=== PATIENT | male | born 1940 | race Caucasian/White ===

== ENCOUNTER 2022-11-26 10:11 | Inpatient (IN) | payer OTHER ==
--- OUTSIDE RECORDS SUMMARY | 2022-11-26 10:17 | XMS REPORT | Continuity of Care Document ---
:1940 Author Organization [facility] t Address [address] [place] [address] Care Team Providers Name Role Phone BEL SNEED Attending Clinician Unavailable Bel Sneed Attending Clinician BRIANA KERN Attending Clinician Unavailable [place] LOWERY Admitting Clinician Unavailable [place] Lowery Admitting Clinician Payers Payer Name Policy Type Policy Number Effective Date Expiration Date S jaleel MEDICARE PART A [id number] 2006 00:00:00 [facility] OFFICE OF [id number] 2022 [facility] OON 00:00:00 Problems Condition Condition Condition Status Onset Resolution Last Treating Co mments Source Name Details Category Date Date Treatment Clinician Date PAIN PAIN Diagnosis Active 2022-06-09 Mem oria TAILBONE/ TAILBONE/ 03-30 13:28:00 l FALL FALL 00:00: [place] Active 00 03/30/2022 [facility] 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 Swelling Swelling Problem Active 2022-05-18 Memoria of upper of upper 09:40:54 l limb limb Melecio (finding) (finding) Active Problem 05/18/2022 [facility] Tachycardi Tachycard Problem Active 2022-05-18 Memoria a ia 09:40:54 l (finding) (finding) Herm sophie Active Problem 05/18/2022 [facility] Urinary Urinary Problem Active 2022-05-18 Me moria tract tract 09:40:54 l infectious infectious [facility] disease disease (disorder) (disorder) Active Problem 05/18/2022 [facility] Allergies, Adverse Reactions, Alerts This patient has no known allergies or adverse reactions. Social History Smoking Status Start Date Stop Date Source Social History [facility] Medications Ordered Filled Start Stop Current Ordering Indication Dosage Frequency Signature Comments Components Source Medication Medication Date Date Medication? Clinician (SIG) Name Name acetaminoph Yes 650 mg = 2 Memoria en 325 mg 2-25 tab, PO, l oral 19:47: Q8H, PRN [place] tablet. 00 Pain Score 1-3, 0 Refill(s) melatonin 3 Yes 3 mg = 1 Me moria mg oral 2-25 tab, PO, l tablet 19:43: Bedtime, [place] 00 PRN Sleep, 0 Refill(s) thiamine Yes 100 mg = 1 Mem oria 100 mg oral 2-25 tab, PO, l tablet 19:43: Daily, 0 [place]lecio 00 Refill(s) senna 8.6 Yes 17.2 mg = Mem oria mg oral 2-25 2 tab, PO, l tablet 19:43: BID, PRN Me[place]cio 00 as needed for constipati on, 0 Refill(s) aspirin 81 Yes 81 mg = 1 Me moria mg tablet, 2-25 tab, PO, l enteric 19:42: Daily, 0 Riki n coated 00 Refill(s) folic acid Yes 1 mg = 1 Mem oria 1 mg oral 2-25 tab, PO, l tablet 19:42: Daily, 0 [place] 00 Refill(s) gabapentin Yes 100 mg = 1 M emoria 100 mg oral 2-25 cap, PO, l capsule 19:42: Q8H-06, 0 Willow nn 00 Refill(s) heparin Yes 5,000 unit Haris bushra 5000 2-25 = 1 mL, l units/mL 19:42: SUB-Q, Melecio injectable 00 Q8H, 0 solution Refill(s) ferrous Yes 324 mg = 1 Haris bushra gluconate 2-25 tab, PO, l 324 mg oral 19:30: Every [place]ow nn tablet 00 Other Day, 0 Refill(s) metoprolol Yes 12.5 mg, Mem oria tartrate 2-25 PO, Q12H, l 19:30: hold for [place] SBP <110 or HR <60, 0 Refill(s) César No Notes: Memoria packet 2-23 (Same as: l 13:30: César Odell) aspirin No Notes: Do Memor ia 2-21 not crush l 15:00: or chew. (Same As: Ecotrin) PHOS-NaK No Notes: Memoria 2-16 (Same as: l 13:48: Phos-NaK) Each 1.5 gm pkt has 250mg phosphorou s. Mix w/2.5oz water and stir. Isolyte S No Notes: Memori a PH 7.4 2-16 (Same as: l 1,000 mL 01:17: Isolyte S Herm sophie 00 PH7.4, Normosol-R PH 7.4, Plasma-Lyt e A ) César No Notes: Memoria packet 2-15 (Same as: l 22:30: César Odell) heparin No Notes: Memoria 5000 2-15 porcine l units/mL 22:00: heparin Riki n injectable 00 solution No Notes: Memoria packet 2-14 (Same as: l 22:30: César Unflavored ) Administer ing CÉSAR orally: Mix into 8-10 fl oz of room temperatur e juice, soda, or water. Also mixes well with warm beverages, like coffee or tea. Can be mixed with applesauce . Thoroughly stir for 30-60 seconds or until completely dissolved Dextrose No 12.5 gm, Memor ia 50% Syringe 2-14 25 mL, l (D50W) 19:27: Route: IVP, Drug Form: INJ, Dosing Weight 68.1, kg, PRN, PRN Blood Glucose Results, Start date: 04/28/22 13:27:00 CERTIFIED ORTHOTIST/PEDORTHIST, Duration: 30 day, Stop date: 05/28/22 14:26:00 CDT, 0 glucagon No 1 mg, Memoria 2-14 Route: IM, l 19:27: Drug form: [place] 00 PDR/INJ, PRN, Dosing Weight 68.1, kg, PRN Blood Glucose Results, Start date: 04/28/22 13:27:00 CERTIFIED ORTHOTIST/PEDORTHIST, Duration: 30 day, Stop date: 05/28/22 14:26:00 CDT, 0 insulin No Notes: Memoria lispro 2-14 (Same as: l 19:27: Humalog) [place] 00 Roll in palms of hands gently; Do not shake vigorously . WASTE: F/P - Black; E - Municipal Trash Bin Stable for 28 days at room temperatur e. Expires in days from ____Date hydrALAZINE No Notes: Haris bushra 2-14 (Same as: l 18:28: Apresoline [place] 00 ) Push over 5 minutes potassium No Notes: Memori a chloride 2-14 (Same as: l 17:22: KCL) 10 [place]lecio 00 mEq/100ml product recommende d for peripheral line administra tion. Infuse no faster than 10 mEq/hr if given peripheral ly. sodium No Notes: Memoria phosphate + 2-14 Infuse l Sodium 17:22: over 4 [place] Chloride 00 hour. Do 0.9% IV 250 not infuse mL phosphorou s concurrent ly in the same line as TPN or IVF that contains calcium. For double lumen central lines, phosphorou s may be infused in a separate lumen from TPN. potassium No Notes: Memori a phosphate-s 2-14 (Same as: l odium 17:22: Phos-NaK) Melecio phosphate 00 Each 1.5 250 mg-280 gm pkt has mg-160 mg 250mg oral powder phosphorou for s. Mix reconstitut w/2.5oz ion water and stir. magnesium No Notes: Memori a sulfate 2-14 WASTE: F/P l 17:22: - Sink; E [place] - Municipal Trash Bin calcium No Notes: Memoria gluconate 2-14 Contains: l 17:22: calcium gluconate 20mg/mL NaCl 0.67% 50mL WASTE: F/P - Sink; E - Municipal Trash Bin sugammadex No Route: IV, M emoria (ANES) 2-14 Drug form: l 16:38: SOLN, [place] 00 ONCE, Stop date: 04/28/22 10:38:00 CERTIFIED ORTHOTIST/PEDORTHIST niCARdipine No Route: IV, Memoria (ANES) 2-14 Drug form: l 16:38: INJ, ONCE, Stop date: 04/28/22 10:38:00 CERTIFIED ORTHOTIST/PEDORTHIST Sodium No 1,000 mL, Memori a Chloride 2-14 Rate: 125 l 0.9% IV 16:31: ml/hr, Melecio 1,000 mL 00 Infuse over: 8 hr, Route: IV, Dosing Weight 68.1 kg, Total Volume: 1,000, Start date: 04/28/22 10:31:00 CERTIFIED ORTHOTIST/PEDORTHIST, Duration: 30 day, Stop date: 05/28/22 10:30:00 CDT, BSA: 1.83 m2, 0 ANES No Notes: Memoria hydrALAZINE 2-14 (Same as: l 16:31: Apresoline ) Push over 5 minutes ANES No Notes: Max Memoria acetaminoph 2-14 acetaminop l en 16:31: hen 4000 mg/day (4 gm/day). (Same as: Tylenol Extra Strength) ANES No Notes: Memoria fentaNYL 2-14 (Same as: l 16:31: Sublimaze) Preservati ve free. ANE No Notes: Memoria flumazenil 2-14 (Same as: l 16:31: Romazicon) [place] 00 ANES No Notes: Memoria naloxone 2-14 Same as l 16:31: Narcan ANES No Notes: Memoria ondansetron 2-14 (Same as: l 16:31: Zofran) MEDICATION WASTE Product Size: 4 mg Product Wasted: ___ mg ondansetron No Route: IV, Memoria (ANES) 2-14 Drug form: l 16:16: INJ, ONCE, Stop date: 04/28/22 10:16:00 CERTIFIED ORTHOTIST/PEDORTHIST lidocaine No Route: Memori a (ANES) 2-14 SUB-Q, l 15:24: Drug form: INJ, ONCE, Stop date: 04/28/22 9:24:00 CERTIFIED ORTHOTIST/PEDORTHIST dexamethaso No Route: IV, Memoria ne (ANES) 2-14 Drug form: l 15:24: INJ, ONCE, Stop date: 04/28/22 9:24:00 CERTIFIED ORTHOTIST/PEDORTHIST propofol 2022- No Route: IV, Mem oria (ANES) 2-14 Drug form: l 15:19: INJ, ONCE, Stop date: 04/28/22 9:19:00 CERTIFIED ORTHOTIST/PEDORTHIST rocuronium No Route: IV, M emoria (ANES) 2-14 Drug form: l 15:19: INJ, ONCE, Stop date: 04/28/22 9:19:00 CERTIFIED ORTHOTIST/PEDORTHIST phenylephri No Route: IV, Memoria ne (ANES) 2-14 Drug form: l 100 15:18: INJ, Start Melecio microgram 00 date: 04/28/22 9:18:00 CERTIFIED ORTHOTIST/PEDORTHIST, Stop date: 04/28/22 10:18:00 CERTIFIED ORTHOTIST/PEDORTHIST Sodium No Route: IV, Memor ia Chloride 2-14 Total l 0.9% IV 15:18: Volume: [place] (ANES) 500 00 500, Start mL date: 04/28/22 9:18:00 CERTIFIED ORTHOTIST/PEDORTHIST, Stop date: 04/28/22 10:18:00 CERTIFIED ORTHOTIST/PEDORTHIST fentaNYL No Route: IV, Mem oria (ANES) 2-14 Drug form: l 15:14: INJ, ONCE, Stop date: 04/28/22 9:14:00 CERTIFIED ORTHOTIST/PEDORTHIST ceFAZolin No Route: IV, Me moria (ANES) 2-14 Drug form: l 15:14: INJ, ONCE, Stop date: 04/28/22 9:14:00 CERTIFIED ORTHOTIST/PEDORTHIST phenylephri No Route: IV, Memoria ne (ANES) 2-14 Drug form: l 14:44: INJ, ONCE, Stop date: 04/28/22 8:44:00 CERTIFIED ORTHOTIST/PEDORTHIST levETIRAcet No Route: IV, Memoria am (ANES) 2-14 Drug form: l 100 mg 14:40: INJ, Start [place] date: 04/28/22 8:40:00 CERTIFIED ORTHOTIST/PEDORTHIST, Stop date: 04/28/22 9:40:00 CERTIFIED ORTHOTIST/PEDORTHIST lidocaine-e No Notes: Haris bushra pi 2-14 (Same as: l [id number] 14:35: Xylocaine He rm w/Epinephr ine) vancomycin No Route: IV, M emoria (ANES) 1000 2-14 Drug form: l mg 14:30: INJ, Start date: 04/28/22 8:30:00 CERTIFIED ORTHOTIST/PEDORTHIST, Stop date: 04/28/22 9:30:00 CERTIFIED ORTHOTIST/PEDORTHIST Isolyte S No Route: IV, Me moria PH 7.4 2-14 Total l (ANES) 1000 13:52: Volume: Her lynne mL 00 1,000, Start date: 04/28/22 7:52:00 CERTIFIED ORTHOTIST/PEDORTHIST, Stop date: 04/28/22 8:52:00 CERTIFIED ORTHOTIST/PEDORTHIST Vitamin K1 No Notes: Memor ia + Sodium 04-28 (Same as: l Chloride 10:42: Aqua-Mephy Her lynne 0.9% IV 50 00 ton, mL Vitamin K) MEDICATION WASTE Product Size: 10 mg Product Wasted: ___ mg warfarin No Notes: Samira 2-12 Nurse to l 23:00: ensure [place] 00 documentat ion of patient education per anticoagul ation policy. Avoid large intake of vitamin-K containing foods diet. (Same As: Coumadin) WASTE: F/P - P Waste Black; E - P Waste Black [facility] 3:Reproduc tive risk Hazardous Drug -- Refer to safe handling procedure PPE Matrix warfarin No Notes: Samira 2-11 Nurse to l 23:00: ensure [place] 00 documentat ion of patient education per anticoagul ation policy. Avoid large intake of vitamin-K containing foods diet. (Same As: Coumadin) WASTE: F/P - P Waste Black; E - P Waste Black [facility] Group 3:Reproduc tive risk Hazardous Drug -- Refer to safe handling procedure PPE Matrix warfarin No Notes: Memoria 2-10 Nurse to l 23:00: ensure [place] 00 documentat ion of patient education per anticoagul ation policy. Avoid large intake of vitamin-K containing foods diet. (Same As: Coumadin) WASTE: F/P - P Waste Black; E - P Waste Black [facility]ous [facility] Group 3:Reproduc tive risk Hazardous Drug -- Refer to safe handling procedure PPE Matrix heparin No Notes: Memoria additive 2-07 Total l 25,000 unit 13:23: Concentrat [place]cio [14 00 ion = 50 unit/kg/hr] unit/ ml + Premix Total Diluent volume = Sodium 500 ml Chloride Send Med 0.45% 500 Request 2 mL hours prior to next bag cefdinir No Notes: Memoria 2-02 (Same As: l 00:00: Omnicef) cefdinir No 300 mg, Memori a 2- Route: PO, l 17:40: Drug form: [place] CAP, [id number], Dosing Weight 68.1, kg, Priority: NOW, Start date: 04/15/22 11:40:00 CERTIFIED ORTHOTIST/PEDORTHIST, Duration: 4 day, Stop date: 04/18/22 23:40:00 CERTIFIED ORTHOTIST/PEDORTHIST normal No 250 mL, Memoria saline 0.9% 2 Rate: 250 l IV 250 mL 07:01: ml/hr, Riki n 00 Infuse over: 1 hr, Route: IV, Dosing Weight 68.1 kg, Total Volume: 250, Start date: 04/15/22 1:01:00 CERTIFIED ORTHOTIST/PEDORTHIST, Duration: 30 day, Stop date: 05/15/22 1:00:00 CERTIFIED ORTHOTIST/PEDORTHIST, BSA: 1.83 m2, 0 aspirin 325 No Notes: Haris bushra mg tablet 04-14 Take with l 22:51: food. finasteride No Notes: Not Memoria 1-30 commercial l 21:30: ly [place] 00 available Please see specific instructio ns from Pharmacy for jarrett alford Hazardous Drug Group 3:Reproduc tive risk Hazardous Drug -- Refer to safe handling procedure PPE Matrix cefTRIAXone No Notes: Haris bushra + sterile 04-12 (Same As: l water 10 mL 21:00: Rocephin). [place] 00 MEDICATION WASTE Product Size: 1000 mg Product Wasted: ___ mg acetaminoph No Notes: Do M emoria en 04-12 not exceed l 16:44: 4 gm/day. [place] (Same as: Tylenol) Lactated No 1,000 mL, Haris bushra Ringers IV 04-12 Rate: 75 l 1,000 mL 13:18: ml/hr, Melecio 00 Infuse over: 13.3 hr, Route: IV, Dosing Weight 68.1 kg, Total Volume: 1,000, Priority: STAT, Start date: 04/12/22 7:18:00 CERTIFIED ORTHOTIST/PEDORTHIST, Duration: 1 day, Stop date: 04/13/22 7:17:00 CERTIFIED ORTHOTIST/PEDORTHIST, BSA: 1.83 m2, 0 heparin No Notes: Memoria 5000 27 porcine l units/mL 22:00: heparin Riki n injectable 00 solution Lactated No 1,000 mL, Haris bushra Ringers IV 04-10 Rate: 75 l 1,000 mL 15:13: ml/hr, Melecio 00 Infuse over: 13.3 hr, Route: IV, Dosing Weight 68.1 kg, Total Volume: 1,000, Priority: STAT, Start date: 04/10/22 9:13:00 CERTIFIED ORTHOTIST/PEDORTHIST, Duration: 30 day, Stop date: 05/10/22 9:12:00 CERTIFIED ORTHOTIST/PEDORTHIST, BSA: 1.83 m2, 0 Lactated No 1,000 mL, Haris bushra Ringers IV 04-07 Rate: 75 l 1000 mL 17:30: ml/hr, [place] 00 Infuse over: 13.3 hr, Route: IV, Dosing Weight 68.1 kg, Total Volume: 1,000, Priority: STAT, Start date: 04/07/22 11:30:00 CERTIFIED ORTHOTIST/PEDORTHIST, Duration: 1 day, Stop date: 04/08/22 11:29:00 CERTIFIED ORTHOTIST/PEDORTHIST, BSA: 1.83 m2 heparin No Notes: Memoria additive 1-24 Total l 25,000 unit 03:56: Concentrat [place]io [14 00 ion = 50 unit/kg/hr] unit/ ml + Premix Total Diluent volume = Sodium 500 ml Chloride Send Med 0.45% 500 Request 2 mL hours prior to next bag PlasmaLyte No Notes: Memor ia A PH-7.4 1-22 (Same as: l 1,000 mL 17:40: Isolyte S Herm sophie 00 PH7.4, Normosol-R PH 7.4, Plasma-Lyt e A ) tamsulosin No 0.4 mg, Haris bushra 1-21 Route: PO, l 03:00: Drug form: [place] CAP, Bedtime, Dosing Weight 68.182, kg, Start date: 04/03/22 21:00:00 CERTIFIED ORTHOTIST/PEDORTHIST, Duration: 30 day, Stop date: 05/02/22 21:00:00 CERTIFIED ORTHOTIST/PEDORTHIST melatonin 3 No Notes: Haris bushra mg oral 1-21 (Same as: l tablet 02:43: Melatonin) [place] senna 8.6 No Notes: Memori a mg oral 1-20 (Same as: l tablet 23:00: Senokot) polyethylen No Notes: Haris bushra e glycol 1-20 Dissolve l 3350 23:00: in 8 oz of water or juice. (Same as: Miralax) SMOG Enema No 300 ml, Haris bushra 1-20 Route: HI, l 16:18: Drug Form: [place] 00 CLAUS, Dosing Weight 68.182, kg, ONCE, NOW, Start date: 04/03/22 10:18:00 CERTIFIED ORTHOTIST/PEDORTHIST, Stop date: 04/03/22 10:18:00 CERTIFIED ORTHOTIST/PEDORTHIST, 0 finasteride No Notes: Not Memoria 1-20 commercial l 15:00: ly available Please see specific instructio ns from Pharmacy for jarrett alford Hazardous Drug Group 3:Reproduc tive risk Hazardous Drug -- Refer to safe handling procedure PPE Matrix ferrous No Notes: Memoria gluconate 1-20 Give with l 324 mg oral 15:00: food. iron Melecio tablet 00 elemental 38 jo=975 mg as ferrous sulfate Dose=___mg elemental iron thiamine No Notes: Memoria -20 (Same As: l 15:00: Vitamin [place] 00 B1) folic acid No Notes: Memor ia 04-03 (Same as: l 15:00: Folvite) [place] 00 Tylenol No 1,000 mg = Haris bushra Extra 04-02 2 tab, PO, l Strength 19:18: Q4H, PRN [place]ow nn 500 mg oral 00 PRN, 0 tablet Refill(s) multivitami No 1 tab, PO, Memoria n -19 Daily, 0 l 19:17: Refill(s) [place] 00 warfarin 2 No PO, TAKE 1 M emoria mg oral -19 TAB ORALLY l tablet 19:16: EVERY WED, Willow nn 00 WED, , SAT AND SUN., 0 Refill(s) tamsulosin Yes 0.4 mg = 1 M emoria 0.4 mg oral 04-02 cap, PO, l capsule 19:14: Bedtime, 0 Herm sophie 00 Refill(s) warfarin 2 No PO, TAKE 2 M emoria mg oral -19 TAB ORALLY l tablet 19:14: EVERY MON Riki n 00 AND FRI., 0 Refill(s) polyethylen Yes 17 gm, PO, Memoria e glycol 04-02 Daily, 0 l 3350 oral 19:13: Refill(s) Her lynne powder for 00 reconstitut ion losartan No 100 mg = 1 Mem oria 100 mg oral 04-02 tab, PO, l tablet 19:12: Daily, 0 [place] 00 Refill(s) metoprolol No 100 mg = 1 M emoria tartrate -19 tab, PO, l 100 mg oral 19:12: BID, 0 Herm sophie tablet 00 Refill(s) Aquaphor No 1 appl, Memori a Healing 04-02 TOP, l topical 19:11: Daily, 0 Riki n ointment 00 Refill(s) finasteride Yes 5 mg = 1 Me moria 5 mg oral - tab, PO, l tablet 19:10: Daily, 0 [place] 00 Refill(s) ferrous No 324 mg = 1 Haris bushra gluconate -19 tab, PO, l 324 mg oral 19:08: BID, 0 Herm sophie tablet 00 Refill(s) metoprolol No Notes: Memor ia tartrate -19 (Same as: l 15:00: Lopressor) 12.5 mg=1/2 X 25 mg TAB acetaminoph No Notes: Max Memoria en - acetaminop l 04:00: hen 4000 [place] 00 mg/day (4 gm/day). (Same as: Tylenol Extra Strength) gabapentin No Notes: Memor ia 1-18 (Same as: l 22:00: Neurontin) [place] 00 oxyCODONE No Notes: Memori a immediate 1-18 (Same as: l release 21:33: Roxicodone Herm sophie ) oxyCODONE No Notes: Memori a 1-18 Same as: l 21:33: Roxicodone [place] 00 docusate-se No Notes: Haris bushra nna 50 1-18 (Same as l mg-8.6 mg 15:00: Senokot-S) He rmann oral tablet 00 Equiv. to Aislinn-Colac e. Keppra 500 No Notes: Memor ia mg oral 1-18 (Same l tablet 15:00: as:Keppra) [place] nn 00 aspirin No Notes: Do Memor ia 1-18 not crush l 15:00: or chew. [place] 00 (Same As: Ecotrin) MiraLax No Notes: Memoria 1-18 Dissolve l 14:34: in 8 oz of water or juice. (Same as: Miralax) Isolyte S No Notes: Memori a PH 7.4 1-18 (Same as: l 1,000 mL 14:32: Isolyte S Herm sophie 00 PH7.4, Normosol-R PH 7.4, Plasma-Lyt e A ) remove No Notes: Memoria patch 1-17 Remove l 20:00: patch 12 [place] 00 hours after applicatio n each day. labetalol No 20 mg, 4 Haris bushra -17 mL, Route: l 19:45: IVP, Drug form: INJ, Q2H, Dosing Weight 68.182, kg, PRN Other -See Comment, Priority: STAT, Start date: 03/31/22 13:45:00 CERTIFIED ORTHOTIST/PEDORTHIST, Duration: 3 doses or times, Stop date: Limited # of times, 0 lidocaine No Notes: Memori a 4% topical 03-31 Patch is l film 08:00: applied to Melecio intact skin to cover painful area for up to 12 hours in a 24-hour period (12 hours on and 12 hours off). Please indicate the location of applicatio n site. Site 1: Remove old patch before applicatio n of new patch. (Same as Aspercreme Lidocaine Patch) acetaminoph No Notes: Max Memoria en 03-31 acetaminop l 07:35: hen 4000 [place] 00 mg/day (4 gm/day). (Same as: Tylenol Extra Strength) gabapentin No Notes: Memor ia 03-31 (Same as: l 07:35: Neurontin) [place] 00 tramadol No Notes: Not Mem oria 03-31 to exceed l 07:35: 400mg/day. [place] 00 (Same As: Ultram) esmolol No Notes: Memoria 2500 mg in 03-31 (Same as: l NS 250 mL 03:09: Brevibloc) He rmann (Titrate.) 00 10 mg/ml IV 2,500 mg conc. esmolol No Notes: Memoria 03-31 (Same as: l 03:01: Brevibloc) [place] 00 Omnipaque No 75 mL, Memori a 350 mg/mL 03-31 Route: l 01:42: IVP, Drug Form: SOLN, Dosing Weight 68.182, kg, ONCALL, STAT, Start date: 03/30/22 19:42:00 CERTIFIED ORTHOTIST/PEDORTHIST, Duration: 1 doses or times, Dose = 2.2ml/kg, Max dose = 100ml -- "To be infused by Radiology Staff ONLY" acetaminoph No 650 mg, Mem oria en 1-16 Route: PO, l 18:38: Drug form: [place] 00 TAB, ONCE, Dosing Weight 68.182, kg, Priority: STAT, Start date: 03/30/22 12:38:00 CERTIFIED ORTHOTIST/PEDORTHIST, Stop date: 03/30/22 12:38:00 CERTIFIED ORTHOTIST/PEDORTHIST Vital Signs Vital Name Observation Time Observation Value Comments Source Temperature Oral (F) 2022-05-12 21:55:18 98.5 F [facility] [place] Respitory Rate 2022-05-12 20:00:00 Memori al [place] Systolic (mm Hg) 2022-05-12 20:00:00 Haris rial [place] Diastolic (mm Hg) 2022-05-12 20:00:00 Mem orial [place] Respitory Rate 2022-05-12 19:00:00 Memori al [place] Respitory Rate 2022-05-12 18:00:00 Memori al [place] Systolic (mm Hg) 2022-05-12 18:00:00 Haris rial [place] Diastolic (mm Hg) 2022-05-12 18:00:00 Mem orial [place] Systolic (mm Hg) 2022-05-12 17:00:00 Haris rial [place] Diastolic (mm Hg) 2022-05-12 17:00:00 Mem orial [place] Temperature Oral (F) 2022-05-12 14:43:40 98.9 F [facility] [place] Temperature Oral (F) 2022-05-12 12:02:40 98.1 F [facility] [place] Respitory Rate 2022-05-04 13:00:00 Memori al [place] Systolic (mm Hg) 2022-05-04 13:00:00 Haris rial [place] Diastolic (mm Hg) 2022-05-04 13:00:00 Mem orial [place] Respitory Rate 2022-05-04 12:00:00 Memori al [place] Systolic (mm Hg) 2022-05-04 12:00:00 Haris rial [place] Diastolic (mm Hg) 2022-05-04 12:00:00 Mem orial [place] Respitory Rate 2022-05-04 11:00:00 Memori al [place] Systolic (mm Hg) 2022-05-04 11:00:00 Haris rial [place] Diastolic (mm Hg) 2022-05-04 11:00:00 Mem orial [place] Systolic (mm Hg) 2022-05-04 06:00:00 Haris rial [place] Diastolic (mm Hg) 2022-05-04 06:00:00 Mem orial [place] Respitory Rate 2022-05-04 06:00:00 Memori al [place] Systolic (mm Hg) 2022-05-04 05:00:00 Haris rial [place] Diastolic (mm Hg) 2022-05-04 05:00:00 Mem orial [place] Respitory Rate 2022-05-04 05:00:00 Memori al [place] Systolic (mm Hg) 2022-05-04 04:00:00 Haris rial [place] Diastolic (mm Hg) 2022-05-04 04:00:00 Mem orial [place] Respitory Rate 2022-05-04 04:00:00 Memori al [place] Heart Rate 2022-05-03 13:24:42 [facility] [place] Temperature Oral (F) 2022-05-03 09:28:44 98.2 F [facility] [place] Temperature Oral (F) 2022-05-03 06:04:07 98 F [facility] [place] Temperature Oral (F) 2022-05-02 01:53:32 98.1 F [facility] [place] Heart Rate 2022-04-28 13:30:00 [facility] [place] Heart Rate 2022-04-28 10:49:26 [facility] [place] Height 2022-04-07 04:14:00 175.26 cm [facility] [place] Weight 2022-04-07 04:14:00 [facility] [place] BMI Calculated 2022-04-07 04:14:00 Memori al [place] Heart Rate 2022-04-06 05:07:45 [facility] [place] Temperature Oral (F) 2022-04-06 05:07:14 98.2 F [facility] [place] Systolic (mm Hg) 2022-04-06 05:07:11 Haris rial [place] Diastolic (mm Hg) 2022-04-06 05:07:11 Mem orial [place] Heart Rate 2022-04-06 05:07:11 [facility] [place] Systolic (mm Hg) 2022-04-06 03:51:00 Haris rial [place] Diastolic (mm Hg) 2022-04-06 03:51:00 Mem orial [place] Heart Rate 2022-04-06 03:51:00 [facility] [place] Systolic (mm Hg) 2022-04-06 01:12:02 Haris rial [place] Diastolic (mm Hg) 2022-04-06 01:12:02 Mem orial [place] Temperature Oral (F) 2022-04-06 01:11:58 98.5 F [facility] [place] Temperature Oral (F) 2022-04-05 13:45:48 98.2 F [facility] [place] Respitory Rate 2022-04-05 10:57:07 Memori al [place] Respitory Rate 2022-04-05 06:17:11 Mem[facility] al [place] Respitory Rate 2022-04-05 02:10:13 Mem[facility] al [place] Height 2022-03-30 14:31:00 175.26 cm [facility] [place] BMI Calculated 2022-03-30 14:31:00 [facility] Weight 2022-03-30 14:31:00 [facility] Procedures This patient has no known procedures. Encounters Start End Encounter Admission Attending Care Care Encounter Source Date/Time Date/Time Type Type Clinicians Facility Department ID 2022-08-26 Outpatient [facility] [id number] [place] 11:[place]:15 [id number] [facility] 2022-08-25 Outpatient [facility] [id number] [place] 16:10:11 [id number] [facility] 2022-08-21 Outpatient [facility] [id number] [place] 15:15:14 [id number] [facility] 2022-07-29 Outpatient [facility] [id number] [place] 07:36:52 [id number] [facility] 2022-07-14 Outpatient [facility] [id number] [place] 07:20:54 [id number] [facility] 2022-07-02 Outpatient [facility] [id number] [place] 11:00:08 [id number] [facility] 2022-06-10 Outpatient [facility] [id number] [place] 12:42:18 [id number] [facility] 2022-06-04 Outpatient [facility] [id number] [place] 10:41:08 [id number] [facility] 2022-05-22 Outpatient [facility] [id number] [place] 13:20:12 [id number] [facility] 2022-04-09 Outpatient [facility] [id number] [place] 09:11:52 [id number] [facility] 2022-04-08 Outpatient [facility] [id number] [place] 06:19:39 [id number] [facility] 2022-04-07 Outpatient [facility] [id number] [place] 10:59:11 [id number] [facility] 2022-03-31 Outpatient [facility] [id number] [place] 12:56:40 [id number] [facility] 2022-03-30 Emergency HFD HFD [id number] CYNTHIA - 08:54:52 [facility] 2022-06-11 2022-06-11 Outpatient [facility] [id number] [place] 10:45:00 10:45:00 Health 2022-03-30 2022-05-13 Inpatient [facility] [id number] [place] 14:30:22 01:13:[address] 2022-03-31 2022-05-12 Inpatient E NAREN [facility] MED [id number] 15:02:00 19:13:00 SHIFA 2022-03-30 2022-05-12 Outpatient Naren [facility] [id number] 08:30:22 19:13:00 Shifa 00 2022-04-28 2022-04-28 [facility] [id number] [place] 09:00:00 09:00:00 [facility] 2022-03-30 2022-03-30 Outpatient Naren [facility] [id number] 08:30:22 08:30:22 Shifa 00 2022-03-30 2022-03-30 Outpatient Naren [facility] [id number] 08:30:22 08:30:22 Shifa 00 2022-03-30 2022-03-30 Outpatient Naren [facility] [id number] 08:30:22 08:30:22 Shifa 00 Results Test Description Test Time Test Comments Results Result Comments Source [facility] [place] 2022-05-11 21:22:00 Test Item Value Reference Range Interpretation Comme nts Coronavirus (COVID-19) PRAKASH (test code = Not Detected (05/11/22 3:22 PM) Coronavirus (COVID-19) PRAKASH) [facility] ANSKJEC0707-24-42 08:02:00 Test Item Value Reference Range Interpretation Comments PTH Intact (test code = PTH Intact) 35.1 18.4-80.1 [facility]InanvblSHFOZJGFXA6439-03-60 07:24:00 Test Item Value Reference Range Interpretation Comments MCHC (test code = MCHC) 32.5 32.0-36.0 [facility] CenterUgphizbEWSERVUWQA8322-13-41 07:24:00 Test Item Value Reference Range Interpretation Comments RDW (test code = RDW) 13.8 11.5-14.5 [facility] CenterKswzgqxMVZXCOEYAU5683-70-38 07:24:00 Test Item Value Reference Range Interpretation Comments Platelet (test code = Platelet) 279 133-450 [facility] CenterCihyxmtAEBNTZZLRL3871-19-18 07:24:00 Test Item Value Reference Range Interpretation Comments MPV (test code = MPV) 8.9 7.4-10.4 [facility] CenterWwymnyoAPDBJXRWUF1957-29-12 07:24:00 Test Item Value Reference Range Interpretation Comments Segs (test code = Segs) 71.7 45.0-75.0 [facility] CenterPxcpbsxOSRGHFJMXH0201-07-50 07:24:00 Test Item Value Reference Range Interpretation Comments Lymphocytes (test code = Lymphocytes) 12.9 20.0-40.0 [facility] CenterJuladczBUCWXFNQYK6232-17-96 07:24:00 Test Item Value Reference Range Interpretation Comments Monocytes (test code = Monocytes) 8.5 2.0-12.0 [place] [address]-02-22 07:24:00 Test Item Value Reference Range Interpretation Comments Eosinophils (test code = 6.1 See_Comment [A utomated message] The Eosinophils) system which ge nerated this result tra nsmitted reference range : <=4.0. The reference r migdalia was not used to int erpret this result as normal/abnormal . [facility] CenterYuproixDTEUKRCMLO9822-96-72 07:24:00 Test Item Value Reference Range Interpretation Comments Basophils (test code = 0.8 See_Comment [Aut omated message] The Basophils) system which ge nerated this result tra nsmitted reference range : <=1.0. The reference r migdalia was not used to int erpret this result as normal/abnormal . [place] [address]-02-22 07:24:00 Test Item Value Reference Range Interpretation Comments Neutrophils # (test code = Neutrophils 4.1 1.5-8.1 #) [facility] CenterRczfnxcSPTLOHOXYS3069-05-41 07:24:00 Test Item Value Reference Range Interpretation Comments Lymphocytes # (test code = Lymphocytes 0.7 1.0-5.5 #) [place] [address]-02-22 07:24:00 Test Item Value Reference Range Interpretation Comments Monocytes # (test code 0.5 See_Comment [Aut omated message] The = Monocytes #) system which generated this result tra nsmitted reference range : <=0.8. The reference r migdalia was not used to int erpret this result as normal/abnormal . [place] [address]-02-22 07:24:00 Test Item Value Reference Range Interpretation Comments Eosinophils # (test code 0.4 See_Comment [A utomated message] The = Eosinophils #) system whic h generated this result tra nsmitted reference range : <=0.5. The reference r migdalia was not used to int erpret this result as normal/abnormal . [place] 688313-02-22 07:24:00 Test Item Value Reference Range Interpretation Comments Ca Ion WB (test code = Ca Ion WB) 1.33 1.05-1.25 [place] 688313-02-22 07:24:00 Test Item Value Reference Range Interpretation Comments Ca Ion at pH 7.4 WB (test code = Ca Ion 1.32 1.05-1.25 at pH 7.4 WB) [facility]2023-02-22 07:24:00 Test Item Value Reference Range Interpretation Comments Magnesium Lvl (test code = Magnesium 2.6 1.8-2.4 Lvl) [place] 171813-02-22 07:24:00 Test Item Value Reference Range Interpretation Comments Phosphorus (test code = Phosphorus) 3.0 2.5-4.5 [place] [address]-02-22 07:24:00 Test Item Value Reference Range Interpretation Comments WBC (test code = WBC) 5.8 3.7-10.4 [place] [address]-02-22 07:24:00 Test Item Value Reference Range Interpretation Comments RBC (test code = RBC) 2.89 4.70-6.10 [place] [address]-02-22 07:24:00 Test Item Value Reference Range Interpretation Comments Hgb (test code = Hgb) 8.5 14.0-18.0 [place] [address]-02-22 07:24:00 Test Item Value Reference Range Interpretation Comments Hct (test code = Hct) 26.2 42.0-54.0 [place] [address]-02-22 07:24:00 Test Item Value Reference Range Interpretation Comments MCV (test code = MCV) 90.4 80.0-94.0 [place] [address]-02-22 07:24:00 Test Item Value Reference Range Interpretation Comments MCH (test code = MCH) 29.4 pg 27.0-31.0 [place] 171813-02-21 06:22:00 Test Item Value Reference Range Interpretation Comments Glucose Lvl (test code = Glucose Lvl) 115 70-99 [place] 171813-02-21 06:22:00 Test Item Value Reference Range Interpretation Comments BUN (test code = BUN) 47 7-22 [place] 171813-02-21 06:22:00 Test Item Value Reference Range Interpretation Comments Creatinine Lvl (test code = Creatinine 0.95 0.50-1.40 Lvl) [place] 171813-02-21 06:22:00 Test Item Value Reference Range Interpretation Comments Sodium Lvl (test code = Sodium Lvl) 136 135-145 [place] 171813-02-21 06:22:00 Test Item Value Reference Range Interpretation Comments Potassium Lvl (test code = Potassium 4.8 3.5-5.1 Lvl) [place] 171813-02-21 06:22:00 Test Item Value Reference Range Interpretation Comments Chloride Lvl (test code = Chloride Lvl) 105 95-109 [place] 171813-02-21 06:22:00 Test Item Value Reference Range Interpretation Comments CO2 (test code = CO2) 28 24-32 [place] 171813-02-21 06:22:00 Test Item Value Reference Range Interpretation Comments Calcium Lvl (test code = Calcium Lvl) 9.7 8.5-10.5 [place] 171813-02-21 06:22:00 Test Item Value Reference Range Interpretation Comments AGAP (test code = AGAP) 7.8 10.0-20.0 [place] [address]-02-21 06:22:00 Test Item Value Reference Range Interpretation Comments eGFR (test code = eGFR) 80 [place] 171813-02-21 06:22:00 Test Item Value Reference Range Interpretation Comments Magnesium Lvl (test code = Magnesium 2.2 1.8-2.4 Lvl) [place] [address]-02-21 06:22:00 Test Item Value Reference Range Interpretation Comments Phosphorus (test code = Phosphorus) 2.3 2.5-4.5 [place] [address]-02-21 06:22:00 Test Item Value Reference Range Interpretation Comments PT (test code = PT) 13.4 s 12.0-14.7 [place] [address]-02-21 06:22:00 Test Item Value Reference Range Interpretation Comments INR (test code = INR) 1.02 1 0.85-1.17 [place] [address]-02-21 06:22:00 Test Item Value Reference Range Interpretation Comments PTT (test code = PTT) 32.6 s 22.9-35.8 [place] [address]-02-21 06:22:00 Test Item Value Reference Range Interpretation Comments WBC (test code = WBC) 7.0 3.7-10.4 [place] [address]-02-21 06:22:00 Test Item Value Reference Range Interpretation Comments RBC (test code = RBC) 2.64 4.70-6.10 [place] [address]-02-21 06:22:00 Test Item Value Reference Range Interpretation Comments Hgb (test code = Hgb) 7.6 14.0-18.0 [place] [address]-02-21 06:22:00 Test Item Value Reference Range Interpretation Comments Hct (test code = Hct) 23.5 42.0-54.0 [place] [address]-02-21 06:22:00 Test Item Value Reference Range Interpretation Comments MCV (test code = MCV) 89.0 80.0-94.0 [place] [address]-02-21 06:22:00 Test Item Value Reference Range Interpretation Comments MCH (test code = MCH) 28.9 pg 27.0-31.0 [place] [address]-02-21 06:22:00 Test Item Value Reference Range Interpretation Comments MCHC (test code = MCHC) 32.5 32.0-36.0 [place] [address]-02-21 06:22:00 Test Item Value Reference Range Interpretation Comments RDW (test code = RDW) 13.5 11.5-14.5 [place] [address]-02-21 06:22:00 Test Item Value Reference Range Interpretation Comments Platelet (test code = Platelet) 271 133-450 [place] [address]-02-21 06:22:00 Test Item Value Reference Range Interpretation Comments MPV (test code = MPV) 8.7 7.4-10.4 [place] [address]-02-21 06:22:00 Test Item Value Reference Range Interpretation Comments Segs (test code = Segs) 77.2 45.0-75.0 [place] [address]-02-21 06:22:00 Test Item Value Reference Range Interpretation Comments Lymphocytes (test code = Lymphocytes) 9.9 20.0-40.0 [facility] CenterJeemyjtECEGZAZOPE1381-57-13 06:22:00 Test Item Value Reference Range Interpretation Comments Monocytes (test code = Monocytes) 8.5 2.0-12.0 [place] [address]-02-21 06:22:00 Test Item Value Reference Range Interpretation Comments Eosinophils (test code = 4.0 See_Comment [A utomated message] The Eosinophils) system which nerated this result tra nsmitted reference range : <=4.0. The reference r migdalia was not used to int erpret this result as normal/abnormal . [place] [address]-02-21 06:22:00 Test Item Value Reference Range Interpretation Comments Basophils (test code = 0.4 See_Comment [Aut omated message] The Basophils) system which ge nerated this result tra nsmitted reference range : <=1.0. The reference r migdalia was not used to int erpret this result as normal/abnormal . [place] [address]-02-21 06:22:00 Test Item Value Reference Range Interpretation Comments Neutrophils # (test code = Neutrophils 5.4 1.5-8.1 #) [place] [address]-02-21 06:22:00 Test Item Value Reference Range Interpretation Comments Lymphocytes # (test code = Lymphocytes 0.7 1.0-5.5 #) [facility] CenterTalmhfsKRNZWKAKUV0072-50-88 06:22:00 Test Item Value Reference Range Interpretation Comments Monocytes # (test code 0.6 See_Comment [Aut omated message] The = Monocytes #) system which generated this result tra nsmitted reference range : <=0.8. The reference r migdalia was not used to int erpret this result as normal/abnormal . [place] [address]-02-21 06:22:00 Test Item Value Reference Range Interpretation Comments Eosinophils # (test code 0.3 See_Comment [A utomated message] The = Eosinophils #) system whic h generated this result tra nsmitted reference range : <=0.5. The reference r migdalia was not used to int erpret this result as normal/abnormal . [facility]2023-02-20 06:09:00 Test Item Value Reference Range Interpretation Comments Phosphorus (test code = Phosphorus) 3.0 2.5-4.5 [place] 171813-02-20 06:09:00 Test Item Value Reference Range Interpretation Comments Glucose Lvl (test code = Glucose Lvl) 109 70-99 [place] 171813-02-20 06:09:00 Test Item Value Reference Range Interpretation Comments BUN (test code = BUN) 34 7-22 [place] [address]-02-20 06:09:00 Test Item Value Reference Range Interpretation Comments Creatinine Lvl (test code = Creatinine 0.96 0.50-1.40 Lvl) [place] 171813-02-20 06:09:00 Test Item Value Reference Range Interpretation Comments Sodium Lvl (test code = Sodium Lvl) 136 135-145 [place] 171813-02-20 06:09:00 Test Item Value Reference Range Interpretation Comments Potassium Lvl (test code = Potassium 4.1 3.5-5.1 Lvl) [place] 171813-02-20 06:09:00 Test Item Value Reference Range Interpretation Comments Chloride Lvl (test code = Chloride Lvl) 105 95-109 [facility]2023-02-20 06:09:00 Test Item Value Reference Range Interpretation Comments CO2 (test code = CO2) 28 24-32 [facility]2023-02-20 06:09:00 Test Item Value Reference Range Interpretation Comments Calcium Lvl (test code = Calcium Lvl) 9.3 8.5-10.5 [facility]2023-02-20 06:09:00 Test Item Value Reference Range Interpretation Comments AGAP (test code = AGAP) 7.1 10.0-20.0 [facility]2023-02-20 06:09:00 Test Item Value Reference Range Interpretation Comments eGFR (test code = eGFR) 79 [facility]2023-02-20 06:09:00 Test Item Value Reference Range Interpretation Comments Magnesium Lvl (test code = Magnesium 2.2 1.8-2.4 Lvl) [facility] CenterIkvwlqfQMOSNFLJEC2658-88-42 06:09:00 Test Item Value Reference Range Interpretation Comments Segs (test code = Segs) 78.0 45.0-75.0 [facility] CenterQsqvwbjZKOYAEULSV0365-50-72 06:09:00 Test Item Value Reference Range Interpretation Comments Lymphocytes (test code = Lymphocytes) 8.1 20.0-40.0 [facility] CenterLywqifmSRUPUVWCYU7673-76-53 06:09:00 Test Item Value Reference Range Interpretation Comments Monocytes (test code = Monocytes) 9.7 2.0-12.0 [facility] CenterTfmukzaUAXPJIUWNE0169-48-93 06:09:00 Test Item Value Reference Range Interpretation Comments Eosinophils (test code = 3.8 See_Comment [A utomated message] The Eosinophils) system which ge nerated this result tra nsmitted reference range : <=4.0. The reference r migdalia was not used to int erpret this result as normal/abnormal . [facility] CenterVrntwooEFJSRXOZYS8899-26-41 06:09:00 Test Item Value Reference Range Interpretation Comments Basophils (test code = 0.4 See_Comment [Aut omated message] The Basophils) system which ge nerated this result tra nsmitted reference range : <=1.0. The reference r migdalia was not used to int erpret this result as normal/abnormal . [place] [address]-02-20 06:09:00 Test Item Value Reference Range Interpretation Comments Neutrophils # (test code = Neutrophils 5.3 1.5-8.1 #) [facility] CenterDqxomzqJLMJYHQSNW9762-73-10 06:09:00 Test Item Value Reference Range Interpretation Comments Lymphocytes # (test code = Lymphocytes 0.5 1.0-5.5 #) [facility] CenterVflulplANIUQRVXWJ7627-45-98 06:09:00 Test Item Value Reference Range Interpretation Comments Monocytes # (test code 0.7 See_Comment [Aut omated message] The = Monocytes #) system which generated this result tra nsmitted reference range : <=0.8. The reference r migdalia was not used to int erpret this result as normal/abnormal . [facility] CenterDyxzcpyZMYGZQLPUF7584-65-39 06:09:00 Test Item Value Reference Range Interpretation Comments Eosinophils # (test code 0.3 See_Comment [A utomated message] The = Eosinophils #) system whic h generated this result tra nsmitted reference range : <=0.5. The reference r migdalia was not used to int erpret this result as normal/abnormal . [facility] CenterEohamxsQYBICDUYBR1091-02-73 06:09:00 Test Item Value Reference Range Interpretation Comments WBC (test code = WBC) 6.7 3.7-10.4 [place] [address]-02-20 06:09:00 Test Item Value Reference Range Interpretation Comments RBC (test code = RBC) 2.53 4.70-6.10 [place] [address]-02-20 06:09:00 Test Item Value Reference Range Interpretation Comments Hgb (test code = Hgb) 7.4 14.0-18.0 [place] [address]-02-20 06:09:00 Test Item Value Reference Range Interpretation Comments Hct (test code = Hct) 22.5 42.0-54.0 [place] [address]-02-20 06:09:00 Test Item Value Reference Range Interpretation Comments MCV (test code = MCV) 88.6 80.0-94.0 [place] [address]-02-20 06:09:00 Test Item Value Reference Range Interpretation Comments MCH (test code = MCH) 29.4 pg 27.0-31.0 [facility] CenterMascpttPXBEBEHUCZ5128-73-98 06:09:00 Test Item Value Reference Range Interpretation Comments MCHC (test code = MCHC) 33.1 32.0-36.0 [facility] CenterUqyfttxXAPDEZOLJK5218-39-42 06:09:00 Test Item Value Reference Range Interpretation Comments RDW (test code = RDW) 13.4 11.5-14.5 [facility] CenterYkbllctIHVVMXXVNZ1183-18-18 06:09:00 Test Item Value Reference Range Interpretation Comments Platelet (test code = Platelet) 269 133-450 [facility] CenterLsviqfzARQOYPBLPH9205-58-99 06:09:00 Test Item Value Reference Range Interpretation Comments MPV (test code = MPV) 8.9 7.4-10.4 [facility] CenterFjbzxudCMWIVHIYUD8330-51-18 06:09:00 Test Item Value Reference Range Interpretation Comments PT (test code = PT) 13.2 s 12.0-14.7 [facility] CenterSmyglpgPVANCLEGCJ4196-27-64 06:09:00 Test Item Value Reference Range Interpretation Comments INR (test code = INR) 1.00 1 0.85-1.17 [facility] CenterXdkbuwuXTCYIYQKHT7288-83-65 06:09:00 Test Item Value Reference Range Interpretation Comments PTT (test code = PTT) 34.4 s 22.9-35.8 [facility] MYTWKQE6452-68-22 06:09:00 Test Item Value Reference Range Interpretation Comments Ca Ion WB (test code = Ca Ion WB) 1.29 1.05-1.25 [facility]RO[facility] PIRHEWO8710-84-03 06:09:00 Test Item Value Reference Range Interpretation Comments Ca Ion at pH 7.4 WB (test code = Ca Ion 1.33 1.05-1.25 at pH 7.4 WB) [facility]entonEnel OGK-5 FZGBI1125-91-36 07:06:00 Test Item Value Reference Range Interpretation Comments Magnesium Lvl (test code = Magnesium 2.3 1.8-2.4 Lvl) [facility]enton[facility] OGK-5 XWPXN4980-10-24 07:06:00 Test Item Value Reference Range Interpretation Comments Phosphorus (test code = Phosphorus) 3.1 2.5-4.5 [facility]2023-02-19 07:06:00 Test Item Value Reference Range Interpretation Comments Glucose Lvl (test code = Glucose Lvl) 104 70-99 [facility]2023-02-19 07:06:00 Test Item Value Reference Range Interpretation Comments BUN (test code = BUN) 38 7-22 [place] 171813-02-19 07:06:00 Test Item Value Reference Range Interpretation Comments Creatinine Lvl (test code = Creatinine 0.92 0.50-1.40 Lvl) [place] 171813-02-19 07:06:00 Test Item Value Reference Range Interpretation Comments Sodium Lvl (test code = Sodium Lvl) 137 135-145 [place] 171813-02-19 07:06:00 Test Item Value Reference Range Interpretation Comments Potassium Lvl (test code = Potassium 4.2 3.5-5.1 Lvl) [place] 171813-02-19 07:06:00 Test Item Value Reference Range Interpretation Comments Chloride Lvl (test code = Chloride Lvl) 105 95-109 [place] 171813-02-19 07:06:00 Test Item Value Reference Range Interpretation Comments CO2 (test code = CO2) 28 24-32 [place] 171813-02-19 07:06:00 Test Item Value Reference Range Interpretation Comments Calcium Lvl (test code = Calcium Lvl) 9.2 8.5-10.5 [place] 171813-02-19 07:06:00 Test Item Value Reference Range Interpretation Comments AGAP (test code = AGAP) 8.2 10.0-20.0 [place] 171813-02-19 07:06:00 Test Item Value Reference Range Interpretation Comments eGFR (test code = eGFR) 84 [place] [address]-02-19 07:06:00 Test Item Value Reference Range Interpretation Comments Segs (test code = Segs) 81.1 45.0-75.0 [place] [address]-02-19 07:06:00 Test Item Value Reference Range Interpretation Comments Lymphocytes (test code = Lymphocytes) 7.9 20.0-40.0 [place] [address]-02-19 07:06:00 Test Item Value Reference Range Interpretation Comments Monocytes (test code = Monocytes) 7.4 2.0-12.0 [place] [address]-02-19 07:06:00 Test Item Value Reference Range Interpretation Comments Eosinophils (test code = 3.3 See_Comment [A utomated message] The Eosinophils) system which ge nerated this result tra nsmitted reference range : <=4.0. The reference r migdalia was not used to int erpret this result as normal/abnormal . [facility] CenterJaqdatpWZGGMQBDBN5148-84-50 07:06:00 Test Item Value Reference Range Interpretation Comments Basophils (test code = 0.3 See_Comment [Aut omated message] The Basophils) system which ge nerated this result tra nsmitted reference range : <=1.0. The reference r migdalia was not used to int erpret this result as normal/abnormal . [facility] CenterCiwkkfiTORTXTVLSL7748-41-23 07:06:00 Test Item Value Reference Range Interpretation Comments Neutrophils # (test code = Neutrophils 5.7 1.5-8.1 #) [facility] CenterMlpguxwXVRRVHSRNB2285-98-01 07:06:00 Test Item Value Reference Range Interpretation Comments Lymphocytes # (test code = Lymphocytes 0.6 1.0-5.5 #) [facility] CenterNtjmvnxSRNTQHQQRK1625-19-77 07:06:00 Test Item Value Reference Range Interpretation Comments Monocytes # (test code 0.5 See_Comment [Aut omated message] The = Monocytes #) system which generated this result tra nsmitted reference range : <=0.8. The reference r migdalia was not used to int erpret this result as normal/abnormal . [facility] CenterKcxmparQYETVGUHFF6890-34-13 07:06:00 Test Item Value Reference Range Interpretation Comments Eosinophils # (test code 0.2 See_Comment [A utomated message] The = Eosinophils #) system whic h generated this result tra nsmitted reference range : <=0.5. The reference r migdalia was not used to int erpret this result as normal/abnormal . [facility] CenterMdbxgtbVIPBEAPEIF2466-18-43 07:06:00 Test Item Value Reference Range Interpretation Comments PT (test code = PT) 13.0 s 12.0-14.7 [facility] CenterCfvlmjfCYWMOXWSKL2571-45-76 07:06:00 Test Item Value Reference Range Interpretation Comments INR (test code = INR) 0.98 1 0.85-1.17 [facility] CenterBtpldvnXJGNANIOYD0638-54-02 07:06:00 Test Item Value Reference Range Interpretation Comments PTT (test code = PTT) 35.6 s 22.9-35.8 [place] [address]-02-19 07:06:00 Test Item Value Reference Range Interpretation Comments WBC (test code = WBC) 7.1 3.7-10.4 [place] [address]-02-19 07:06:00 Test Item Value Reference Range Interpretation Comments RBC (test code = RBC) 2.63 4.70-6.10 [place] [address]-02-19 07:06:00 Test Item Value Reference Range Interpretation Comments Hgb (test code = Hgb) 7.6 14.0-18.0 [place] [address]-02-19 07:06:00 Test Item Value Reference Range Interpretation Comments Hct (test code = Hct) 23.4 42.0-54.0 [place] [address]-02-19 07:06:00 Test Item Value Reference Range Interpretation Comments MCV (test code = MCV) 88.9 80.0-94.0 [place] [address]-02-19 07:06:00 Test Item Value Reference Range Interpretation Comments MCH (test code = MCH) 29.0 pg 27.0-31.0 [place] [address]-02-19 07:06:00 Test Item Value Reference Range Interpretation Comments MCHC (test code = MCHC) 32.7 32.0-36.0 [place] [address]-02-19 07:06:00 Test Item Value Reference Range Interpretation Comments RDW (test code = RDW) 13.9 11.5-14.5 [place] [address]-02-19 07:06:00 Test Item Value Reference Range Interpretation Comments Platelet (test code = Platelet) 252 133-450 [facility] CenterBymjvcaKXOVCDBNCO5196-39-43 07:06:00 Test Item Value Reference Range Interpretation Comments MPV (test code = MPV) 9.0 7.4-10.4 [facility]2023-02-18 10:43:00 Test Item Value Reference Range Interpretation Comments Glucose Lvl (test code = Glucose Lvl) 98 70-99 [facility]2023-02-18 10:43:00 Test Item Value Reference Range Interpretation Comments BUN (test code = BUN) 33 7-22 [place] 171813-02-18 10:43:00 Test Item Value Reference Range Interpretation Comments Creatinine Lvl (test code = Creatinine 0.80 0.50-1.40 Lvl) [place] 171813-02-18 10:43:00 Test Item Value Reference Range Interpretation Comments Sodium Lvl (test code = Sodium Lvl) 137 135-145 [place] 171813-02-18 10:43:00 Test Item Value Reference Range Interpretation Comments Potassium Lvl (test code = Potassium 3.8 3.5-5.1 Lvl) [place] 171813-02-18 10:43:00 Test Item Value Reference Range Interpretation Comments Chloride Lvl (test code = Chloride Lvl) 104 95-109 [place] 171813-02-18 10:43:00 Test Item Value Reference Range Interpretation Comments CO2 (test code = CO2) 28 24-32 [place] 171813-02-18 10:43:00 Test Item Value Reference Range Interpretation Comments Calcium Lvl (test code = Calcium Lvl) 9.5 8.5-10.5 [place] 171813-02-18 10:43:00 Test Item Value Reference Range Interpretation Comments AGAP (test code = AGAP) 8.8 10.0-20.0 [facility]2023-02-18 10:43:00 Test Item Value Reference Range Interpretation Comments eGFR (test code = eGFR) 89 [facility]2023-02-18 10:43:00 Test Item Value Reference Range Interpretation Comments Magnesium Lvl (test code = Magnesium 2.3 1.8-2.4 Lvl) [place] 171813-02-18 10:43:00 Test Item Value Reference Range Interpretation Comments Phosphorus (test code = Phosphorus) 2.8 2.5-4.5 [place] 188793-02-18 10:43:00 Test Item Value Reference Range Interpretation Comments Segs (test code = Segs) 76.8 45.0-75.0 [place] [address]-02-18 10:43:00 Test Item Value Reference Range Interpretation Comments Lymphocytes (test code = Lymphocytes) 10.4 20.0-40.0 [place] [address]-02-18 10:43:00 Test Item Value Reference Range Interpretation Comments Monocytes (test code = Monocytes) 9.5 2.0-12.0 [address]02-18 10:43:00 Test Item Value Reference Range Interpretation Comments Eosinophils (test code = 2.9 See_Comment [A utomated message] The Eosinophils) system which ge nerated this result tra nsmitted reference range : <=4.0. The reference r migdalia was not used to int erpret this result as normal/abnormal . [facility] CenterEvcoljrGRDFNLMLZO2681-27-60 10:43:00 Test Item Value Reference Range Interpretation Comments Basophils (test code = 0.4 See_Comment [Aut omated message] The Basophils) system which ge nerated this result tra nsmitted reference range : <=1.0. The reference r migdalia was not used to int erpret this result as normal/abnormal . [facility] CenterYyqpdmzCQVRLKGGIQ6553-55-69 10:43:00 Test Item Value Reference Range Interpretation Comments Neutrophils # (test code = Neutrophils 4.6 1.5-8.1 #) [facility] CenterMoojkweMWAAJHRSAV6599-02-89 10:43:00 Test Item Value Reference Range Interpretation Comments Lymphocytes # (test code = Lymphocytes 0.6 1.0-5.5 #) [facility] CenterStcaobxLJMAIAHJJE5952-71-83 10:43:00 Test Item Value Reference Range Interpretation Comments Monocytes # (test code 0.6 See_Comment [Aut omated message] The = Monocytes #) system which generated this result tra nsmitted reference range : <=0.8. The reference r migdalia was not used to int erpret this result as normal/abnormal . [facility] CenterCcwoqnwRWUBTEWJMN8187-00-56 10:43:00 Test Item Value Reference Range Interpretation Comments Eosinophils # (test code 0.2 See_Comment [A utomated message] The = Eosinophils #) system whic h generated this result tra nsmitted reference range : <=0.5. The reference r migdalia was not used to int erpret this result as normal/abnormal . [facility] CenterOqxpoiiCPLWXWZSLL7825-65-31 10:43:00 Test Item Value Reference Range Interpretation Comments WBC (test code = WBC) 6.0 3.7-10.4 [place] 188793-02-18 10:43:00 Test Item Value Reference Range Interpretation Comments RBC (test code = RBC) 2.61 4.70-6.10 [place] 188793-02-18 10:43:00 Test Item Value Reference Range Interpretation Comments Hgb (test code = Hgb) 7.9 14.0-18.0 [place] 188793-02-18 10:43:00 Test Item Value Reference Range Interpretation Comments Hct (test code = Hct) 23.6 42.0-54.0 [place] 188793-02-18 10:43:00 Test Item Value Reference Range Interpretation Comments MCV (test code = MCV) 90.4 80.0-94.0 [place] 188793-02-18 10:43:00 Test Item Value Reference Range Interpretation Comments MCH (test code = MCH) 30.3 pg 27.0-31.0 [facility] CenterCjxgnpcDZQEXJZCTB7404-98-62 10:43:00 Test Item Value Reference Range Interpretation Comments MCHC (test code = MCHC) 33.5 32.0-36.0 [facility] CenterOpuhrjvFSJOGUUWXS5789-09-07 10:43:00 Test Item Value Reference Range Interpretation Comments RDW (test code = RDW) 13.5 11.5-14.5 [facility] CenterMovwldpQQNDWMJJUS1374-83-97 10:43:00 Test Item Value Reference Range Interpretation Comments Platelet (test code = Platelet) 254 133-450 [facility] CenterBscatqzVIVIFIMSIE3207-61-51 10:43:00 Test Item Value Reference Range Interpretation Comments MPV (test code = MPV) 9.0 7.4-10.4 [facility] CenterFdvjylkCEWKUHSSSB8579-03-93 10:43:00 Test Item Value Reference Range Interpretation Comments PT (test code = PT) 14.0 s 12.0-14.7 [place] 188793-02-18 10:43:00 Test Item Value Reference Range Interpretation Comments INR (test code = INR) 1.08 1 0.85-1.17 [place] [address]-02-18 10:43:00 Test Item Value Reference Range Interpretation Comments PTT (test code = PTT) 34.9 s 22.9-35.8 [facility]2023-02-17 09:37:00 Test Item Value Reference Range Interpretation Comments Magnesium Lvl (test code = Magnesium 2.4 1.8-2.4 Lvl) [facility] [id number] 09:37:00 Test Item Value Reference Range Interpretation Comments Phosphorus (test code = Phosphorus) 2.9 2.5-4.5 [place] [address]-02-17 09:37:00 Test Item Value Reference Range Interpretation Comments Glucose Lvl (test code = Glucose Lvl) 105 70-99 [place] [address]-02-17 09:37:00 Test Item Value Reference Range Interpretation Comments BUN (test code = BUN) 34 7-22 [place] 171813-02-17 09:37:00 Test Item Value Reference Range Interpretation Comments Creatinine Lvl (test code = Creatinine 0.90 0.50-1.40 Lvl) [address]02-17 09:37:00 Test Item Value Reference Range Interpretation Comments Sodium Lvl (test code = Sodium Lvl) 136 135-145 [place] [address]-02-17 09:37:00 Test Item Value Reference Range Interpretation Comments Potassium Lvl (test code = Potassium 3.8 3.5-5.1 Lvl) [place] 171813-02-17 09:37:00 Test Item Value Reference Range Interpretation Comments Chloride Lvl (test code = Chloride Lvl) 105 95-109 [place] [address]-02-17 09:37:00 Test Item Value Reference Range Interpretation Comments CO2 (test code = CO2) 26 24-32 [place] 171813-02-17 09:37:00 Test Item Value Reference Range Interpretation Comments Calcium Lvl (test code = Calcium Lvl) 9.6 8.5-10.5 [place] 171813-02-17 09:37:00 Test Item Value Reference Range Interpretation Comments AGAP (test code = AGAP) 8.8 10.0-20.0 [place] 171813-02-17 09:37:00 Test Item Value Reference Range Interpretation Comments eGFR (test code = eGFR) 86 [facility] [id number] 09:37:00 Test Item Value Reference Range Interpretation Comments Ca Ion WB (test code = Ca Ion WB) 1.28 1.05-1.25 [place] 688313-02-17 09:37:00 Test Item Value Reference Range Interpretation Comments Ca Ion at pH 7.4 WB (test code = Ca Ion 1.26 1.05-1.25 at pH 7.4 WB) [facility] DentonQtaqesoSRLOLLLKWD1369-65-25 07:00:00 Test Item Value Reference Range Interpretation Comments Basophils # (test code 0.1 See_Comment [Aut omated message] The = Basophils #) system which generated this result tra nsmitted reference range : <=0.2. The reference r migdalia was not used to int erpret this result as normal/abnormal . [facility] DentonEaeztalPDGVXYYFOB1646-96-35 21:33:00 Test Item Value Reference Range Interpretation Comments Coronavirus (COVID-19) Not Detected (04/29/22 PRAKASH (test code = 3:33 PM) Coronavirus (COVID-19) PRAKASH) [facility]entonCARDIAC EMGPGNY0560-55-28 07:34:00 Test Item Value Reference Range Interpretation Comments HS Troponin I (test code = HS Troponin 8 I) [facility] CenterannPARATHYROID [id number] 07:34:00 Test Item Value Reference Range Interpretation Comments Ca Ion WB (test code = Ca Ion WB) 1.30 1.05-1.25 [facility] CenterannPARATHYROID IFISQGJ8917-12-76 07:34:00 Test Item Value Reference Range Interpretation Comments Ca Ion at pH 7.4 WB (test code = Ca Ion 1.35 1.05-1.25 at pH 7.4 WB) [facility] DentonHblzytmCDQXMRANPE7882-09-07 16:38:00 Test Item Value Reference Range Interpretation Comments ACT (TEG) Rapid (test code = ACT (TEG) 105 s 86-118 Rapid) [facility] HospitalUcfuvegCCUIWPPQVS1554-35-40 16:38:00 Test Item Value Reference Range Interpretation Comments Split Point Rapid (test code = Split 0.5 min Point Rapid) [facility] DentonJahlbbhNROLMPAMEC2390-43-60 16:38:00 Test Item Value Reference Range Interpretation Comments R-time Rapid (test code = R-time 0.6 min 0.4-0.7 Rapid) [facility] HospitalFqwqcguHQYGPBGRWW4332-22-50 16:38:00 Test Item Value Reference Range Interpretation Comments K-time Rapid (test code = K-time 0.8 min 0.6-2.3 Rapid) [facility] HospitalZbzsufgKIXWXUWTHF2400-03-04 16:38:00 Test Item Value Reference Range Interpretation Comments Angle Rapid (test code = Angle 83 degrees 64-80 Rapid) [facility] HospitalNaljeefGZTQKGIBMU0493-03-48 16:38:00 Test Item Value Reference Range Interpretation Comments Max Amplitude Rapid (test code = Max 80 mm 52-71 Amplitude Rapid) [facility] CenterRwhjibiUYXGBTTYZI7571-04-32 16:38:00 Test Item Value Reference Range Interpretation Comments G-value Rapid (test code = G-value 20.1 5.0-11.6 Rapid) [facility] CenterWobmmdtLFZHJKNZDJ2064-04-34 16:38:00 Test Item Value Reference Range Interpretation Comments Estimated % Lysis Rapid 0.0 See_Comment [Au tomated message] The (test code = Estimated syste m which generated % Lysis Rapid) this result t ransmitted reference range : <=7.5. The reference r migdalia was not used to int erpret this result as normal/abnormal . [facility] CenterVyopta [id number] 15:02:00 Test Item Value Reference Range Interpretation Comments RBC product (test code Product available = RBC product) (04/28/22 9:02 AM) [facility] CenterVyopta SUCMHQJ7318-26-47 09:13:00 Test Item Value Reference Range Interpretation Comments ABO/Rh (test code = ABO/Rh) B POS [facility] [employer] [id number] 09:13:00 Test Item Value Reference Range Interpretation Comments Antibody Scrn (test Negative (04/28/22 3:13 code = Antibody Scrn) AM) [facility] DentonSufwelsSOMDAKVNPH2323-42-34 03:18:00 Test Item Value Reference Range Interpretation Comments ACT (TEG) Rapid (test code = ACT (TEG) 97 s 86-118 Rapid) [facility] DentonKmcbmsdROMCEYSKVC6245-26-16 03:18:00 Test Item Value Reference Range Interpretation Comments Split Point Rapid (test code = Split 0.4 min Point Rapid) [facility] DentonLfilradEFEHYQNAYD5805-67-53 03:18:00 Test Item Value Reference Range Interpretation Comments R-time Rapid (test code = R-time 0.5 min 0.4-0.7 Rapid) [facility] CenterLnkwmcxIKHDWWMYZY1279-92-09 03:18:00 Test Item Value Reference Range Interpretation Comments K-time Rapid (test code = K-time 0.8 min 0.6-2.3 Rapid) [facility] CenterZetmmewVAYYMEVFDY8718-48-32 03:18:00 Test Item Value Reference Range Interpretation Comments Angle Rapid (test code = Angle 83 degrees 64-80 Rapid) [facility] CenterNggfauoNUQZNUGYQA2543-03-86 03:18:00 Test Item Value Reference Range Interpretation Comments Max Amplitude Rapid (test code = Max 79 mm 52-71 Amplitude Rapid) [facility] CenterQvouplqAVYCMMESUT6941-32-55 03:18:00 Test Item Value Reference Range Interpretation Comments G-value Rapid (test code = G-value 18.2 5.0-11.6 Rapid) [facility] CenterHgonnagXMJRNLQGJV8091-40-09 03:18:00 Test Item Value Reference Range Interpretation Comments Estimated % Lysis Rapid 0.0 See_Comment [Au tomated message] The (test code = Estimated syste m which generated % Lysis Rapid) this result t ransmitted reference range : <=7.5. The reference r migdalia was not used to int erpret this result as normal/abnormal . [facility] AND [id number] 01:30:00 Test Item Value Reference Range Interpretation Comments UA Color (test code = Yellow *NA*(04/27/22 UA Color) 7:30 PM) [facility] AND [id number] 01:30:00 Test Item Value Reference Range Interpretation Comments UA Turbidity (test code = Clear (04/27/22 7:30 UA Turbidity) PM) [facility] AND [id number] 01:30:00 Test Item Value Reference Range Interpretation Comments UA Spec Grav (test code = UA Spec 1.010 1 Grav) [facility] AND [id number] 01:30:00 Test Item Value Reference Range Interpretation Comments UA pH (test code = UA pH) 6.0 1 5.0-8.0 [facility] AND [id number] 01:30:00 Test Item Value Reference Range Interpretation Comments UA Protein (test code = UA Negative mg/dL Protein) [facility] AND [id number] 01:30:00 Test Item Value Reference Range Interpretation Comments UA Glucose (test code = UA Negative mg/dL Glucose) [facility] AND [id number] 01:30:00 Test Item Value Reference Range Interpretation Comments UA Ketones (test code = UA Negative mg/dL Ketones) [facility] AND [id number] 01:30:00 Test Item Value Reference Range Interpretation Comments UA Bili (test code = Negative *NA*(04/27/22 UA Bili) 7:30 PM) [facility] [id number] 01:30:00 Test Item Value Reference Range Interpretation Comments UA Blood (test code = Negative (04/27/22 7:30 UA Blood) PM) [facility] [id number] 01:30:00 Test Item Value Reference Range Interpretation Comments UA Urobilinogen (test code = UA 0.2 0.1-1.0 Urobilinogen) [facility] [id number] 01:30:00 Test Item Value Reference Range Interpretation Comments UA Nitrite (test code Negative (04/27/22 7:30 = UA Nitrite) PM) [facility] [id number] 01:30:00 Test Item Value Reference Range Interpretation Comments UA Leuk Est (test Negative (04/27/22 7:30 code = UA Leuk Est) PM) [facility] [id number] 01:30:00 Test Item Value Reference Range Interpretation Comments UA Sq Epi (test code = UA Sq Occasional /LPF Epi) [facility] [id number] 01:30:00 Test Item Value Reference Range Interpretation Comments UA WBC (test code = 2 See_Comment [Automa min message] The UA WBC) system which ge nerated this result transmit min reference range : <=5. The reference range was not used to interpr et this result as delilah l/abnormal. [facility] [id number] 01:30:00 Test Item Value Reference Range Interpretation Comments UA RBC (test code = 1 See_Comment [Automa min message] The UA RBC) system which ge nerated this result transmit min reference range : <=2. The reference range was not used to interpr et this result as delilah l/abnormal. [facility] [id number] 01:30:00 Test Item Value Reference Range Interpretation Comments UA Bacteria (test code = UA Occasional /HPF Bacteria) [facility] [id number] 01:30:00 Test Item Value Reference Range Interpretation Comments UA Mucus (test code = UA Mucus) Few /LPF [facility] CenterPiklfewYTSVUADOLB8002-83-54 09:37:00 Test Item Value Reference Range Interpretation Comments Basophils # (test code 0.1 See_Comment [Aut omated message] The = Basophils #) system which generated this result tra nsmitted reference range : <=0.2. The reference r migdalia was not used to int erpret this result as normal/abnormal . [facility] [employer] [id number] 12:32:00 Test Item Value Reference Range Interpretation Comments Total Protein (test code = Total 6.1 6.4-8.4 Protein) [facility] CenterCar[facility] [id number] 12:32:00 Test Item Value Reference Range Interpretation Comments Albumin Lvl (test code = Albumin Lvl) 2.8 3.5-5.0 [facility] [employer] [id number] 12:32:00 Test Item Value Reference Range Interpretation Comments Globulin (test code = Globulin) 3.3 2.7-4.2 [facility] [id number] 12:32:00 Test Item Value Reference Range Interpretation Comments A/G Ratio (test code = A/G Ratio) 0.8 1 0.7-1.6 [facility] Center[facility] [id number] 12:32:00 Test Item Value Reference Range Interpretation Comments ALT (test code = ALT) 36 See_Comment [Auto mated message] The system which ge nerated this result transmit min reference range : <=65. The reference range was not used to interpr et this result as delilah l/abnormal. [facility] [employer] [id number] 12:32:00 Test Item Value Reference Range Interpretation Comments AST (test code = AST) 20 See_Comment [Auto mated message] The system which ge nerated this result transmit min reference range : <=37. The reference range was not used to interpr et this result as delilah l/abnormal. [facility] [employer] [id number] 12:32:00 Test Item Value Reference Range Interpretation Comments Alk Phos (test code = Alk Phos) 72 39-136 [facility] [employer] [id number] 12:32:00 Test Item Value Reference Range Interpretation Comments Bili Total (test code = Bili Total) 0.4 0.2-1.3 [facility] [employer] [id number] 12:32:00 Test Item Value Reference Range Interpretation Comments Bili Direct (test code no gt See_Comment [Aut omated message] The = Bili Direct) system which generated this result tra nsmitted reference range : <=0.3. The reference r migdalia was not used to int erpret this result as delilah l/abnormal. [facility]2023-02-09 12:32:00 Test Item Value Reference Range Interpretation Comments Bili Indirect Unable to See_Comment [Automated (test code = Bili Calculate message] T he system Indirect) which generated this result transmitted reference range : <=1.0. The reference range was not used to interpret this result as normal/abnormal . [place] [address]-02-06 20:09:00 Test Item Value Reference Range Interpretation Comments ACT (TEG) Rapid (test code = ACT (TEG) 89 s 86-118 Rapid) [place] 188793-02-06 20:09:00 Test Item Value Reference Range Interpretation Comments Split Point Rapid (test code = Split 0.3 min Point Rapid) [place] [address]-02-06 20:09:00 Test Item Value Reference Range Interpretation Comments R-time Rapid (test code = R-time 0.4 min 0.4-0.7 Rapid) [place] [address]-02-06 20:09:00 Test Item Value Reference Range Interpretation Comments K-time Rapid (test code = K-time 0.8 min 0.6-2.3 Rapid) [address]02-06 20:09:00 Test Item Value Reference Range Interpretation Comments Angle Rapid (test code = Angle 83 degrees 64-80 Rapid) [place] [address]-02-06 20:09:00 Test Item Value Reference Range Interpretation Comments Max Amplitude Rapid (test code = Max 82 mm 52-71 Amplitude Rapid) [place] [address]-02-06 20:09:00 Test Item Value Reference Range Interpretation Comments G-value Rapid (test code = G-value 22.3 5.0-11.6 Rapid) [place] [address]-02-06 20:09:00 Test Item Value Reference Range Interpretation Comments Estimated % Lysis Rapid 0.0 See_Comment [Au tomated message] The (test code = Estimated syste m which generated % Lysis Rapid) this result t ransmitted reference range : <=7.5. The reference r migdalia was not used to int erpret this result as normal/abnormal . [facility] AND [id number] 14:26:00 Test Item Value Reference Range Interpretation Comments UA Color (test code = Yellow *NA*(04/20/22 8:26 UA Color) AM) [facility] AND [id number] 14:26:00 Test Item Value Reference Range Interpretation Comments UA Turbidity (test code = Clear (04/20/22 8:26 UA Turbidity) AM) [facility] AND [id number] 14:26:00 Test Item Value Reference Range Interpretation Comments UA Spec Grav (test code = UA Spec 1.010 1 Grav) [facility] AND [id number] 14:26:00 Test Item Value Reference Range Interpretation Comments UA pH (test code = UA pH) 7.5 1 5.0-8.0 [facility] AND [id number] 14:26:00 Test Item Value Reference Range Interpretation Comments UA Protein (test code = UA Negative mg/dL Protein) [facility] AND [id number] 14:26:00 Test Item Value Reference Range Interpretation Comments UA Glucose (test code = UA Negative mg/dL Glucose) [facility] AND [id number] 14:26:00 Test Item Value Reference Range Interpretation Comments UA Ketones (test code = UA Negative mg/dL Ketones) [facility] AND [id number] 14:26:00 Test Item Value Reference Range Interpretation Comments UA Bili (test code = Negative *NA*(04/20/22 UA Bili) 8:26 AM) [facility] AND [id number] 14:26:00 Test Item Value Reference Range Interpretation Comments UA Blood (test code = Negative (04/20/22 8:26 UA Blood) AM) [facility] AND [id number] 14:26:00 Test Item Value Reference Range Interpretation Comments UA Urobilinogen (test code = UA 0.2 0.1-1.0 Urobilinogen) [facility] AND [id number] 14:26:00 Test Item Value Reference Range Interpretation Comments UA Nitrite (test code Negative (04/20/22 8:26 = UA Nitrite) AM) [facility] AND [id number] 14:26:00 Test Item Value Reference Range Interpretation Comments UA Leuk Est (test Negative (04/20/22 8:26 code = UA Leuk Est) AM) [facility] AND [id number] 14:26:00 Test Item Value Reference Range Interpretation Comments UA WBC (test code = 1 See_Comment [Automa min message] The UA WBC) system which ge nerated this result transmit min reference range : <=5. The reference range was not used to interpr et this result as delilah l/abnormal. [facility] AND [id number] 14:26:00 Test Item Value Reference Range Interpretation Comments UA RBC (test code = 1 See_Comment [Automa min message] The UA RBC) system which ge nerated this result transmit min reference range : <=2. The reference range was not used to interpr et this result as delilah l/abnormal. [facility] AND [id number] 14:26:00 Test Item Value Reference Range Interpretation Comments UA Mucus (test code = UA Mucus) Few /LPF [facility] AND [id number] 14:26:00 Test Item Value Reference Range Interpretation Comments UA Sq Epi (test code = None Seen (04/20/22 8:26 UA Sq Epi) AM) [facility] AND [id number] 14:26:00 Test Item Value Reference Range Interpretation Comments UA Comment 1 (test Suboptimal specimen code = UA Comment 1) received. Results may be inaccurate due to the age of the specimen. Interpret results with caution. [facility] [employer] [id number] 09:53:00 Test Item Value Reference Range Interpretation Comments Total Protein (test code = Total 5.8 6.4-8.4 Protein) [facility] [employer] [id number] 09:53:00 Test Item Value Reference Range Interpretation Comments Albumin Lvl (test code = Albumin Lvl) 2.3 3.5-5.0 [facility] [employer] [id number] 09:53:00 Test Item Value Reference Range Interpretation Comments ALT (test code = ALT) 42 See_Comment [Auto mated message] The system which ge nerated this result transmit min reference range : <=65. The reference range was not used to interpr et this result as delilah l/abnormal. [id number] 09:53:00 Test Item Value Reference Range Interpretation Comments AST (test code = AST) 28 See_Comment [Auto mated message] The system which ge nerated this result transmit min reference range : <=37. The reference range was not used to interpr et this result as delilah l/abnormal. [facility]2023-01-30 09:53:00 Test Item Value Reference Range Interpretation Comments Alk Phos (test code = Alk Phos) 79 39-136 [facility] [id number] 09:53:00 Test Item Value Reference Range Interpretation Comments Bili Total (test code = Bili Total) 0.3 0.2-1.3 [facility]2023-01-30 09:53:00 Test Item Value Reference Range Interpretation Comments B/C Ratio (test code = B/C Ratio) 54 1 6-25 [facility]2023-01-30 09:53:00 Test Item Value Reference Range Interpretation Comments Globulin (test code = Globulin) 3.5 2.7-4.2 [facility] [id number] 09:53:00 Test Item Value Reference Range Interpretation Comments A/G Ratio (test code = A/G Ratio) 0.7 1 0.7-1.6 [facility] HermannLEVOFLOXACIN:SUSC:PT:ISOLATE:ORDQN:[id number] 20:31:00 Test Item Value Reference Range Interpretation Comments Culture: Urine (test >100,000 CFU/mL code = Culture: Escherichia coli Urine) [facility] HermannLEVOFLOXACIN:SUSC:PT:ISOLATE:ORDQN:[id number] 20:31:00 Test Item Value Reference Range Interpretation Comments Escherichia coli (test code Escherichia coli = Escherichia coli) [facility] AND [id number] 18:53:00 Test Item Value Reference Range Interpretation Comments UA Color (test code = Yellow *NA*(04/12/22 UA Color) 12:53 PM) [facility] [id number] 18:53:00 Test Item Value Reference Range Interpretation Comments UA Turbidity (test code = Clear (04/12/22 12:53 UA Turbidity) PM) [facility] [id number] 18:53:00 Test Item Value Reference Range Interpretation Comments UA Spec Grav (test code = UA Spec 1.010 1 Grav) [facility] AND [id number] 18:53:00 Test Item Value Reference Range Interpretation Comments UA pH (test code = UA pH) 6.0 1 5.0-8.0 [facility] AND [id number] 18:53:00 Test Item Value Reference Range Interpretation Comments UA Protein (test code = Trace *ABN*(04/12/22 UA Protein) 12:53 PM) [facility] AND [id number] 18:53:00 Test Item Value Reference Range Interpretation Comments UA Glucose (test code Negative (04/12/22 12:53 = UA Glucose) PM) [facility] AND [id number] 18:53:00 Test Item Value Reference Range Interpretation Comments UA Ketones (test code Negative *NA*(04/12/22 = UA Ketones) 12:53 PM) [facility] AND [id number] 18:53:00 Test Item Value Reference Range Interpretation Comments UA Bili (test code = Negative *NA*(04/12/22 UA Bili) 12:53 PM) [facility] AND [id number] 18:53:00 Test Item Value Reference Range Interpretation Comments UA Blood (test code = Trace *ABN*(04/12/22 UA Blood) 12:53 PM) [facility] AND [id number] 18:53:00 Test Item Value Reference Range Interpretation Comments UA Urobilinogen (test code = UA 0.2 0.1-1.0 Urobilinogen) [facility] AND [id number] 18:53:00 Test Item Value Reference Range Interpretation Comments UA Nitrite (test code Positive *ABN*(04/12/22 = UA Nitrite) 12:53 PM) [facility] AND [id number] 18:53:00 Test Item Value Reference Range Interpretation Comments UA Leuk Est (test code Large *ABN*(04/12/22 = UA Leuk Est) 12:53 PM) [facility] AND [id number] 18:53:00 Test Item Value Reference Range Interpretation Comments UA Sq Epi (test code = UA Sq Occasional /LPF Epi) [facility] AND [id number] 18:53:00 Test Item Value Reference Range Interpretation Comments UA WBC (test code = no gt See_Comment [Automa min message] The UA WBC) system which ge nerated this result transmit min reference range : <=5. The reference range was not used to interpr et this result as delilah l/abnormal. [facility] AND [id number] 18:53:00 Test Item Value Reference Range Interpretation Comments UA RBC (test code = 8 See_Comment [Automa min message] The UA RBC) system which ge nerated this result transmit min reference range : <=2. The reference range was not used to interpr et this result as delilah l/abnormal. [facility] AND [id number] 18:53:00 Test Item Value Reference Range Interpretation Comments UA Bacteria (test code = UA Few /HPF Bacteria) [facility] AND [id number] 18:53:00 Test Item Value Reference Range Interpretation Comments UA Mucus (test code = UA Mucus) Few /LPF [facility] AND [id number] 18:53:00 Test Item Value Reference Range Interpretation Comments UA [place] Yeast (test code = UA Occasional /HPF [place] Yeast) [facility] [id number] 11:22:00 Test Item Value Reference Range Interpretation Comments RBC Morph (test code = Normal (04/12/22 5:22 RBC Morph) AM) [facility] CenterQattejkCHLGZTXNJY8158-69-31 11:22:00 Test Item Value Reference Range Interpretation Comments Plt Morph (test code = Normal (04/12/22 5:22 Plt Morph) AM) [facility]2023-01-22 14:43:00 Test Item Value Reference Range Interpretation Comments Glucose Lvl (test code = Glucose Lvl) 96 70-99 [facility]2023-01-22 14:43:00 Test Item Value Reference Range Interpretation Comments BUN (test code = BUN) 36 7-22 [facility]2023-01-22 14:43:00 Test Item Value Reference Range Interpretation Comments Creatinine Lvl (test code = Creatinine 1.10 0.50-1.40 Lvl) [facility]2023-01-22 14:43:00 Test Item Value Reference Range Interpretation Comments Sodium Lvl (test code = Sodium Lvl) 136 135-145 [place] 171813-01-22 14:43:00 Test Item Value Reference Range Interpretation Comments Potassium Lvl (test code = Potassium 4.2 3.5-5.1 Lvl) [place] 171813-01-22 14:43:00 Test Item Value Reference Range Interpretation Comments Chloride Lvl (test code = Chloride Lvl) 103 95-109 [place] 171813-01-22 14:43:00 Test Item Value Reference Range Interpretation Comments CO2 (test code = CO2) 28 24-32 [place] [address]-01-22 14:43:00 Test Item Value Reference Range Interpretation Comments Calcium Lvl (test code = Calcium Lvl) 9.3 8.5-10.5 [place] 171813-01-22 14:43:00 Test Item Value Reference Range Interpretation Comments AGAP (test code = AGAP) 9.2 10.0-20.0 [place] [address]-01-22 14:43:00 Test Item Value Reference Range Interpretation Comments eGFR (test code = eGFR) 68 [place] 188793-01-22 14:43:00 Test Item Value Reference Range Interpretation Comments PT (test code = PT) 13.6 s 12.0-14.7 [place] [address]-01-22 14:43:00 Test Item Value Reference Range Interpretation Comments INR (test code = INR) 1.04 1 0.85-1.17 [place] [address]-01-22 14:43:00 Test Item Value Reference Range Interpretation Comments PTT (test code = PTT) 31.8 s 22.9-35.8 [place] [address]-01-22 14:43:00 Test Item Value Reference Range Interpretation Comments WBC (test code = WBC) 9.5 3.7-10.4 [place] [address]-01-22 14:43:00 Test Item Value Reference Range Interpretation Comments RBC (test code = RBC) 2.82 4.70-6.10 [place] [address]-01-22 14:43:00 Test Item Value Reference Range Interpretation Comments Hgb (test code = Hgb) 8.9 14.0-18.0 [place] [address]-01-22 14:43:00 Test Item Value Reference Range Interpretation Comments Hct (test code = Hct) 25.8 42.0-54.0 [place] [address]-01-22 14:43:00 Test Item Value Reference Range Interpretation Comments MCV (test code = MCV) 91.5 80.0-94.0 [place] [address]-01-22 14:43:00 Test Item Value Reference Range Interpretation Comments MCH (test code = MCH) 31.6 pg 27.0-31.0 [place] [address]-01-22 14:43:00 Test Item Value Reference Range Interpretation Comments MCHC (test code = MCHC) 34.5 32.0-36.0 [place] [address]-01-22 14:43:00 Test Item Value Reference Range Interpretation Comments RDW (test code = RDW) 13.5 11.5-14.5 [place] [address]-01-22 14:43:00 Test Item Value Reference Range Interpretation Comments Platelet (test code = Platelet) 235 133-450 [facility] Cent[id number] 14:43:00 Test Item Value Reference Range Interpretation Comments MPV (test code = MPV) 9.0 7.4-10.4 [place] [address]-01-22 14:43:00 Test Item Value Reference Range Interpretation Comments Segs (test code = Segs) 80.4 45.0-75.0 [place] [address]-01-22 14:43:00 Test Item Value Reference Range Interpretation Comments Lymphocytes (test code = Lymphocytes) 7.9 20.0-40.0 [place] [address]-01-22 14:43:00 Test Item Value Reference Range Interpretation Comments Monocytes (test code = Monocytes) 8.4 2.0-12.0 [place] [address]-01-22 14:43:00 Test Item Value Reference Range Interpretation Comments Eosinophils (test code = 2.9 See_Comment [A utomated message] The Eosinophils) system which ge nerated this result tra nsmitted reference range : <=4.0. The reference r migdalia was not used to int erpret this result as normal/abnormal . [place] [address]-01-22 14:43:00 Test Item Value Reference Range Interpretation Comments Basophils (test code = 0.4 See_Comment [Aut omated message] The Basophils) system which ge nerated this result tra nsmitted reference range : <=1.0. The reference r migdalia was not used to int erpret this result as normal/abnormal . [facility] CenterOirswreRFGPBZLGCF9556-46-67 14:43:00 Test Item Value Reference Range Interpretation Comments Neutrophils # (test code = Neutrophils 7.6 1.5-8.1 #) [facility] CenterOrfhfayKYODIVXDAV0164-86-85 14:43:00 Test Item Value Reference Range Interpretation Comments Lymphocytes # (test code = Lymphocytes 0.7 1.0-5.5 #) [facility] CenterSqppkuyGOBOMZYVDN9119-73-03 14:43:00 Test Item Value Reference Range Interpretation Comments Monocytes # (test code 0.8 See_Comment [Aut omated message] The = Monocytes #) system which generated this result tra nsmitted reference range : <=0.8. The reference r migdalia was not used to int erpret this result as normal/abnormal . [facility] CenterFpnsrmiHYNTSQWGRG2129-37-95 14:43:00 Test Item Value Reference Range Interpretation Comments Eosinophils # (test code 0.3 See_Comment [A utomated message] The = Eosinophils #) system whic h generated this result tra nsmitted reference range : <=0.5. The reference r migdalia was not used to int erpret this result as normal/abnormal . [facility] CenterPuzbbgbYMNSTOLKTC1132-06-54 07:53:00 Test Item Value Reference Range Interpretation Comments PT (test code = PT) 19.5 s 12.0-14.7 [place] [address]-01-20 07:53:00 Test Item Value Reference Range Interpretation Comments INR (test code = INR) 1.64 1 0.85-1.17 [place] [address]-01-20 07:53:00 Test Item Value Reference Range Interpretation Comments PTT (test code = PTT) 41.5 s 22.9-35.8 [place] [address]-01-20 07:53:00 Test Item Value Reference Range Interpretation Comments WBC (test code = WBC) 8.7 3.7-10.4 [place] [address]-01-20 07:53:00 Test Item Value Reference Range Interpretation Comments RBC (test code = RBC) 3.16 4.70-6.10 [place] [address]-01-20 07:53:00 Test Item Value Reference Range Interpretation Comments Hgb (test code = Hgb) 9.9 14.0-18.0 [place] [address]-01-20 07:53:00 Test Item Value Reference Range Interpretation Comments Hct (test code = Hct) 29.1 42.0-54.0 [place] [address]-01-20 07:53:00 Test Item Value Reference Range Interpretation Comments MCV (test code = MCV) 92.3 80.0-94.0 [place] [address]-01-20 07:53:00 Test Item Value Reference Range Interpretation Comments MCH (test code = MCH) 31.4 pg 27.0-31.0 [place] [address]-01-20 07:53:00 Test Item Value Reference Range Interpretation Comments MCHC (test code = MCHC) 34.1 32.0-36.0 [place] [address]-01-20 07:53:00 Test Item Value Reference Range Interpretation Comments RDW (test code = RDW) 13.3 11.5-14.5 [place] [address]-01-20 07:53:00 Test Item Value Reference Range Interpretation Comments Platelet (test code = Platelet) 233 133-450 [facility] CenterInqqnbhWLWRXLDBXT2955-14-65 07:53:00 Test Item Value Reference Range Interpretation Comments MPV (test code = MPV) 9.5 7.4-10.4 [facility]2023-01-19 09:50:00 Test Item Value Reference Range Interpretation Comments Vitamin D, 25-OH, Total (test code = 32 Vitamin D, 25-OH, Total) [facility]2023-01-19 09:50:00 Test Item Value Reference Range Interpretation Comments Glucose Lvl (test code = Glucose Lvl) 82 70-99 [facility]2023-01-19 09:50:00 Test Item Value Reference Range Interpretation Comments BUN (test code = BUN) 19 7-22 [place] 171813-01-19 09:50:00 Test Item Value Reference Range Interpretation Comments Creatinine Lvl (test code = Creatinine 0.98 0.50-1.40 Lvl) [facility]2023-01-19 09:50:00 Test Item Value Reference Range Interpretation Comments Sodium Lvl (test code = Sodium Lvl) 138 135-145 [place] 171813-01-19 09:50:00 Test Item Value Reference Range Interpretation Comments Potassium Lvl (test code = Potassium 4.2 3.5-5.1 Lvl) [place] 171813-01-19 09:50:00 Test Item Value Reference Range Interpretation Comments Chloride Lvl (test code = Chloride Lvl) 103 95-109 [place] 171813-01-19 09:50:00 Test Item Value Reference Range Interpretation Comments CO2 (test code = CO2) 28 24-32 [place] 171813-01-19 09:50:00 Test Item Value Reference Range Interpretation Comments Calcium Lvl (test code = Calcium Lvl) 9.2 8.5-10.5 [place] 171813-01-19 09:50:00 Test Item Value Reference Range Interpretation Comments AGAP (test code = AGAP) 11.2 10.0-20.0 [place] 171813-01-19 09:50:00 Test Item Value Reference Range Interpretation Comments eGFR (test code = eGFR) 78 [place] [address]-01-19 09:50:00 Test Item Value Reference Range Interpretation Comments Segs (test code = Segs) 81.9 45.0-75.0 [place] [address]-01-19 09:50:00 Test Item Value Reference Range Interpretation Comments Lymphocytes (test code = Lymphocytes) 6.9 20.0-40.0 [place] [address]-01-19 09:50:00 Test Item Value Reference Range Interpretation Comments Monocytes (test code = Monocytes) 8.5 2.0-12.0 [place] [address]-01-19 09:50:00 Test Item Value Reference Range Interpretation Comments Eosinophils (test code = 2.4 See_Comment [A utomated message] The Eosinophils) system which ge nerated this result tra nsmitted reference range : <=4.0. The reference r migdalia was not used to int erpret this result as normal/abnormal . [place] [address]-01-19 09:50:00 Test Item Value Reference Range Interpretation Comments Basophils (test code = 0.3 See_Comment [Aut omated message] The Basophils) system which ge nerated this result tra nsmitted reference range : <=1.0. The reference r migdalia was not used to int erpret this result as normal/abnormal . [facility] CenterSdcosxeIFAVQBZLNR7812-70-08 09:50:00 Test Item Value Reference Range Interpretation Comments Neutrophils # (test code = Neutrophils 5.8 1.5-8.1 #) [facility] CenterDlyekxgKXFZFPHSTN4502-44-02 09:50:00 Test Item Value Reference Range Interpretation Comments Lymphocytes # (test code = Lymphocytes 0.5 1.0-5.5 #) [place] [address]-01-19 09:50:00 Test Item Value Reference Range Interpretation Comments Monocytes # (test code 0.6 See_Comment [Aut omated message] The = Monocytes #) system which generated this result tra nsmitted reference range : <=0.8. The reference r migdalia was not used to int erpret this result as normal/abnormal . [facility] CenterAxknganFFRYXEURCJ0317-26-78 09:50:00 Test Item Value Reference Range Interpretation Comments Eosinophils # (test code 0.2 See_Comment [A utomated message] The = Eosinophils #) system whic h generated this result tra nsmitted reference range : <=0.5. The reference r migdalia was not used to int erpret this result as normal/abnormal . [facility] CenterQmouwtvIMBEIAIZNS4442-24-71 09:50:00 Test Item Value Reference Range Interpretation Comments WBC (test code = WBC) 7.0 3.7-10.4 [facility] CenterTygjyqfEMURWFCUMH7403-46-65 09:50:00 Test Item Value Reference Range Interpretation Comments RBC (test code = RBC) 3.06 4.70-6.10 [place] [address]-01-19 09:50:00 Test Item Value Reference Range Interpretation Comments Hgb (test code = Hgb) 9.4 14.0-18.0 [place] [address]-01-19 09:50:00 Test Item Value Reference Range Interpretation Comments Hct (test code = Hct) 28.2 42.0-54.0 [place] [address]-01-19 09:50:00 Test Item Value Reference Range Interpretation Comments MCV (test code = MCV) 92.1 80.0-94.0 [place] [address]-01-19 09:50:00 Test Item Value Reference Range Interpretation Comments MCH (test code = MCH) 30.7 pg 27.0-31.0 [facility]QnlkddfEDUDPQYERL9289-63-29 09:50:00 Test Item Value Reference Range Interpretation Comments MCHC (test code = MCHC) 33.3 32.0-36.0 [facility] HospitalLlgngapFZXHNSOGOB8991-01-64 09:50:00 Test Item Value Reference Range Interpretation Comments RDW (test code = RDW) 13.1 11.5-14.5 [facility] HospitalIiyfjgoRFJYUEAKZK7255-47-33 09:50:00 Test Item Value Reference Range Interpretation Comments Platelet (test code = Platelet) 223 133-450 [facility] CenterHlhqhraFLVKWZXYGR4412-54-02 09:50:00 Test Item Value Reference Range Interpretation Comments MPV (test code = MPV) 9.6 7.4-10.4 [facility] CenterQlplekpBINKFHBBKT7108-47-86 09:50:00 Test Item Value Reference Range Interpretation Comments PT (test code = PT) 22.1 s 12.0-14.7 [facility] HospitalCfpfhtdLWCQJQKVIG6250-40-53 09:50:00 Test Item Value Reference Range Interpretation Comments INR (test code = INR) 1.92 1 0.85-1.17 [facility] CenterGqnhxxrGOSXHULCDJ9819-01-47 09:50:00 Test Item Value Reference Range Interpretation Comments PTT (test code = PTT) 44.2 s 22.9-35.8 [facility] CenterQoucvncODBPFDCCRI8789-24-36 09:50:00 Test Item Value Reference Range Interpretation Comments PT (test code = PT) 22.0 s 12.0-14.7 [facility] CenterSwpryvpDWUTJQNSRV2991-47-36 09:50:00 Test Item Value Reference Range Interpretation Comments INR (test code = INR) 1.91 1 0.85-1.17 [facility] EMIQ0550-02-17 19:55:00 Test Item Value Reference Range Interpretation Comments U Creatinine (test code = U Creatinine) 67.60 [facility] [id number] 19:55:00 Test Item Value Reference Range Interpretation Comments U Sodium (test code = U Sodium) 69 [facility] BHMPU4022-49-55 06:51:00 Test Item Value Reference Range Interpretation Comments Glucose Lvl (test code = Glucose Lvl) 100 70-99 [place] 171813-01-18 06:51:00 Test Item Value Reference Range Interpretation Comments BUN (test code = BUN) 30 7-22 [place] 171813-01-18 06:51:00 Test Item Value Reference Range Interpretation Comments Creatinine Lvl (test code = Creatinine 1.43 0.50-1.40 Lvl) [place] 171813-01-18 06:51:00 Test Item Value Reference Range Interpretation Comments Sodium Lvl (test code = Sodium Lvl) 137 135-145 [place] 171813-01-18 06:51:00 Test Item Value Reference Range Interpretation Comments Potassium Lvl (test code = Potassium 4.0 3.5-5.1 Lvl) [place] 171813-01-18 06:51:00 Test Item Value Reference Range Interpretation Comments Chloride Lvl (test code = Chloride Lvl) 105 95-109 [place] 171813-01-18 06:51:00 Test Item Value Reference Range Interpretation Comments CO2 (test code = CO2) 24 24-32 [place] 171813-01-18 06:51:00 Test Item Value Reference Range Interpretation Comments AGAP (test code = AGAP) 12.0 10.0-20.0 [place] 171813-01-18 06:51:00 Test Item Value Reference Range Interpretation Comments Calcium Lvl (test code = Calcium Lvl) 9.5 8.5-10.5 [place] 171813-01-18 06:51:00 Test Item Value Reference Range Interpretation Comments eGFR (test code = eGFR) 50 [place] [address]-01-17 11:01:00 Test Item Value Reference Range Interpretation Comments Segs (test code = Segs) 81.1 45.0-75.0 [place] [address]-01-17 11:01:00 Test Item Value Reference Range Interpretation Comments Lymphocytes (test code = Lymphocytes) 7.6 20.0-40.0 [place] [address]-01-17 11:01:00 Test Item Value Reference Range Interpretation Comments Monocytes (test code = Monocytes) 9.3 2.0-12.0 [place] [address]-01-17 11:01:00 Test Item Value Reference Range Interpretation Comments Eosinophils (test code = 1.6 See_Comment [A utomated message] The Eosinophils) system which ge nerated this result tra nsmitted reference range : <=4.0. The reference r migdalia was not used to int erpret this result as normal/abnormal . [facility] CenterQjbiaraSOBEOUQKPT2556-80-50 11:01:00 Test Item Value Reference Range Interpretation Comments Basophils (test code = 0.4 See_Comment [Aut omated message] The Basophils) system which ge nerated this result tra nsmitted reference range : <=1.0. The reference r migdalia was not used to int erpret this result as normal/abnormal . [facility] CenterYztjflwVAWESPJCLD3554-01-49 11:01:00 Test Item Value Reference Range Interpretation Comments Neutrophils # (test code = Neutrophils 6.2 1.5-8.1 #) [facility] CenterWqbbrobEIYEWKRNOJ5204-32-47 11:01:00 Test Item Value Reference Range Interpretation Comments Lymphocytes # (test code = Lymphocytes 0.6 1.0-5.5 #) [facility] CenterEfeikwoAHIPTZPAGJ0402-77-42 11:01:00 Test Item Value Reference Range Interpretation Comments Monocytes # (test code 0.7 See_Comment [Aut omated message] The = Monocytes #) system which generated this result tra nsmitted reference range : <=0.8. The reference r migdalia was not used to int erpret this result as normal/abnormal . [facility] CenterIhidcfdWEOLKAIGAE8092-36-78 11:01:00 Test Item Value Reference Range Interpretation Comments Eosinophils # (test code 0.1 See_Comment [A utomated message] The = Eosinophils #) system whic h generated this result tra nsmitted reference range : <=0.5. The reference r migdalia was not used to int erpret this result as normal/abnormal . [facility] Chevia YELEKBD3806-46-83 16:26:00 Test Item Value Reference Range Interpretation Comments Antibody Scrn (test Negative (03/30/22 code = Antibody Scrn) 10:26 AM) [facility] CenterVy[facility] CKRBYTH6436-37-10 16:26:00 Test Item Value Reference Range Interpretation Comments ABO/Rh (test code = ABO/Rh) B POS [facility] MSDJUHT8762-97-91 16:24:00 Test Item Value Reference Range Interpretation Comments FFP product (test code Product available = FFP product) (03/30/22 10:24 AM) [facility] CLQJYJC6543[facility]46 16:23:00 Test Item Value Reference Range Interpretation Comments Cryo product (test Modification Required code = Cryo product) (03/30/22 10:23 AM) [facility]xjwupaIJVKDMKQTB6399-07-79 15:45:00 Test Item Value Reference Range Interpretation Comments Coronavirus (COVID-19) Not Detected (03/30/22 PRAKASH (test code = 9:45 AM) Coronavirus (COVID-19) PRAKASH) [facility] CenterRxnuzxnIKAZJRASRP4391-61-45 14:59:00 Test Item Value Reference Range Interpretation Comments ACT (TEG) Rapid (test code = ACT (TEG) 136 s 86-118 Rapid) [facility] CenterRzaiwdqZYBPDDRZBZ5391-02-79 14:59:00 Test Item Value Reference Range Interpretation Comments Split Point Rapid (test code = Split 0.8 min Point Rapid) [facility] CenterCmqlfooWUADMPKZFS7692-81-57 14:59:00 Test Item Value Reference Range Interpretation Comments R-time Rapid (test code = R-time 0.9 min 0.4-0.7 Rapid) [facility] [id number] 14:59:00 Test Item Value Reference Range Interpretation Comments K-time Rapid (test code = K-time 0.8 min 0.6-2.3 Rapid) [id number] 14:59:00 Test Item Value Reference Range Interpretation Comments Angle Rapid (test code = Angle 81 degrees 64-80 Rapid) [facility] [id number] 14:59:00 Test Item Value Reference Range Interpretation Comments Max Amplitude Rapid (test code = Max 78 mm 52-71 Amplitude Rapid) [facility] [id number] 14:59:00 Test Item Value Reference Range Interpretation Comments G-value Rapid (test code = G-value 17.4 5.0-11.6 Rapid) [facility] [id number] 14:59:00 Test Item Value Reference Range Interpretation Comments Estimated % Lysis Rapid 0.0 See_Comment [Au tomated message] The (test code = Estimated syste m which generated % Lysis Rapid) this result t ransmitted reference range : <=7.5. The reference r migdalia was not used to int erpret this result as normal/abnormal . [id number] 14:59:00 Test Item Value Reference Range Interpretation Comments Influ A PRAKASH (test Not Detected (03/30/22 code = Influ A PRAKASH) 8:59 AM) [id number] 14:59:00 Test Item Value Reference Range Interpretation Comments Influ B PRAKASH (test Not Detected (03/30/22 code = Influ B PRAKASH) 8:59 AM) [place] [id number] 14:59:00 Test Item Value Reference Range Interpretation Comments RSV PRAKASH (test code = Not Detected (03/30/22 RSV PRAKASH) 8:59 AM) [address]01-16 14:59:00 Test Item Value Reference Range Interpretation Comments Coronavirus (COVID-19) Not Detected (03/30/22 PRAKASH (test code = 8:59 AM) Coronavirus (COVID-19) PRAKASH) [facility] Notes Date/Time Note Provider Source 2022-05-04 EXAM: XR PELVIS 3 VIEWS [facility] 17:18:00-00:00 DATE: 05/04/2022 17:18 Center INDICATION: Pelvic fracture follow-up COMPARISON: Pelvic radiographs 04/14/2022 TECHNIQUE: AP, inlet, and outlet views of the pe lvis FINDINGS: Evaluation of limi min due to patient's generalized diminished bone mineral density. No displaced fracture identified. 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 No pubic symphysis or sa croiliac joint diastasis. 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 Mild arterial calcification. Multiple surgical clips overlie the right inguinal region. IMPRESSION: Satisfactory ali gnment of the pelvic ring. Questionable nondisplaced fracture of S3 seen on prior CT is not radiographically visible. 2022-05-04 EXAM: CT BRAIN WITHOUT CONTRAST [facility] 01:48:50-00:00 DATE: 05/04/2022 Center INDICATION: - assess for post op hemorrhage prio r to starting heparin. COMPARISON: CT brain without contrast on 023, and 05/01/2022. TECHNIQUE: Axial CT images o f the brain were obtained. Sagittal and coronal reformats. IV contrast: None DLP: Refer to CT protocol form FINDINGS: Interval removal of extra-axial drainage cathete rs. No evidence of extra-axial h emorrhage. Again noted mixed density collection is present. Convexities, however overall decrease in size when compared to prior. Again noted chronic remodeling of the frontal lo be contours. Again visualized bilateral b urr hole craniotomies, with associated postoperative changes. IMPRESSION: Status post bilateral craniotomy, no evidence of new or recurrent hemorrhage. 2022-05-01 [facility] 05:56:43-00:00 EXAMINATION: CT head without contrast Center DATE: 05/01/2022 INDICATION: Subdural hemorrhage. FINDINGS: Noncontrast CT images of the head are compared t o study dated 04/28/2022. Over the interval, extra-axi al drainage catheters have been removed.. There is no new extra-axial hemorrhage. Mixed density collections present over both convexities, similar in size to the comparison. There is chronic remodeling of the frontal lobe contours, but the size of the collections is smaller than on the baseline study of 04/28/2022. Postoperative changes of viral lateral of fuad hole craniotomy again noted. IMPRESSION: Interval removal of extra-ax ial drainage catheters. No new or recurrent hemorrhage. 2022-04-29 EXAM: XR CHEST 1 VIEW [facility] 00:59:00-00:00 DATE: 04/29/2022 0:59 Center INDICATION: - Respiratory distress. TECHNIQUE: Chest 1 view FINDINGS: Comparison is made to March 30. Cardiomediastinal silhouette and postoperative changes are stable. A left subclavian ICD remains in place. There is mild subsegmental a telectasis at the left base. The lungs are otherwise clear. No pleural effusions. IMPRESSION: Mild left basilar subsegmental atele ctasis. 2022-04-28 EXAM: CT BRAIN WITHOUT CONTRAST [facility] 11:58:00-00:00 DATE: 04/28/2022 Center INDICATION: - Post-op, Get on way to [facility] ICU. COMPARISON: CTs 04/28/2022, 04/27/2022, 04/23/2022 TECHNIQUE: Axial CT images o f the brain were obtained. Sagittal and coronal reformats. IV contrast: None DLP: Refer to CT protocol form FINDINGS: New bilateral frontal fuad h oles with subdural drainage catheters. The bilateral frontal subdural hemorrhagic collections are slightly smaller. Mild improvement in mass effect on both frontal lobes. No midline shift or herniation. No new hemorrhage. IMPRESSION: New bilateral frontal subdur al drainage catheters and partial evacuation of the heterogeneous subdural hematomas. Improved mass effect. 2022-04-28 EXAM: CT BRAIN WITHOUT CONTRAST [facility] 03:43:15-00:00 DATE: 04/28/2022 Center INDICATION: ' - asessement of b/l cSDH possible surgical intervention'. COMPARISON: Head CTs 04/27/2022, 04/23/2022, 04/22/19 TECHNIQUE: Noncontrast axial CT images were acquired through the brain. 5 mm axial, sagittal, and coronal images were reviewed. IV contrast: None DLP: Refer to CT protocol form FINDINGS: Unchanged bilateral frontal heterogeneous hemorrhagic subdural collections. Persistent mass effect on the frontal lobes with central displacement and a pointed configuration. No herniation. Unchanged cerebellar atrophy. There is no new intracranial hemorrhage or extra-axial collection. No new parenchymal density abnormality. The ventricles are unchanged in caliber and conf iguration. IMPRESSION: Unchanged thick bilateral fr ontal subdural hemorrhages with mass effect but no herniation. 2022-04-27 EXAM: CT BRAIN WITHOUT CONTRAST [facility] 15:31:07-00:00 DATE: 04/27/2022 15:31 Center INDICATION: Acute cognitive change - altered on heparin infusion COMPARISON: TECHNIQUE: Routine axial images of the brain wer e obtained without contrast. IV contrast: None. FINDINGS: No significant int erval change when compared to the preceding exam. Heterogeneous mixed density subdural collections are seen overlying the bilateral cerebral convexities measuring up to 16 mm in thickness along the bila teral frontal convexities. Persistent mass effect on the cerebral hemispheres. Stable minimal midline shift to the left. Persistent effacement of the ventricular system and c erebral sulci. Stroud-white di fferentiation is maintained. The cerebellar tonsils remain above the foramen magnum. IMPRESSION: Stable mixed density cerebra l convexity subdural hematomas with persistent mass effect on the cerebral hemispheres. 2022-04-23 EXAM: CT BRAIN WITHOUT CONTRAST [facility] 04:11:07-00:00 DATE: 04/23/2022 Center INDICATION: - bilateral SDHs. COMPARISON: CT brain 04/22/2022 TECHNIQUE: Axial CT images o f the brain were obtained. Sagittal and coronal reformats. IV contrast: None DLP: Refer to CT protocol form FINDINGS: There has been no significan t interval change from prior day CT. Heterogenous subdural collections are seen over the bilateral cerebral convexities measuring 11 mm the left, 12 mm on the right. No new a reas of hemorrhage. Unchange d minimal leftward midline shift. There is persistent mass effect on the bilateral cerebral convexities, predominantly to the frontal lobes with persistent effacement of the ventricular system and basal cisterns. Stroud-white matter differenti ation is maintained. Brain parenchymal volume volume loss is evident in the bilateral cerebellar hemispheres Visualized paranasal sinuses and mastoid air rosalba ls are clear. IMPRESSION: No gross significant changes noted as compared t o prior study. * Unchanged heterogenous lukas ateral cerebral convexity subdural hematomas with persistent mass effect in bilateral frontal lobes, as detailed above. 2022-04-22 [facility] 03:47:49-00:00 EXAMINATION: CT head without contrast Center DATE: 04/22/2022 INDICATION: subdural hematoma. Stability scan. O n heparin. FINDINGS: Noncontrast CT images of the head compared to study dated 04/20/2022 and baseline study dated 03/30/2022. Over the most recent interva l, there has been no important change. Mixed density subdural collections are present over both convexities measuring 13 mm on the right and 12 mm on the left. There are no n ew areas of hemorrhage. Ther e is stable mild right left midline shift, and is bilateral mass effect on the hemispheres the distortion of the contour of the convexities and some partial collapse of the v entricular system. Basilar cisterns remain effac ed. The brain parenchyma itself remains unremarkable. There is at least moderate volume loss evident in the cerebellar hemispheres with enlargement of the extra- axial spaces. The nasal sinuses and mastoids are clear. IMPRESSION: Stable mixed density subdural hematomas with per sistent mass effect. 2022-04-20 EXAM: CT BRAIN WITHOUT CONTRAST [facility] 04:00:15-00:00 DATE: 04/20/2022 4:10 AM Center INDICATION: - CTH for possible starting heparin. COMPARISON: CT brain 04/08/2022 TECHNIQUE: Axial CT images o f the brain were obtained. Sagittal and coronal reformats. IV contrast: None DLP: Refer to CT protocol form FINDINGS: Evaluation of acute on chron ic bilateral subdural hematomas. Greatest maximal transverse diameter of the right subdural hematoma is 13 mm, greatest transverse diameter of the left subdural hematoma is 11 mm. Unchanged 3 mm leftward midline shift No new acute intracranial hemorrhage or infarct. The ventricles are normal in size and configurat ion. The skull base, calvarium, a nd included facial bones are unremarkable. The paranasal sinuses are predominantly clear. IMPRESSION: 1. Evolving bilateral subdur al hematomas which appear unchanged in size with associated 3 mm leftward midline shift. 2. No interval adverse change. 2022-04-14 EXAM: XR PELVIS 3 VIEWS [facility] 23:00:00-00:00 DATE: 04/14/2022 19:28 Center INDICATION: - sacral fracture, ap, inlet, outlet COMPARISON: Pelvis CT 03/30/[address] 03/30/2022 TECHNIQUE: AP, inlet and outlet views of the pel vis FINDINGS: Sacral nondisplace d fracture is not visualized on this study. No other acute fractures or malalignment. No pubic symphysis or sacroiliac joint diastasis. No soft tissue abnormality is identified. IMPRESSION: 1. Sacral nondisplaced fracture is not visualize d. 2. Normal alignment of the pelvis and sacroiliac joints. 2022-04-14 Finding of partially occlusi ve acute deep vein thrombus in left internal jugular vein was discussed with Nafisa Garner NP on April 14, 2022, 10:19 AM [facility] 03:57:00-00:00 EXAM: US LEFT UPPER EXTREMITY VENOUS DOPPLER Center DATE: 04/13/2022 18:36 INDICATION: Pain, Limb - swelling ADDITIONAL INFORMATION: None. COMPARISON: None. TECHNIQUE: Multiplanar femi omega, color Doppler, and spectral Doppler ultrasound of the left upper extremity veins. FINDINGS: Left Upper Extremity Veins: Internal Jugular: Partially occlusive acute deep vein thrombosis Subclavian: Patent. Axillary: Patent. Brachial: Patent. Basilic: Patent. Cephalic: Patent. Other: None. IMPRESSION: 1. Partially occlusive acute deep vein t hrombus in left internal jugular vein. 2022-04-08 EXAM: CT BRAIN WITHOUT CONTRAST [facility] 21:38:58-00:00 DATE: 04/08/2022 20:00 Center INDICATION: - reassess new hemorrhages COMPARISON: Multiple CTs of the head since 06 April 2015, the most recent is from today TECHNIQUE: Contiguous CT misael ges of the head were obtained from the skull base to the vertex. The study was reviewed in soft tissue and bone windows. Coronal and sagittal reformatted images were obtained. IV contrast: None. FINDINGS: Unchanged findings of acute on chronic bilateral subdural hematomas. The greatest transverse diameter of the subdural hematoma on the right side measures approximately 13 mm, the greater diameter of the subdural hematoma on the left measures approxim ately 11 mm. The sulci and the ventricles are normal for the patient's age. The stroud-white matter differentiation is preserv ed. No brain parenchymal lesions are seen. 3 mm leftward midline shift. The visible paranasal sinuses and skull base are unremarkable. IMPRESSION: 1. Stable acute on chronic subdural hematomas on both sides. 2. 3 mm leftward midline shift. 2022-04-08 EXAM: CT BRAIN WITHOUT CONTRAST [facility] 13:34:15-00:00 DATE: 04/08/2022 Center INDICATION: - eval ICH with supratherapeutic on heparin. COMPARISON: Head CT 04/06/2022. TECHNIQUE: Axial CT images o f the brain were obtained. Sagittal and coronal reformats. IV contrast: None DLP: Refer to CT protocol form FINDINGS: Bilateral mixed predominantl y low attenuation subdural collection extending along the falx and tentorium leaflets are stable in size measuring up to 15 mm retrogrades and 7 mm on the left. Local mass ef fect on the adjacent brain p arenchyma and 3 mm leftward midline shift is stable. No new acute parenchymal hemorrhage or acute ter ritorial infarction. Ventricles are stable in size and configuration. The skull base, calvarium, and included facial b ones are unremarkable. The paranasal sinuses are predominantly clear. IMPRESSION: No adverse change. Stable bi lateral subdural hematoma and associated 3 mm leftward midline shift. 2022-04-06 EXAM: CT BRAIN WITHOUT CONTRAST [facility] 12:25:00-00:00 DATE: 04/06/2022 Center INDICATION: - follow up on prior SDH;. COMPARISON: Comparison was p erformed with prior CT scan dated March 30, 2022. TECHNIQUE: Axial CT images o f the brain were obtained. Sagittal and coronal reformats. IV contrast: None DLP: Refer to CT protocol form FINDINGS: CT scan examination stable b ilateral cerebral convexities subdural hematohygromas, partially extending to the falx and tectorial leaflets, resulting in effacement of adjacent sulci. Stable minimal 3 mm leftward midline shifting. Otherwise, negative for intr acranial mass effect progression, hydrocephalus or brain herniation Unchanged diffuse cerebellar volume loss. Bilateral intraocular lens prothesis. The paranasal sinuses and mastoid air cells are grossly clear. The skull base, calvarium, and included facial b ones are unremarkable. IMPRESSION: No interval adverse change.. * Stable bilateral cerebral convexities subdural hematohygromas, resulting in effacement of adjacent sulci and minimal 3 mm leftward midline shifting. * Negative for intracranial mass effect progression, hydrocephalus or brain herniation 2022-03-30 EXAM: CTA CHEST WITH CONTRAST [facility] 19:30:00-00:00 EXAM: CTA ABDOMEN AND PELVIS WITH CONTRAST [place] DATE: 03/30/2022 14:39 INDICATION: - eval for dissection ADDITIONAL INFORMATION: None. COMPARISON: None. TECHNIQUE: Volumetric CTA of the chest, abdomen and pelvis is acquired following intravenous administration of contrast. Axial, coronal and sagittal images, including MIPS, are provided. FINDINGS: Substitute Teacher: Noncontributory. VASCULAR: Aorta: Postoperative changes aVR with ascending aorta/hemiarch graft repair. Dissection starts just above the graft extending into the innominate artery, visualized right internal carotid artery as well as left subclavian artery. The dissection extends into the proximal left external iliac artery. There is a fenestration at the aortic arch, at the level of the renal arteries and at the distal endpoint . The false lumen is partial ly thrombosed. The proximal descending aorta measures 4.8 cm (series 9 image 91) and the arch 4.5 cm (series 9 image 88). The descending aorta measures 4.4 x 4.6 cm (series 6 image 137) and the false corey men measures 2.8 cm. The infrarenal aorta is measuring 3.6 x 4.1 cm (series 6 image 350) with the false lumen measuring 2.4 cm. 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 The dissection extends into the v isualized right internal car otid artery measuring 1.6 cm (series 6 image 44) with significant compression of the true lumen. There is mild compression at the origin of the left common carotid artery. Th e left subclavian artery is dilated proximally measuring 1.8 cm. Dominant left vertebral artery. Pulmonary arteries: Normal. MPA: 2.9 cm Celiac artery, SMA and MISAEL: The celiac is arising from the true lumen with mild narrowing at the origin related to median arcuate ligament compression. The SMA is patent arising from the true lumen with significant stenosis in the proximal segment likely related to atherosclerotic disease. MISAEL is patent with atherosclerotic stenosis at the origin from the true lumen. Renal arteries: Single right renal artery is widely patent arising from the true lumen. A single left renal artery is patent with questionable thrombus or mixing artifact at the origin from the false lumen. 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 Atherosclerotic changes in the right common iliac artery. External iliac artery: Disse ction extends into the proximal left external iliac artery. There are diffuse atherosclerotic changes bilaterally without significant focal stenosis. 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 Common femoral artery: Patent without stenosis b ilaterally. Superficial femoral artery: Patent without steno sis bilaterally. NONVASCULAR: Lines, tubes and hardware: None. Lower neck: The visible port ions or the lower neck and thyroid are unremarkable. Axilla: Clear. Airway: Patent. Lungs and pleura: Emphysemat ous changes. Indeterminate 1 cm nodule left lower lobe (series 6 image 220) and 0.4 cm nodule in the right lower lobe (series 6 image 234). Nodular density in the left upper lobe (series 6 image 90) may be related to scarr ing. Mediastinum, [place] and intrathoracic lymph nodes: Normal. Heart and pericardium: Cardi ac device with lead tips in the RA and RV and coronary sinus. Liver: Normal. Biliary tree: No intra- or extrahepatic bile esme t dilation. Gallbladder: Normal. Pancreas: Normal. Spleen: Normal. Adrenals: Normal. Kidneys and ureters: Decreas ed opacification of the left kidney which is probably related to supply from the false lumen with questionable thrombus limited inflow as well. Bilateral perinephric fluid. Cyst in the lower pole of the left kidney. Bladder: Normal. Reproductive organs: Normal. Gastrointestinal tract: Dive rticulosis. Hiatal hernia. Multiple gas-filled loops of small bowel probably reflects ileus. Peritoneum, mesentery and re troperitoneum: No free air, ascites or loculated fluid. Lymph nodes: Normal. Bones: Tarlov cyst. Please r efer to dedicated musculoskeletal pelvic and spinal CTs performed recently. Patchy demineralization which most likely represents osteopenia. Healed left inferior pubic ramus fracture. Soft tissues: Normal. IMPRESSION: 1. 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 Dissection starts above the graft extending into the right brachiocephalic artery and the right internal carotid artery, as well a s the left subclavian artery with dilatation measuring 2.5 cm, 1.6 cm and 1.8 cm respectively. There is significant compression of the right internal carotid artery true lumen with opacification of the false lumen. The descending aorta measures up to 4.8 cm in the proximal segment. The false lumen measures about 2.4 cm and is partially opacified. 2. The dissection extends in to the left common iliac artery with dilatation measuring 2.4 cm as well as the proximal left external iliac artery. 3. Asymmetric decreased opac ification of the left kidney is probably related to combination of flow from the false lumen with questionable nonocclusive thrombus or mixing artifact at the origin. 4. There is severe atheroscl erotic narrowing of the proximal SMA (series 9 image 90) and origin of the MISAEL. Mild narrowing of the origin of the celiac probably related to median arcuate ligament compression. 5. 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 6. There is an indeterminate 1.0 x 0.7 cm nodule in the left lower lobe. Comparison with any prior exam would be helpful. 7. Diffuse patchy deminerali zation throughout the visualized bones most likely represent osteoporosis. 8. There is an expansile cys tic lesion involving the right S1 neural foramina (series 5 image 33), consistent with a Tarlov cyst. 9. Healed fracture of the left inferior pubic ra mus. 10. Multiple noninflamed diverticuli. 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 Gordon via telephone at 03/30/2022 20:23 by Breezy Sterling MD 2022-03-30 EXAM: CT PELVIS WITHOUT CONTRAST [facility] 19:30:00-00:00 EXAM: 3D RECONSTRUCTIONS Center DATE: 03/30/2022 13:10 INDICATION: - sacral fracture, assessing pelvic ring COMPARISON: Lumbar spine CT March 30, 2022 093 1 hours TECHNIQUE: Volumetric CT of the pelvis is acquired without contrast. Axial, coronal and sagittal images are provided. 3D volume-rendered reconstructions are created at the acquisition workstation. IV contrast: None. DLP: Refer to CT protocol form [place] SECTION: ER FINDINGS: Substitute Teacher: Noncontributory. Bones: Again noted is the an terior buckling of the sacrum at S3 which could represent a fracture of indeterminate age. Remainder the pelvic ring is intact. No pubic symphysis or sacroiliac joint diastas is. There is patchy deminera lization throughout the pelvis most pronounced in both femoral heads. This most likely represents osteoporosis but the possibility of multiple myeloma or hematogenously sprea d bone metastases might be c onsidered in the proper clinical setting. Expansile cystic lesion is seen involving the right S1 neural foramina measuring 3.0 x 2.3 cm (series 5 image 34) most likely repres ents a Tarlov cyst. Healed fracture of the left inferior pubic ramus. Intrapelvic soft tissues: Multiple noninflamed d iverticuli. Surrounding soft tissues: Within normal limits. IMPRESSION: 1. Possible buckle fracture of the sacrum at S3, age indeterminate, seen somewhat better on the lumbar spine CT because of greater image detail. 2. Patchy demineralization s een throughout the pelvis and femurs, which may simply indicate osteoporosis but might indicate myeloma versus metastatic disease in the proper clinical setting. 3. 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 Recommend further evaluation with MRI of the sacrum. 2022-03-30 EXAM: CT BRAIN WITHOUT CONTRAST [facility] 13:06:33-00:00 DATE: 03/30/2022 Center INDICATION: - stability scan, SDH. COMPARISON: Same day head CT at 0927 hours. TECHNIQUE: Axial CT images o f the brain were obtained. Sagittal and coronal reformats. IV contrast: None DLP: Refer to CT protocol form FINDINGS: No significant interval zaragoza ge in the hypodense subdural collections along the bilateral cerebral convexities with trace linear hyperdensities in the collections, greater in the left frontal convexity. The left subdural collection measuring up to 1.3 cm in maximal thickness and the right subdural collection measures about 1.7 cm in maximal thickness with mass effect upon the underlying brain parenchym a. There is unchanged 0.3 cm right to left midline shift. Trace thin hyperattenuating hemorrhage along the posterior falx and tentorium again noted. The skull base, calvarium, a nd included facial bones are unremarkable. The paranasal sinuses are predominantly clear. IMPRESSION: No significant interval zaragoza ge in the subdural hematomas along the bilateral cerebral convexities, with unchanged mass effect and 0.3 cm right to left midline shift. UT SECTION: Neuro 2022-03-30 EXAM: CT THORACIC SPINE WITHOUT CONTRAST [facility] 13:06:33-00:00 DATE: 03/30/2022 12:42 Center INDICATION: - S2 and S3 fracture, ortho requesti ng entire spine imaging COMPARISON: None TECHNIQUE: Volumetric acquis ition of the thoracic spine without contrast. Axial, sagittal and coronal reconstructions. IV contrast: None. DLP: Please see CT dose report FINDINGS: No acute fracture or malalig nment. Vertebral body and disc heights are preserved. No significant osseous degenerative changes. The pre and paravertebral soft tissues are within normal limits. Evaluation of the aorta is l imited without intravenous contrast. 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 Atherosclerotic calcifications of aorta are present. Diffuse centril obular emphysema is noted. B ilateral dependent atelectasis and/or scarring is noted. Trace left pleural effusion/pleural thickening. Note made of median sternotomy changes IMPRESSION: 1. No acute fracture or malalignment 2. Evaluation of the aorta i s limited without intravenous contrast. Within this limitation, there appears to be type B aortic dissection which is age indeterminate. If there is clinical concern for acut e aortic dissection, recommend correlation with dedicated CTA findings. 3. Centrilobular emphysema 2022-03-30 EXAM: CT BRAIN WITHOUT CONTRAST [facility] 09:17:49-00:00 DATE: 03/30/2022 Center INDICATION: - head trauma. COMPARISON: None. TECHNIQUE: Axial CT images o f the brain were obtained. Sagittal and coronal reformats. IV contrast: None DLP: Refer to CT protocol form FINDINGS: Heterogeneous, predominantly hypodense subdural collections are seen along bilateral cerebral convexities. Associated trace linear hyperdensities are observed in bilateral subdural collections, greater in the left frontal convexit y. The subdural collection on the left measures up to 1.3 cm in maximum thickness on the coronal plane. The subdural collection along the right measures 1.8 cm in maximum thi ckness resulting in local ma ss effect upon the underlying brain parenchyma and trace midline shift towards the left. Trace thin hyperattenuating hemorrhage along the posterior falx and tentorium. The stroud-white matter differ entiation is preserved. preserved. There is no evidence of downward herniations. Ventricular size and configu ration are are preserved. The perimesencephalic cisterns are patent. IMPRESSION: Bilateral subdural hemorrhag es (1.3 cm thick on the left and 1.8 cm on the right) with focal hyperdense blood products that are likely recent and are larger in the left frontal convexity. Associated mas s effect resulting in trace midline shift toward s the left. Critical findings were commu nicated to Dr. Finn from the Emergency Room by neuroradiology fellow over the phone at 10:15 AM. 2022-03-30 EXAM: CT LUMBAR SPINE WITHOUT CONTRAST [facility] 09:17:49-00:00 DATE: 03/30/2022 8:51 Center INDICATION: - concern for spinal fx COMPARISON: None TECHNIQUE: Volumetric acquis ition of the lumbar spine without contrast. Axial, sagittal and coronal reconstructions. IV contrast: None. DLP: Please see CT dose report FINDINGS: Subtle linear lucency noted through the posterior elements of S2 vertebral body on the left series ) and buckling of the anterior cortex at S3, concerning for nondisplaced fractures. Alignment of the spine is normal. Lumbar spine is intact. Moderate to severe L2-3 and L3-4 disc space narrowing is visualized representing degenerative disc disease along with posterior disc osteophyte complexes causing mild central canal stenosis. Multilevel lumbar facet degeneration is present. Incidental note is made of c ongenital nonfusion of posterior elements of L4, L5 and S1. A cystic lesion noted within the spinal canal at S1 extending into the right S1 neural foramen and causing smooth enlargement of the foramen, likely represents Ta rlov cyst. Abdominal aorta is incomplet raul assessed without intravenous contrast and demonstrates chronic dissection versus postsurgical changes an severe aortoiliac atherosclerotic calcifications. Extensive sigmoid diverticul osis is present. Nonspecific bilateral perirenal fat stranding is visualized. No evidence of pre-/paravertebral soft tissue ab normality/hematoma. IMPRESSION: 1. Subtle linear lucency thr ough the posterior elements of S2 and buckling of the anterior cortex of S3, concerning for nondisplaced fractures. Please correlate with focal tenderness 2. Degenerative changes of t he lumbar spine with severe L2-3 and L3-4 degenerative disc disease 3. 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 This can be confirmed with nonemergent MRI findings 4. Incompletely assessed abd ominal aorta which demonstrates chronic dissection versus postsurgical changes and severe aortoiliac atherosclerotic calcifications 5. Extensive sigmoid diverticulosis 2022-03-30 EXAM: CT CERVICAL SPINE WITHOUT CONTRAST [facility] 09:17:49-00:00 DATE: 03/30/2022 8:50 Center INDICATION: - pain after trauma COMPARISON: None TECHNIQUE: Volumetric acquis ition of the cervical spine without contrast. Axial, sagittal and coronal reconstructions. IV contrast: None. DLP: Please see CT dose report FINDINGS: The spine is imaged from the skull bas e to the level of T3. No acute fracture. Moderate to severe multilevel degenerative changes of the spine are visualized with multilevel disc space narrowing most pronounced at C6- 7 level, multilevel small osteophytes, facet and uncovertebral hypertroph y. Minimal degenerative anterolisthesis of C7 over T1. The pre and paravertebral soft tissues are within normal limits. No apical pneumothorax. Note made of biapical centrilo bular emphysematous changes. Note made of median sternotomy changes. IMPRESSION: 1. No acute fracture or malalignment. 2. 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 3. Biapical centrilobular emphysematous changes. 2022-03-30 EXAM: XR LEFT HIP 1 VIEW AND AP PELVIS [facility] 09:03:15-00:00 DATE: 03/30/2022 8:51 Center INDICATION: - Pain after trauma COMPARISON: None TECHNIQUE: A frog-leg latera l radiograph of the left hip and a single AP radiograph of the pelvis FINDINGS: No acute fracture or malalignment is identified. Hip joint spaces are preserved bilaterally. The sacroiliac joints and pubic symphysis are unremarkable. Lower lumbar spine degenerative changes are present. Surgical clips project over the right hip. Diffuse osseous demineralization. No soft tissue abnormality is identified. IMPRESSION: No acute fracture or malalignment 2022-03-30 EXAM: XR CHEST 1 VIEW [facility] 09:03:15-00:00 DATE: 03/30/2022 8:57 Center INDICATION: - pain after Trauma COMPARISON: None TECHNIQUE: AP chest FINDINGS: Mild cardiomegaly and tortuous aorta with aortic arch calcifications. Prostatic cardiac valve is noted. Note made of median sternotomy changes. Lungs are hyperinflated and clear. No focal consolidation. No pleural effusions or pneumothorax. No acute osseous abnormality . Note made of diffuse osteopenia. Surgical clips project over the right upper chest wall IMPRESSION: No acute radiographic abnormality
--- NOTE | 2022-11-26 12:09 | RAD REPORT ---
EXAM DESCRIPTION: Katie Single View11/26/2022 11:57 am CLINICAL HISTORY: weakness COMPARISON: None TECHNIQUE: Portable AP view of the chest. FINDINGS: The lungs are clear. No pneumothorax or effusion. Prosthetic mitral valve in place. [place] of prior CABG The cardiomediastinal contours are otherwise unremarkable. Left chest wall pacer i n place IMPRESSION: No acute cardiopulmonary process.
[2022-11-26 12:16] LABS: Protime INR 3.99
[2022-11-26 12:18] LABS: Absolute Lymphocytes (CBC) 0.8 K/uL (0.7-4.9); Hematocrit 19.4 % (39.6-49.0); Lymphocytes % 9.9 % (15.3-44.8); MCV 85.4 fL (80-100); MPV 8.7 fL (7.6-11.3); Platelets 302 thou/uL (152-406); RBC Red Blood Cell Count 2.28 M/uL (4.33-5.43)
[2022-11-26 12:28] LABS: ALT/SGPT 18 U/L (16-61); AST/SGOT 20 U/L (15-37); Albumin 3.1 g/dL (3.4-5.0); Alkaline Phosphatase 72 U/L (45-117); BUN Blood Urea Nitrogen 37 mg/dL (7-18); Bicarbonate 24 mEq/L (21-32); Bilirubin Total 0.2 mg/dL (0.2-1.0); Glomerular Filtration Rate 46 ml/min (=/>90); Glucose Level 117 mg/dL (74-106); Magnesium 2.3 mg/dL (1.6-2.4); NT PRO-BNP 1846 pg/mL (<450); Potassium 4.4 mEq/L (3.5-5.1); Protein, Total 6.4 g/dL (6.4-8.2); Sodium Level 138 mEq/L (136-145); Troponin High Sensitivity 13.6 pg/mL (<58.9)
[2022-11-26 12:36] LABS: Bilirubin Direct < 0.1 mg/dL (0-0.2); Bilirubin Indirect, Calculated ND mg/dL (0.2-0.8)
--- NOTE | 2022-11-26 13:42 | ER ---
Nurse's Notes [facility] Name: Ehsan Ayala Age: 82 yrs Sex: Male : 1940 Arrival Date: 11/26/2022 Time: 10:11 Bed 13 Private MD: Diagnosis: Symptomatic anemia Presentation: 11/26 10:24 Chief complaint: EMS states: Sent from [facility] for low hgb (5.7), pt does take ph blood thinners, denies abdominal pain, had a BM prior to leaving facility and nurse reported that it was normal in appearance. Pt reports fatigue and mild SOB, pale in appearance upon arrival to ED. Coronavirus screen: Vaccine status: Patient reports receiving the 2nd dose of the covid vaccine. Ebola Screen: No symptoms or risks identified at this time. Initial Sepsis Screen: Does the patient meet any 2 criteria? No. Patient's initial sepsis screen is negative. Does the patient have a suspected source of infection? No. Patient's initial sepsis screen is negative. Risk Assessment: Do you want to hurt yourself or someone else? Patient reports no desire to harm self or others. Onset of symptoms was November 26, 2022. 10:24 Method Of Arrival: EMS: [facility] 10:24 Acuity: CARLOS 3 ph Triage Assessment: 10:30 General: Appears in no apparent distress. comfortable, well groomed, Behavior is calm, ph cooperative, appropriate for age. Pain: Denies pain. Neuro: Level of Consciousness is awake, alert, obeys commands, Oriented to person, place, time, situation. Cardiovascular: Capillary refill < 3 seconds in bilateral fingers Patient's skin is warm and dry. Respiratory: Reports shortness of breath Airway is patent Respiratory effort is even, unlabored. GI: No signs and/or symptoms were reported involving the gastrointestinal system. Patient currently denies abdominal pain, bloody stool, nausea, vomiting. Derm: Skin is pale. Musculoskeletal: Circulation, motion, and sensation intact. Range of motion: intact in all extremities. Historical: - Allergies: 10: No Known Allergies; ph - Immunization history:: Adult Immunizations unknown. - Social history:: Smoking status: Patient denies any tobacco usage or history of. - Family history:: not pertinent. Screenin:26 [facility] ED Fall Risk Assessment (Adult) History of falling in the last 3 months, ph including since admission No falls in past 3 months (0 pts) Confusion or Disorientation No (0 pts) Intoxicated or Sedated No (0 pts) Impaired Gait Yes (1 pt) Mobility Assist Device Used Yes (1 pt) Altered Elimination No (0 pt) Score/Fall Risk Level 0 - 2 = Low Risk Oriented to surroundings, Maintained a safe environment, Provided non-skid footwear, Hourly rounding (assess needs \T\ fall precautionary measures) done. Abuse screen: Denies threats or abuse. Denies injuries from another. Nutritional screening: No deficits noted. Tuberculosis screening: No symptoms or risk factors identified. Assessment: 13:20 General: SEE TRIAGE ASSESSMENT. ph Vital Signs: 10:24 BP 118 / 46; Pulse 57; Resp 18; Temp 97.8; Pulse Ox 98% on R/A; Weight 63.5 kg; Height ph 6 ft. 0 in. ; 12:06 BP 125 / 52; Pulse 60; Resp 18; Pulse Ox 99% on R/A; ph 13:34 BP 123 / 52; Pulse 82; Resp 18; Temp 98.3; Pulse Ox 99% on R/A; ph 10:24 Body Mass Index 18.99 (63.50 kg, 182.88 cm) ph ED Course: 10:17 Patient arrived in ED. rt 10:17 Landen Wooten MD is Attending Physician. rt 10:24 Nury Davies, RN is Primary Nurse. ph 10:26 Triage completed. ph 10:26 Arm band placed on Patient placed in an exam room, on a stretcher, on edge brusher, ph on pulse oximetry. 10:27 Patient has correct armband on for positive identification. Placed in gown. Bed in low ph position. Call light in reach. Side rails up X2. Client placed on continuous cardiac and pulse oximetry monitoring. NIBP monitoring applied. Door closed. Noise minimized. Warm blanket given. 11:59 XRAY Chest (1 view) In Process Unspecified. EDMS 12:00 Inserted saline lock: 22 gauge in left hand, using aseptic technique. ph 13:00 Patient admitted, IV remains in place. ph 13:42 Jitendra March MD is Hospitalizing Provider. rt 13:50 No provider procedures requiring assistance completed. ph Administered Medications: 13:34 Drug: Pantoprazole IVP 80 mg Route: IVP; Site: left hand; ph 13:45 Follow up: Response: No adverse reaction ph Medication: 10:27 VIS not applicable for this client. ph Outcome: 13:42 Decision to Hospitalize by Provider. rt 13:55 Patient left the ED. ph 13:55 Admitted to OR accompanied by nurse. ph 13:55 Condition: stable 13:55 Instructed on the need for admit. Signatures: Dispatcher [employer] Nury Ruvalcaba RN RN Landen Wooten MD MD rt Corrections: (The following items were deleted from the chart) 12:09 12:06 Pulse 60bpm; Resp 18bpm; Pulse Ox 99% RA; ph ph
--- NOTE | 2022-11-26 13:42 | EDPHYS ---
Physician Documentation [facility] Name: Ehsan Ayala Age: 82 yrs Sex: Male : 1940 Arrival Date: 11/26/2022 Time: 10:11 Bed 13 Private MD: ED Physician Landen Wooten HPI: 11/26 10:26 This 82 yrs old Male presents to ER via EMS with complaints of Weakness. rt 10:26 Patient is on Coumadin for mechanical valve, presents to the ED with generalized rt weakness, progressively worsening for the past 2 weeks. Patient reports that his hemoglobin was less than 6 on outpatient labs. Was sent to the ED for further evaluation. The patient does report black stools, however, he is on iron supplementation. He denies any acute change to his stool color or caliber. Denies other acute complaints at this time. Symptoms are moderate severity, no other aggravating or alleviating factors.. Historical: - Allergies: 10:26 No Known Allergies; ph - Immunization history:: Adult Immunizations unknown. - Social history:: Smoking status: Patient denies any tobacco usage or history of. - Family history:: not pertinent. ROS: 10:29 Constitutional: Negative for fever, chills, and weight loss, Cardiovascular: Negative rt for chest pain, palpitations, and edema, Respiratory: Negative for shortness of breath, cough, wheezing, and pleuritic chest pain, Abdomen/GI: Negative for abdominal pain, nausea, vomiting, diarrhea, and constipation, MS/Extremity: Negative for injury and deformity, Skin: Negative for injury, rash, and discoloration, Psych: Negative for depression, anxiety, suicide ideation, homicidal ideation, and hallucinations. 10:29 Neuro: Positive for weakness, Negative for altered mental status. Exam: 10:29 Constitutional: This is a well developed, well nourished patient who is awake, alert, rt and in no acute distress. Head/Face: Normocephalic, atraumatic. Neck: Trachea midline, no thyromegaly or masses palpated, and no cervical lymphadenopathy. Supple, full range of motion without nuchal rigidity, or vertebral point tenderness. No Meningismus. Chest/axilla: Normal chest wall appearance and motion. Nontender with no deformity. No lesions are appreciated. Respiratory: Lungs have equal breath sounds bilaterally, clear to auscultation and percussion. No rales, rhonchi or wheezes noted. No increased work of breathing, no retractions or nasal flaring. Abdomen/GI: Soft, non-tender, with normal bowel sounds. No distension or tympany. No guarding or rebound. No evidence of tenderness throughout. MS/ Extremity: Pulses equal, no cyanosis. Neurovascular intact. Full, normal range of motion. Neuro: Awake and alert, GCS 15, oriented to person, place, time, and situation. Cranial nerves II-XII grossly intact. Motor strength 5/5 in all extremities. Sensory grossly intact. Cerebellar exam normal. Normal gait. Psych: Awake, alert, with orientation to person, place and time. Behavior, mood, and affect are within normal limits. 10:29 Eyes: Pale conjunctiva, extraocular muscles intact. 10:29 ENT: Dry mucous membranes, OP otherwise benign. 10:29 Cardiovascular: Regular rate and rhythm, mechanical valve heard. 10:29 Skin: Pale, no rash. 11:57 ECG was reviewed by the Attending Physician. rt Vital Signs: 10:24 BP 118 / 46; Pulse 57; Resp 18; Temp 97.8; Pulse Ox 98% on R/A; Weight 63.5 kg; Height ph 6 ft. 0 in. ; 12:06 BP 125 / 52; Pulse 60; Resp 18; Pulse Ox 99% on R/A; ph 13:34 BP 123 / 52; Pulse 82; Resp 18; Temp 98.3; Pulse Ox 99% on R/A; ph 10:24 Body Mass Index 18.99 (63.50 kg, 182.88 cm) ph MDM: 10:17 Patient medically screened. rt 15:56 Differential Diagnosis Symptomatic anemia, GI bleed. Data reviewed: vital signs, nurses rt notes. Consideration of Admission/Observation Patient was admitted/placed on observation. Management of patient was discussed with the following: Hospitalist: Agrees to admit. Heel Lift Gouger: Discussed with gastroenterology on-call, will scope the patient today.. I considered the following discharge prescriptions or medication management in the emergency department Medications were administered in the Emergency Department. See MAR. Care significantly affected by the following chronic conditions: Mechanical valve on Coumadin. Counseling: I had a detailed discussion with the patient and/or guardian regarding the historical points, exam findings, and any diagnostic results supporting the discharge/admit diagnosis, lab results, the need for further work-up and treatment in the hospital. 11/26 10:17 Order name: Basic Metabolic Panel; Complete Time: 13:00 rt 11/26 10:17 Order name: CBC with Diff; Complete Time: 13:00 rt 11/26 10:17 Order name: LFT's; Complete Time: 13:00 rt 11/26 10:17 Order name: Magnesium; Complete Time: 13:00 rt 11/26 10:17 Order name: NT PRO-BNP; Complete Time: 13:00 rt 11/26 10:17 Order name: PT-INR; Complete Time: 13:00 rt 11/26 10:17 Order name: Troponin HS; Complete Time: 13:00 rt 11/26 10:17 Order name: Type And Screen rt 11/26 10:17 Order name: Ptt, Activated; Complete Time: 13:00 rt 11/26 10:17 Order name: UAM rt 11/26 10:17 Order name: XRAY Chest (1 view); Complete Time: 12:15 rt 11/26 10:17 Order name: EKG; Complete Time: 10:18 rt 11/26 10:17 Order name: Cardiac monitoring; Complete Time: 12:06 rt 11/26 10:17 Order name: EKG - Nurse/Tech; Complete Time: 12:06 rt 11/26 10:17 Order name: IV Saline Lock; Complete Time: 12:06 rt 11/26 10:17 Order name: Labs collected and sent; Complete Time: 12:06 rt 11/26 10:17 Order name: O2 Per Protocol; Complete Time: 12:06 rt 11/26 10:17 Order name: O2 Sat Monitoring; Complete Time: 12:06 rt 11/26 13:25 Order name: NPO; Complete Time: 13:33 rt 11/26 13:36 Order name: Transfuse rt EC:57 Rate is 60 beats/min. Rhythm is regular, Paced with No ectopy, ST, T waves, conduction rt consistent with ventricularly paced rhythm. QT interval is normal. No Q waves. Administered Medications: 13:34 Drug: Pantoprazole IVP 80 mg Route: IVP; Site: left hand; ph 13:45 Follow up: Response: No adverse reaction ph Disposition Summary: 11/26/22 13:42 Hospitalization Ordered Hospitalization Status: Inpatient Admission rt Provider: Jitendra March rt Location: Telemetry/MedSurg (observation) rt Condition: Fair rt Problem: new rt Symptoms: are unchanged rt Bed/Room Type: Standard rt Room Assignment: rt Diagnosis - Symptomatic anemia rt Discharge Instructions: - Discharge Summary Sheet kj1 Forms: - SBAR form kj1 - Medication Reconciliation Form rt - Leadership Thank You Letter rt Critical care time excluding procedures: 15:56 Critical care time: Bedside Care: 30 minutes, Consultation: 10 minutes. Total time: 40 rt minutes Signatures: Dispatcher [employer] Nury Ruvalcaba, RN RN Landen Wooten MD MD rt
[2022-11-26] MEDS ORDERED: PANTOPRAZOLE 40 MG INJ ONE (13:46)
[2022-11-26] MEDS ORDERED: Ringers Lactate 1,000 ML IV ONE (14:05)
[2022-11-26] MEDS ORDERED: propofoL 200 MG/20 ML VIAL IV ONE (15:01)
--- NOTE | 2022-11-26 15:25 | P.HP ---
Certification for Inpatient With expected LOS: >2 Midnights Patient will require the following post-hospital care: None Practitioner: I am a practitioner with admitting privileges, knowledge of patient current condition, hospital course, and medical plan of care. Services: Services provided to patient in accordance with Admission requirements found in Title 42 Section 412.3 of the Code of Federal Regulations Patient History Date of Service: 11/26/22 Reason for admission: weakness, fatigue, drop in H/H History of Present Illness: This is an 82-year-old male presented to the ED with complaints of weakness for the past 2 weeks. Patient reports that his hemoglobin was less than 6 on outpatient labs and was sent to the ED for further evaluation. Patient does report black stool however he is on iron supplements. He denies any acute changes to urine. Patient reports being on Coumadin for mitral valve replacement with INR checked regularly, he is remembering the last INR was supratherapeutic at 4. Upon arrival H&H 6.4/19.4, GI consulted and patient went for a scope. 2 units packed red blood cells ready for transfusion. Patient's past medical history is mitral valve replacements, coronary artery bypass graft, pacemaker placement. ED course PT/INR 43.9\3.99, APTT 51.1, H&H 6.4\19.4, platelets 302, BUN/creatinine 37\1.51, GFR 46, UA pending. Chest x-ray reveals no acute cardiopulmonary process. Patient will be admitted for further treatment of blood loss anemia. Allergies No Known Allergies Allergy (Verified 11/26/22 16:28) Home Medications: Acetaminophen 650 mg PO Q6HP PRN 11/26/22 Aspirin [Aspirin EC] 81 mg PO DAILY 11/26/22 Finasteride 5 mg PO DAILY 11/26/22 Folic Acid 1 mg PO DAILY 11/26/22 Gabapentin 100 mg PO Q8HR 11/26/22 Melatonin 3 mg PO Q24H PRN 11/26/22 Metoprolol Tartrate 25 mg PO Q12H 11/26/22 Polyethylene Glycol 3350 [Miralax] 17 gm PO DAILY 11/26/22 Sennosides 17.2 mg PO Q12HP PRN 11/26/22 Tamsulosin HCl 0.4 mg PO BEDTIME 11/26/22 Thiamine HCl 100 mg PO DAILY 11/26/22 Warfarin Sodium 5 mg PO DAILY 11/26/22 Review of Systems General: Weakness, Other (fatigue) Eyes: Unremarkable ENT: Unremarkable Respiratory: Unremarkable Cardiovascular: Unremarkable Gastrointestinal: Unremarkable Genitourinary: Unremarkable Musculoskeletal: Unremarkable Integumentary: Unremarkable Neurological: Unremarkable Physical Examination - Vital Signs Temperature: 97.1 F Blood Pressure: 95/35 Pulse: 62 Respirations: 18 - Physical Exam General: Alert, In no apparent distress, Oriented x3 HEENT: Atraumatic, Normocephalic, PERRLA Neck: Supple, 2+ carotid pulse no bruit, JVD not distended Respiratory: Clear to auscultation bilaterally, Normal air movement Cardiovascular: No edema, Normal pulses, Regular rate/rhythm, Normal S1 S2 Capillary refill: <2 Seconds Gastrointestinal: Normal bowel sounds, Soft and benign Musculoskeletal: No clubbing, No swelling Integumentary: No rashes Neurological: Normal speech, Normal strength at 5/5 x4 extr - Studies Laboratory Data (last 24 hrs) 11/26/22 11/26/22 11/26/22 11:40 11:40 11:40 WBC 8.20 Hgb 6.4 L Hct 19.4 L Plt Count 302 PT 43.9 H INR 3.99 APTT 51.1 H Sodium 138 Potassium 4.4 BUN 37 H Creatinine 1.51 H Glucose 117 H Magnesium 2.3 Total Bilirubin 0.2 AST 20 ALT 18 Alkaline Phosphatase 72 Assessment and Plan - Plan Assessment and Plan Acute blood loss anemia associated with hypotension -reported Hgb less than 6 outpatient -H/H 6.4/19.4 upon arrival -2 units type and screened -GI consulted and scoped today KARLEE (POA) -cretinine 1.51 -gentle IVF History of CABG History of MVR History of pace maker placement -continue home medications -restart coumadin when appropriate -telemetry DVT ppx: SCD heart healthy diet Full code - Advance Directives Does patient have a Living Will: No Does patient have a Durable POA for Healthcare: No
[2022-11-26 16:44] VITALS: BMI 19.1
[2022-11-26] MEDS ORDERED: NA CHLORIDE 0.9% 250 ML ONE (20:57)
[2022-11-26] MEDS ORDERED: NA CHLORIDE 0.9% 250 ML IV SCH (21:00)
[2022-11-27] MEDS: NA CHLORIDE 0.9% 1,000 ML IV SCH ×2 (04:08→07:00)
[2022-11-27 06:34] LABS: Absolute Lymphocytes (CBC) 0.7 K/uL (0.7-4.9); Hematocrit 22.2 % (39.6-49.0); MCV 84.4 fL (80-100); MPV 8.3 fL (7.6-11.3); Platelets 236 thou/uL (152-406); RBC Red Blood Cell Count 2.64 M/uL (4.33-5.43)
[2022-11-27 06:45] LABS: Magnesium 2.3 mg/dL (1.6-2.4); Phosphorus 3.2 mg/dL (2.5-4.9)
[2022-11-27 10:57] VITALS: BP 131/77; TEMP 97.8; O2SAT 95
[2022-11-27] MEDS ORDERED: ACETAMINOPHEN 325 MG TABLET PO PRN (12:20)
[2022-11-27] MEDS ORDERED: MELATONIN 3 MG TABLET PO PRN (12:20)
[2022-11-27] MEDS ORDERED: SENOSIDES 8.6 MG TAB PO PRN (12:20)
--- NOTE | 2022-11-27 12:23 | P.PN ---
Subjective Date of Service: 11/27/22 Chief Complaint: Severe anemia Patient is 82 years of age admitted with weakness is found to be severely anemic there is no history of GI bleeding melanotic stools or hematemesis he was taking some iron supplements patient is on Coumadin for mitral valve replacement is admitted for blood transfusion he is currently doing well apparently had a subdural hematoma in April Review of Systems Unremarkable General: Weakness Physical Examination - Vital Signs Temperature: 97.8 F Blood Pressure: 131/77 Pulse: 83 Respirations: 19 Pulse Ox (%): 95 - Physical Exam General: Alert, In no apparent distress, Oriented x3 HEENT: Atraumatic Neck: Supple Respiratory: Clear to auscultation bilaterally, Friction rub Cardiovascular: Regular rate/rhythm - Studies Laboratory Data (last 24 hrs) 11/26/22 11/26/22 11:40 11:40 WBC 8.20 Hgb 6.4 L Hct 19.4 L Plt Count 302 Sodium 138 Potassium 4.4 BUN 37 H Creatinine 1.51 H Glucose 117 H Magnesium 2.3 Total Bilirubin 0.2 AST 20 ALT 18 Alkaline Phosphatase 72 Assessment And Plan - Current Problems (Diagnosis) (1) Severe anemia Current Visit: Yes Status: Acute Plan: Patient is 82 years of age admitted with severe anemia and was transfused sure how long has he been anemic for the his INR is also supratherapeutic no history of GI bleed patient was transfused 2 units we will transfuse another unit stable discharge tomorrow patient is hemodynamically stable saturation satisfactory will need to follow-up with his primary care doctor including GI
--- NOTE | 2022-11-27 12:45 | P.DS ---
Admission Date: 11/26/22 Discharge Date: 11/27/22 Disposition: ROUTINE DISCHARGE Discharge Condition: FAIR Reason for Admission: Severe anemia - Problems (1) Severe anemia Current Visit: Yes Status: Acute Brief History of Present Illness: Patient admitted with severe anemia Hospital Course: There is no evidence of GI bleed transfused 2 unit of packed red blood cells and has been instructed to follow-up with the primary care doctor to have his blood count checked in addition his INR was very elevated I reduce the dose to 3 mg cautioned him and advised him again to have someone check his PT/INR at least 1 week and adjust the dose prior to discharge patient was doing well see my progress note Vital Signs/Physical Exam: Temp Pulse Resp BP Pulse Ox 97.8 F 83 19 131/77 95 11/27/22 12:23 11/27/22 12:23 11/27/22 12:23 11/27/22 12:23 11/27/22 12:23 Laboratory Data at Discharge: WBC 6.70 thou/uL (4.3-10.9) 11/27/22 06:13 Hgb 7.7 g/dL (13.6-17.9) L D 11/27/22 06:13 Hct 22.2 % (39.6-49.0) L 11/27/22 06:13 Plt Count 236 thou/uL (152-406) 11/27/22 06:13 PT 43.9 SECONDS (9.5-12.5) H 11/26/22 11:40 INR 3.99 11/26/22 11:40 APTT 51.1 SECONDS (24.3-36.9) H 11/26/22 11:40 Sodium 140 mEq/L (136-145) 11/27/22 06:13 Potassium 4.0 mEq/L (3.5-5.1) 11/27/22 06:13 BUN 29 mg/dL (7-18) H 11/27/22 06:13 Creatinine 1.23 mg/dL (0.70-1.30) 11/27/22 06:13 Glucose 88 mg/dL (74-106) 11/27/22 06:13 Phosphorus 3.2 mg/dL (2.5-4.9) 11/27/22 06:13 Magnesium 2.3 mg/dL (1.6-2.4) 11/27/22 06:13 Total Bilirubin 0.2 mg/dL (0.2-1.0) 11/26/22 11:40 AST 20 U/L (15-37) 11/26/22 11:40 ALT 18 U/L (16-61) 11/26/22 11:40 Alkaline Phosphatase 72 U/L (45-117) 11/26/22 11:40 Home Medications: Acetaminophen 650 mg PO Q6HP PRN 11/26/22 Finasteride 5 mg PO DAILY 11/26/22 Folic Acid 1 mg PO DAILY 11/26/22 Gabapentin 100 mg PO Q8HR 11/26/22 Melatonin 3 mg PO Q24H PRN 11/26/22 Metoprolol Tartrate 25 mg PO Q12H 11/26/22 Polyethylene Glycol 3350 [Miralax] 17 gm PO DAILY 11/26/22 Sennosides 17.2 mg PO Q12HP PRN 11/26/22 Tamsulosin HCl 0.4 mg PO BEDTIME 11/26/22 Thiamine HCl 100 mg PO DAILY 11/26/22 Warfarin Sodium 3 mg PO DAILY 30 Days #30 tab 11/27/22 New Medications: Warfarin Sodium 3 mg PO DAILY 30 Days #30 tab Physician Discharge Instructions: Patient to follow-up with a primary care contact a primary critical care nurse will need to have PT/INR done in 2 weeks to check the status. Advised to stop his aspirin his blood count again in 2 weeks Please call in a prescription for warfarin Diet: Regular Activity: Ad vinod Followup: NONE,NONE [Primary Care Provider] -
[2022-11-27] MEDS ORDERED: METOPROLOL TAR 25 MG TAB PO SCH (13:00)
[2022-11-27] MEDS ORDERED: GABAPENTIN 100 MG CAP PO SCH (14:00)
[2022-11-27 14:13] LABS: SARS-CoV-2 Antigen Rapid Res Negative (Negative)
--- NOTE | 2022-11-27 16:36 | EKG ---
Test Date: 2022-11-26 Test Time: 11:32:12 Explosive Man: WAQAR MEASUREMENT RESULTS: Intervals: Rate: 60 [place]: 154 QRSD: 126 QT: 474 QTc: 474 [place]: P: 52 NJ: 154 QRS: -80 T: 75 INTERPRETIVE STATEMENTS: Atrial-sensed ventricular-paced rhythm Abnormal ECG No previous ECG available for comparison Electronically Signed On 11-27-22 16:32:25 CDT by Jerry De Los Santos
[2022-11-27] MEDS ORDERED: TAMSULOSIN 0.4 MG SR CAP PO SCH (21:00)
[2022-11-28] MEDS ORDERED: THIAMINE HCL 100 MG TABLET PO SCH (09:00)
[2022-11-28] MEDS ORDERED: FINASTERIDE 5 MG TAB PO SCH (09:00)
[2022-11-28] MEDS ORDERED: WARFARIN SODIUM 5 MG TAB PO SCH (09:00)
[2022-11-28] MEDS ORDERED: FOLIC ACID 1 MG TABLET PO SCH (09:00)
[2022-11-28] MEDS ORDERED: POLYETHYL GLY 3350 17 GM/DOSE PO SCH (09:00)
== END 2022-11-27 14:57 | disposition home or self-care (01) | DRG 392 ==
LOC: ER 10:11 → ERHOLD 15:16 → 2ND 16:32
PROVIDERS: ADMIT Internal Medicine Sleep Medicine; ATTEND Internal Medicine Sleep Medicine
PROC: 30233N1 Transfusion of Nonautologous Red Blood Cells into Peripheral Vein, Percutaneous Approach (ICD-10-PCS; 2022-11-26)
PROC: 0DJ08ZZ Inspection of Upper Intestinal Tract, Via Natural or Artificial Opening Endoscopic (ICD-10-PCS; principal; 2022-11-26 14:00)
DX: K29.70 Gastritis, unspecified, without bleeding (principal); D62 Acute posthemorrhagic anemia; N17.9 Acute kidney failure, unspecified; K44.9 Diaphragmatic hernia without obstruction or gangrene; K29.80 Duodenitis without bleeding; I95.9 Hypotension, unspecified; I25.10 Atherosclerotic heart disease of native coronary artery without angina pectoris; Z95.1 Presence of aortocoronary bypass graft; Z95.0 Presence of cardiac pacemaker; Z79.82 Long term (current) use of aspirin; Z79.01 Long term (current) use of anticoagulants; Z79.899 Other long term (current) drug therapy; Z20.822 Contact with and (suspected) exposure to COVID-19
CPT/HCPCS: 36415; 36430; 71045; 80048; 80076; 83735; 83880; 84100; 84484; 85025; 85610; 85730; 86850; 86900; 86901; 86920; 87811; 93005; 96374; 99285; C9113; J2704; J7030; J7050; J7120; P9016

== ENCOUNTER 2023-06-25 10:22 | Emergency (ER) | payer OTHER ==
[2023-06-25 10:57] LABS: Absolute Eosinophils 0.2 K/uL (0-0.5); Absolute Lymphocytes (CBC) 0.5 K/uL (0.7-4.9); Absolute Monocytes 0.4 K/uL (0.1-1.3); Basophils % 0.5 % (0-1.3); Eosinophils % 3.4 % (0-4.4); Hemoglobin 6.3 g/dL (13.6-17.9); Lymphocytes % 6.6 % (15.3-44.8); MCH 23.6 pg (27.0-35.0); MCHC 31.7 g/dL (32.0-36.0); MCV 74.4 fL (80-100); MPV 7.9 fL (7.6-11.3); Monocytes % 6.2 % (3.3-12.3); Neutrophils % 83.3 % (41.7-73.7); Platelets 318 thou/uL (152-406); RBC Red Blood Cell Count 2.69 M/uL (4.33-5.43)
[2023-06-25 11:08] LABS: PT Prothrombin Time 42.7 SECONDS (9.5-12.5); PTT, Activated Partial Thromb 45.6 SECONDS (24.3-36.9); Protime INR 4.04
--- NOTE | 2023-06-25 11:16 | RAD REPORT ---
EXAM DESCRIPTION: RAD - Chest Single View - 06/25/2023 11:02 am CLINICAL HISTORY: anemia COMPARISON: Chest Single View dated 11/26/2022 FINDINGS: Lines: Left subclavian approach biventricular pacemaker/ICD. Lungs: No evidence of edema or pneumonia. Pleural: No significant pleural effusions or pneumothorax. Cardiac: The heart size is within normal limits. Valve prosthesis. Mediastinum: Within normal limits. Bones: No acute fractures. Other: Surgical clips at the right upper chest wall. IMPRESSION: No acute cardiopulmonary disease.
[2023-06-25 11:23] LABS: Albumin 3.3 g/dL (3.4-5.0); Bilirubin Total 0.2 mg/dL (0.2-1.0); Globulin 3.4 g/dL (2.3-3.5); Protein, Total 6.7 g/dL (6.4-8.2); Troponin High Sensitivity 8.3 pg/mL (<58.9)
--- NOTE | 2023-06-25 11:51 | RAD REPORT ---
EXAM DESCRIPTION: CTAbdomen Pelvis W Contrast - 06/25/2023 11:34 am CLINICAL HISTORY: anemia COMPARISON: No comparisons TECHNIQUE: CT of the abdomen and pelvis was performed with IV contrast. All CT scans are performed using dose optimization technique as appropriate and may include automated exposure control or mA/KV adjustment according to patient size. FINDINGS: Lower chest: 7 mm left lower lobe pulmonary nodule. Descending thoracic aortic dissection. Pacemaker leads . Sternotomy. Liver: No acute abnormality or suspicious lesions. Biliary: No biliary ductal dilatation. Stomach: No significant focal abnormality. Duodenum: No significant focal abnormality. Pancreas: No significant abnormality. Spleen: No significant abnormality. Adrenal: No suspicious lesions. Kidney/ureter: No hydronephrosis. No renal calculi. Left lower pole renal cyst. Retroperitoneum: No retroperitoneal adenopathy. 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 A dissection exte nding from the thoracic aorta and extends into the left common iliac and proximal left external iliac artery. The left renal artery and left internal iliac artery likely arise from the false lumen. The other major branches likely arise from the true lumen. Heavily calcified abdominal aorta. Bowel: Diverticulosis without diverticulitis. No bowel obstruction. Moderate stool present.. Peritoneum: No ascites or free air. Vascular access changes in the right inguinal region. Bladder: Circumferential bladder wall thickening which may be related to chronic bladder outlet obstr uction. A left-sided bladder diverticulum is noted. Reproductive: No adnexal masses. Bones: No acute fracture. Tarlov cysts in the sacrum. Multilevel degenerative changes are present in the spine. Other: n/a IMPRESSION: Aortic dissection extending from the descending thoracic aorta into the abdominal aorta, left common iliac artery, and proximal left external iliac artery appears chronic. The infrarenal ab dominal aorta is aneurysmal measuring 4.2 cm, also presumably chronic. Correlation with outside imagi ng would be helpful. A 4.2 cm abdominal aortic aneurysm should have follow-up imaging every 12 months . 7 mm left lower lobe pulmonary nodule. Per Fleischner criteria, chest CT is recommended at 6-12 month s.
[2023-06-25] MEDS ORDERED: NA CHLORIDE 0.9% 250 ML ONE (12:46)
--- NOTE | 2023-06-25 17:15 | EDPHYS ---
Physician Documentation [facility] Name: Ehsan Ayala Age: 83 yrs Sex: Male : 1940 Arrival Date: 06/25/2023 Time: 10: Bed 2 Private MD: ED Physician Collins March HPI: 06/24 11:22 This 83 yrs old Male presents to ER via EMS with complaints of Abnormal Lab Results. rn 11:22 [facility]. Patient denies any pain. No rn bleeding. No blood in stool. No black stool. Patient on Coumadin for artificial heart valve. Patient reports decreased exercise tolerance over the last month.. Onset: The symptoms/episode began/occurred at an unknown time. Severity of symptoms: At their worst the symptoms were moderate in the emergency department the symptoms are unchanged. The patient has experienced a previous episode. The patient has not recently seen a physician. Historical: - Allergies: 10: No Known Allergies; rs5 - PMHx: 10: Hypercholesterolemia; Hypertensive disorder; UTI; fracture of sacrum; acute kidney rs5 failure; - PSHx: 10: Heart-valve replacement; Pacemaker placement; rs5 - Immunization history:: Adult Immunizations up to date. - Infectious Disease History:: Denies. - Social history:: Smoking status: Patient/guardian denies using tobacco. - Family history:: not pertinent. - Hospitalizations: : No recent hospitalization is reported. ROS: 11:22 Constitutional: Negative for fever, chills, and weight loss, Cardiovascular: Negative rn for chest pain, palpitations, and edema, Respiratory: Negative for shortness of breath, cough, wheezing, and pleuritic chest pain, Abdomen/GI: Negative for abdominal pain, nausea, vomiting, diarrhea, and constipation, : Negative for injury, bleeding, discharge, and swelling, MS/Extremity: Negative for injury and deformity, Skin: Negative for injury, rash, and discoloration, Neuro: Negative for headache, weakness, numbness, tingling, and seizure, Exam: 11:22 Constitutional: This is a well developed, well nourished patient who is awake, alert, rn and in no acute distress. Pale Head/Face: Normocephalic, atraumatic. Eyes: Pale conjunctiva Cardiovascular: Regular rate and rhythm. No pulse deficits. Respiratory: No increased work of breathing, no retractions or nasal flaring. Abdomen/GI: Soft, nontender. No masses. Rectal exam normal light brown stool. No melena or gross blood. MS/ Extremity: Pulses equal, no cyanosis. Neuro: Awake and alert, GCS 15 Vital Signs: 10:25 BP 137 / 62; Pulse 91; Resp 18; Temp 97.8(O); Pulse Ox 98% on R/A; rs5 15:25 BP 101 / 48; Pulse 61; Resp 16; Temp 98.3; Pulse Ox 97% on R/A; iw 15:39 BP 112 / 68; Pulse 60; Resp 16; Temp 98.1(O); Pulse Ox 98% on R/A; iw 21:23 BP 134 / 62; Pulse 68; Resp 18; Temp 97.9(TE); Pulse Ox 95% on R/A; Pain 0/10; tm6 21:23 Pain Scale: Adult tm6 MDM: 10:41 Patient medically screened. rn 12:08 ED course: CT abdomen shows chronic aortic dissection, heavily calcified. Patient rn without abdominal or back pain. Family now here for more story, states had known aortic dissection early , had surgery to repair and "everything was fixed ". Given this new information, joint decision made that there is no need for emergent transfer or urgent procedure. Story still seems like chronic slow microcytic anemia given symptomatic for the last month or so. Will transfuse and anticipate discharge home after transfusion.. 17:13 Differential Diagnosis Anemia, microcytic anemia, GI bleed. Data reviewed: vital signs, rn nurses notes, lab test result(s), radiologic studies, CT scan, and as a result, I will discharge patient. Counseling: I had a detailed discussion with the patient and/or guardian regarding the historical points, exam findings, and any diagnostic results supporting the discharge/admit diagnosis, lab results, radiology results, the need for outpatient follow up, to return to the emergency department if symptoms worsen or persist or if there are any questions or concerns that arise at home. Special discussion: I discussed with the patient/guardian in detail that at this point there is no indication for admission to the hospital. It is understood, however, that if the symptoms persist or worsen the patient needs to return immediately for re-evaluation. ED course: Patient feels much better after 2 units transfusion. Stable vital signs. Will discharge back home.. 06/24 10:42 Order name: Type And Screen rn 06/24 10:42 Order name: CBC with Diff; Complete Time: 11:24 rn 06/24 10:42 Order name: CMP; Complete Time: 11:24 rn 06/24 10:42 Order name: Lipase; Complete Time: 11:24 rn 06/24 10:42 Order name: Protime (+inr); Complete Time: 11:24 rn 06/24 10:42 Order name: Ptt, Activated; Complete Time: 11: rn 06/24 10:42 Order name: Lactate w/ 2H reflex if indic.; Complete Time: 11:24 rn 06/24 10:42 Order name: Basic Metabolic Panel 06/24 10:42 Order name: Troponin HS; Complete Time: 11: 06/24 11:14 Order name: CREATININE WHOLE BLOOD; Complete Time: 11:24 [facility] 06/24 11:53 Order name: Packed RBC Leukored [facility] 06/24 10:42 Order name: CT Abd/Pelvis - IV Contrast Only; Complete Time: 11: 06/24 10:42 Order name: XRAY Chest (1 view); Complete Time: 11:24 rn 06/24 10:42 Order name: EKG; Complete Time: 10:43 rn 06/24 10:42 Order name: IV Saline Lock; Complete Time: 10:53 06/24 10:42 Order name: Labs collected and sent; Complete Time: 10:53 06/24 10:42 Order name: Cardiac monitoring; Complete Time: 10:51 rn 06/24 10:42 Order name: EKG - Nurse/Tech; Complete Time: 10:51 rn 06/24 10:42 Order name: O2 Per Protocol; Complete Time: 10:51 rn 06/24 10:42 Order name: O2 Sat Monitoring; Complete Time: 10: rn 06/24 12:38 Order name: Transfuse; Complete Time: 14:06 rn Administered Medications: No medications were administered Disposition Summary: 06/25/23 17:15 Discharge Ordered Notes: Location: Home rn Problem: chronic rn Symptoms: have improved rn Condition: Stable rn Diagnosis - Anemia, unspecified rn Followup: rn - With: Private Physician - When: As needed - Reason: Recheck today's complaints, Re-evaluation by your physician Discharge Instructions: - Discharge Summary Sheet rn - Anemia rn - Blood Transfusion, Adult rn Forms: - Medication Reconciliation Form rn - Thank You Letter rn - Antibiotic healthcare administration intern - Prescription Opioid Use rn - Patient Portal Instructions rn - Leadership Thank You Letter rn Signatures: Dispatcher [employer] Collins Perez MD MD rn Sotelo, Ricky, RN RN rs5 Corrections: (The following items were deleted from the chart) 10:38 10:29 PSHx: acute kidney failure; rs5 rs5
--- NOTE | 2023-06-25 17:15 | ER ---
Nurse's Notes [facility] Name: Ehsan Ayala Age: 83 yrs Sex: Male : 1940 Arrival Date: 06/25/2023 Time: 10:22 Bed 2 Private MD: Diagnosis: Anemia, unspecified Presentation: 06/24 10:25 Chief complaint: EMS states: [facility] toned out EMS for hemoglobin level results of rs5 5.7. Coronavirus screen: At this time, the client does not indicate any symptoms associated with coronavirus-19. Ebola Screen: No symptoms or risks identified at this time. Initial Sepsis Screen: Does the patient meet any 2 criteria? No. Patient's initial sepsis screen is negative. Does the patient have a suspected source of infection? No. Patient's initial sepsis screen is negative. Risk Assessment: Do you want to hurt yourself or someone else? Patient reports no desire to harm self or others. Onset of symptoms was June 25, 2023. 10:25 Method Of Arrival: EMS: [facility] rs5 10:25 Acuity: CARLOS 3 rs5 Historical: - Allergies: 10:29 No Known Allergies; rs5 - PMHx: 10:29 Hypercholesterolemia; Hypertensive disorder; UTI; fracture of sacrum; acute kidney rs5 failure; - PSHx: 10:29 Heart-valve replacement; Pacemaker placement; rs5 - Immunization history:: Adult Immunizations up to date. - Infectious Disease History:: Denies. - Social history:: Smoking status: Patient/guardian denies using tobacco. - Family history:: not pertinent. - Hospitalizations: : No recent hospitalization is reported. Screenin:38 [facility] ED Fall Risk Assessment (Adult) History of falling in the last 3 months, rs5 including since admission No falls in past 3 months (0 pts) Confusion or Disorientation No (0 pts) Intoxicated or Sedated No (0 pts) Impaired Gait No (0 pts) Mobility Assist Device Used No (0 pt) Altered Elimination No (0 pt) Score/Fall Risk Level 0 - 2 = Low Risk Oriented to surroundings, Maintained a safe environment. Abuse screen: Denies threats or abuse. Nutritional screening: No deficits noted. Tuberculosis screening: No symptoms or risk factors identified. Assessment: 10:26 General: Appears in no apparent distress. comfortable, Behavior is calm, cooperative. rs5 Pain: Denies pain. Neuro: Level of Consciousness is awake, alert, obeys commands, Oriented to person, place, time, situation. Cardiovascular: Patient's skin is warm and dry. Rhythm is regular. Respiratory: Airway is patent Respiratory effort is even, unlabored, Respiratory pattern is regular, symmetrical. GI: Abdomen is round non-distended, Abd is soft and non tender X 4 quads. : No signs and/or symptoms were reported regarding the genitourinary system. EENT: No signs and/or symptoms were reported regarding the EENT system. Derm: Skin is intact, Skin is dry, Skin is normal, Skin temperature is warm. Musculoskeletal: Range of motion: intact in all extremities. 11:31 Reassessment: Patient and/or family updated on plan of care and expected duration. Pain rs5 level reassessed. Patient is alert, oriented x 3, equal unlabored respirations, skin warm/dry/pink. 13:05 Reassessment: 1st unit PRBC started. iw 13:48 Reassessment: Patient appears in no apparent distress at this time. Patient and/or iw family updated on plan of care and expected duration. Pain level reassessed. Patient is alert, oriented x 3, equal unlabored respirations, skin warm/dry/pink. 15:24 Reassessment: 2nd unit PRBC started. iw 15:25 Reassessment: Patient appears in no apparent distress at this time. Patient and/or iw family updated on plan of care and expected duration. Pain level reassessed. Patient is alert, oriented x 3, equal unlabored respirations, skin warm/dry/pink. 17:16 Reassessment: report called to Nellie at [facility], will see about arranging iw transport back to facility. 21:23 Reassessment: Patient appears in no apparent distress at this time. No changes from tm6 previously documented assessment. Vital Signs: 10:25 BP 137 / 62; Pulse 91; Resp 18; Temp 97.8(O); Pulse Ox 98% on R/A; rs5 15:25 BP 101 / 48; Pulse 61; Resp 16; Temp 98.3; Pulse Ox 97% on R/A; iw 15:39 BP 112 / 68; Pulse 60; Resp 16; Temp 98.1(O); Pulse Ox 98% on R/A; iw 21:23 BP 134 / 62; Pulse 68; Resp 18; Temp 97.9(TE); Pulse Ox 95% on R/A; Pain 0/10; tm6 21:23 Pain Scale: Adult tm6 ED Course: 10:25 Patient arrived in ED. eb 10:25 Wade Garcia, RN is Primary Nurse. rs5 10:26 Patient has correct armband on for positive identification. Placed in gown. Bed in low rs5 position. Call light in reach. Side rails up X2. 10:26 Arm band placed on. tm6 10:29 Triage completed. rs5 10:35 Inserted saline lock: 20 gauge in left antecubital area, using aseptic technique. Blood rs5 collected. 10:41 Collins March MD is Attending Physician. rn 10:47 Client placed on continuous cardiac and pulse oximetry monitoring. NIBP monitoring hb applied. clinical research monitor on. Pulse ox on. NIBP on. 10:53 Initial lab(s) drawn, by me, sent to lab. EKG done, by ED staff. Inserted saline lock: bc6 20 gauge in left antecubital area, using aseptic technique. Blood collected. 10:54 No provider procedures requiring assistance completed. rs5 11:04 XRAY Chest (1 view) In Process Unspecified. EDMS 11:36 CT Abd/Pelvis - IV Contrast Only In Process Unspecified. EDMS 11:57 Primary Nurse role handed off by Wade Garcia, RN iw 11:57 Giuliana Souza, RN is Primary Nurse. iw 12:50 Consent for blood and/or blood product transfusion explained by staff, explained by iw physician, signed by patient. 19:00 Provided Education on: use of call frausto. tm6 20:02 Cleaned of incontinence. Linen changed. kmf 20:03 Door closed. Noise minimized. Lights dimmed. Warm blanket given. kmf 21:25 IV discontinued, intact, bleeding controlled, No redness/swelling at site. Pressure tm6 dressing applied. Administered Medications: No medications were administered Medication: 10:38 VIS not applicable for this client. rs5 15:20 Blood products: PRBCs X 2 units given. iw Outcome: 17:15 Discharge ordered by . rn 21:23 Discharged to correction. Report called to [facility] tm6 21:23 Condition: stable 21:23 Discharge instructions given to patient, Instructed on discharge instructions, follow up and referral plans. Demonstrated understanding of instructions, follow-up care, 21:26 Patient left the ED. tm6 Signatures: Dispatcher [employer] Giuliana Harris, Collins Chung RN, MD MD rn Baxter, Heather, RN RN hb Botello, Elizabeth eb Sotelo, Ricky, RN RN rs5 Sagrario Diaz [facility] Analia Price [facility] Clay Montoya RN RN tm6 Corrections: (The following items were deleted from the chart) 10:38 10:29 PSHx: acute kidney failure; rs5 rs5
[2023-06-26 04:10] VITALS: BP 134/62; TEMP 97.9; O2SAT 95
== END 2023-06-25 21:26 | disposition home or self-care (01) ==
LOC: ER 10:22
DX: D64.9 Anemia, unspecified (principal); I10 Essential (primary) hypertension; Z95.0 Presence of cardiac pacemaker; Z95.2 Presence of prosthetic heart valve
CPT/HCPCS: 85025; 36415; 86900; 86850; 85610; 82565; 86901; 83605; 85730; 86920 ×2; 84484; 83690; 80053; 74177; 71045; 36430; 99285; Q9967; P9016 ×2; J7050; 93005

== ENCOUNTER 2023-10-27 20:29 | Inpatient (IN) | payer OTHER ==
[2023-10-27 20:56] LABS: Absolute Eosinophils 0.1 K/uL (0-0.5); Absolute Lymphocytes (CBC) 0.6 K/uL (0.7-4.9); Absolute Monocytes 1.1 K/uL (0.1-1.3); Absolute Neutrophil 8.4 K/uL (1.8-8.0); Basophils % 0.3 % (0-1.3); Eosinophils % 0.8 % (0-4.4); Hematocrit 23.2 % (39.6-49.0); Hemoglobin 7.3 g/dL (13.6-17.9); Lymphocytes % 5.4 % (15.3-44.8); MCH 24.3 pg (27.0-35.0); MCHC 31.6 g/dL (32.0-36.0); MCV 76.9 fL (80-100); MPV 7.8 fL (7.6-11.3); Monocytes % 10.4 % (3.3-12.3); Neutrophils % 83.1 % (41.7-73.7); Platelets 377 thou/uL (152-406); RBC Red Blood Cell Count 3.02 M/uL (4.33-5.43)
[2023-10-27 21:15] LABS: ALT/SGPT 24 U/L (16-61); AST/SGOT 17 U/L (15-37); Albumin 2.4 g/dL (3.4-5.0); Albumin/Globulin Ratio 0.7 (1.1-1.8); Alkaline Phosphatase 65 U/L (45-117); Anion Gap 12.2 mEq/L (5.0-15.0); BUN Blood Urea Nitrogen 34 mg/dL (7-18); Bicarbonate 26 mEq/L (21-32); Bilirubin Total 0.2 mg/dL (0.2-1.0); Globulin 3.4 g/dL (2.3-3.5); Glomerular Filtration Rate 57 ml/min (=/>90); Glucose Level 93 mg/dL (74-106); Magnesium 2.5 mg/dL (1.6-2.4); NT PRO-BNP 1504 pg/mL (<450); Potassium 4.2 mEq/L (3.5-5.1); Protein, Total 5.8 g/dL (6.4-8.2); Sodium Level 138 mEq/L (136-145); Troponin High Sensitivity 9.2 pg/mL (<58.9)
[2023-10-27 21:25] LABS: PT Prothrombin Time 171.6 SECONDS (9.4-12.5)
[2023-10-27 21:27] LABS: Protime INR 16.63
[2023-10-27] MEDS ORDERED: VITAMIN K (ADULT) 10 MG/ML ONE (21:38)
[2023-10-27] MEDS ORDERED: DIPHENHYDRAMINE 25 MG TAB/CAP ONE (21:51)
[2023-10-27] MEDS ORDERED: ACETAMINOPHEN 500 MG TAB ONE (21:51)
[2023-10-27 21:58] LABS: Bilirubin Direct < 0.2 mg/dL (0-0.2)
--- NOTE | 2023-10-27 22:16 | RAD REPORT ---
EXAM DESCRIPTION: Katie Single View10/27/2023 8:58 pm CLINICAL HISTORY: Chest pain COMPARISON: June 2023 CT FINDINGS: 9 millimeter left lower lobe nodule. On the prior CT it measured approximately 8 millimete rs Right lung appears clear of infiltrate Heart is mildly enlarged. Postsurgical changes involve the chest. Pacemaker leads place IMPRESSION: 9 millimeter left lower lobe nodule equivocally mildly enlarged prior exam. CT chest is recommended further evaluation
[2023-10-27] MEDS ORDERED: NA CHLORIDE 0.9% 500 ML ONE (23:10)
--- NOTE | 2023-10-28 01:55 | EDPHYS ---
Physician Documentation [facility] Name: Ehsan Ayala Age: 83 yrs Sex: Male : 1940 Arrival Date: 10/27/2023 Time: 20:29 Bed 14 Private MD: ED Physician Bernard Dawson HPI: 10/26 20:35 This 83 yrs old Male presents to ER via Unassigned with complaints of sp4 Abnormal Lab Results. 21:15 Patient's medications include acetaminophen as needed, famotidine 20 mg daily, iron sp4 sulfate 325 mg daily, finasteride 5 mg daily, folic acid 400 mg daily, guaifenesin 100 mg as needed, albuterol/ipratropium as needed, Levaquin 500 mg daily, until 10/28/2023. Loratadine 10 mg p.o. daily, melatonin 3 mg p.o. nightly, metoprolol 25 mg twice daily, multivitamin daily, tamsulosin 0.4 mg daily, warfarin 3.5 mg at bedtime. History of heart valve replacement. Also send and MiraLAX as needed.. 10/27 23:49 This 83-year-old male presents with abnormal lab values from a local alf. sp4 Patient was reported to have hemoglobin of 7. Also INR was greater than 10. Patient takes Coumadin for history of aortic valve repair. Patient does report fatigue and generalized weakness but denies any other symptoms, denies rectal bleeding.. Historical: - Allergies: 10/26 20:40 No Known Allergies; me1 - PMHx: 20:40 Acute Kidney Failure; fracture of sacrum; Hypercholesterolemia; Hypertensive disorder; me1 UTI; - PSHx: 20:40 Heart-valve replacement; Pacemaker placement; me1 - Immunization history:: Adult Immunizations up to date. - Infectious Disease History:: Denies. - Social history:: Smoking status: Patient/guardian denies using tobacco, but has a distant history of tobacco abuse. - Family history:: not pertinent. ROS: 10/27 23:49 Constitutional: Negative for fever, chills, and weight loss, positive for generalized sp4 weakness fatigue and feeling unwell. All other systems are negative, Exam: 23:49 Constitutional: This is a well developed, well nourished patient who is awake, alert, sp4 and in no acute distress. Patient is ill-appearing pale looking male nontoxic-appearing Head/Face: Normocephalic, atraumatic. Eyes: Pupils equal round and reactive to light, extra-ocular motions intact. Lids and lashes normal. Conjunctiva and sclera are not injected. Cornea within normal limits. Periorbital areas with no swelling, redness, or edema. ENT: Nares patent. No nasal discharge, no septal abnormalities noted. Tympanic membranes are normal and external auditory canals are clear. Oropharynx with no redness, swelling, or masses, exudates, or evidence of obstruction, uvula midline. Mucous membranes moist. Neck: Trachea midline, no thyromegaly or masses palpated, and no cervical lymphadenopathy. Supple, full range of motion without nuchal rigidity, or vertebral point tenderness. Chest/axilla: Normal chest wall appearance and motion. Nontender with no deformity. No lesions are appreciated. Cardiovascular: Regular rate and rhythm with a normal S1 and S2. No gallops, murmurs, or rubs. Normal PMI, no JVD. No pulse deficits. Respiratory: Lungs have equal breath sounds bilaterally, clear to auscultation and percussion. No rales, rhonchi or wheezes noted. No increased work of breathing, no retractions or nasal flaring. Abdomen/GI: Soft, with normal bowel sounds. No distension or tympany. No guarding or rebound. No evidence of tenderness throughout. Back: No spinal tenderness. No costovertebral tenderness. Male : Normal genitalia with no discharge or lesions. Rectal exam revealed no blood or melena. Skin: Warm, dry with normal turgor. Normal color with no rashes, no lesions, and no evidence of cellulitis. MS/ Extremity: Pulses equal, no cyanosis. Neurovascular intact. Full, normal range of motion. Neuro: Awake and alert, GCS 15, oriented to person, place, time, and situation. Cranial nerves II-XII grossly intact. Motor strength 5/5 in all extremities. Sensory grossly intact. Psych: Awake, alert, with orientation to person, place and time. Behavior, mood, and affect are within normal limits Vital Signs: 10/26 20:39 Weight 63.5 kg; Height 6 ft. 0 in. ; Pain 0/10; me1 20:41 BP 112 / 84; Pulse 60; Resp 14; Temp 98.3; Pulse Ox 99% on 4 lpm NC; me1 21:00 BP 138 / 59; Pulse 64; Resp 16; Pulse Ox 99% on 4 lpm NC; me1 22:00 BP 106 / 59; Pulse 60; Resp 16; Pulse Ox 100% on 4 lpm NC; nv1 10/27 06:59 al5 07:18 BP 107 / 65; Pulse 61; Resp 16 S; Pulse Ox 100% on 4 lpm NC; 6 10/26 20:39 Body Mass Index 18.99 (63.50 kg, 182.88 cm) [facility] [place] 10/26 20:39 Pain Scale: Adult nv1 06:59 see transfusion flow sheets for vitals al5 [place] Coma Score: 23:49 Eye Response: spontaneous(4). Motor Response: obeys commands(6). Verbal Response: sp4 oriented(5). Total: 15. MDM: 10/26 20:36 Patient medically screened. 4 10/27 23:49 Differential Diagnosis altered mental status, sepsis, flu. Data reviewed: vital signs, sp4 nurses notes, old medical records, lab test result(s), EKG. Consideration of Admission/Observation Patient was admitted/placed on observation. Escalation of care including admission/observation considered. Management of patient was discussed with the following: Hospitalist: Admit team . ED course: 2 units PRBC and 1 unit of plasma ordered in the ER. Vitamin K ordered . Patient stable for admission.. 10/26 20:37 Order name: Basic Metabolic Panel; Complete [facility]: 00:11 [facility] 10/26 20:37 Order name: CBC with Diff; Complete Time: 21:15 [facility] 10/26 20:37 Order name: LFT's; Complete Time: 00:11 4 10/26 20:37 Order name: Magnesium; Complete Time: 00:11 4 10/26 20:37 Order name: NT PRO-BNP; Complete Time: 00:11 4 10/26 20:37 Order name: PT-INR; Complete Time: 00:11 sp4 10/26 20:37 Order name: Troponin HS; Complete Time: 00:11 4 10/26 20:37 Order name: Type And Screen [facility] 10/26 21:37 Order name: Packed RBC Leukored [facility] 10/26 22:36 Order name: Fresh Frozen Plasma [facility] 10/26 20:37 Order name: XRAY Chest (1 view); Complete Time: 00:11 4 10/26 20:37 Order name: Cardiac monitoring; Complete Time: 22:43 sp 10/26 20:37 Order name: EKG - Nurse/Tech; Complete Time: 00:52 4 10/26 20:37 Order name: IV Saline Lock; Complete Time: 20:52 sp4 10/26 20:37 Order name: Labs collected and sent; Complete Time: 20:52 4 10/26 20:37 Order name: O2 Per Protocol; Complete Time: 20:52 sp4 10/26 20:37 Order name: O2 Sat Monitoring; Complete Time: 20:52 [facility] 10/26 21:06 Order name: Misc. Order: Please consent for blood transfusion; Complete Time: 21:20 sp4 Administered Medications: 10/26 21:49 Drug: Phytonadione Sub-Q 10 mg Sub-Q once Route: Sub-Q; Site: abdomen; me1 21:59 Follow up: Response: No adverse reaction me1 21:58 Drug: diphenhydrAMINE PO 25 mg PO once Route: PO; me1 21:59 Follow up: Response: No adverse reaction me1 21:58 Drug: Acetaminophen PO 1000 mg PO once Route: PO; me1 21:59 Follow up: Response: No adverse reaction me1 Disposition Summary: 10/28/23 01:54 Hospitalization Ordered Notes: Hospitalization Status: Inpatient Admission sp4 Provider: Marisol Nowak sp4 Location: Telemetry/[facility] (Inpatient) sp4 Condition: Stable sp4 Problem: new sp4 Symptoms: have improved sp4 Bed/Room Type: Standard sp4 Room Assignment: 417(10/28/23 06:26) kl Diagnosis - Over coagulation, symptomatic anemia, acute coagulopathy secondary to warfarin sp4 Forms: - Medication Reconciliation Form sp4 - SBAR form sp4 - Leadership Thank You Letter sp4 Signatures: Dispatcher [employer] Arlette Omalley RN RN kl Potepalov, Sergey, MD MD sp4 Emilia Lomax RN RN me1 Corrections: (The following items were deleted from the chart) 20:38 20:38 TYPE AND SCREEN+BB.LAB.BRZ ordered. LUTHER EDMS 21:06 PACKED RBC LEUKORED+BB.LAB.BRZ ordered. EDMS EDMS 21:08 ABO/RH typing ordered. EDMS EDMS 21: Antibody Screen ordered. EDMS EDMS 10/27 06:26 01:54 sp4 kl
--- NOTE | 2023-10-28 01:55 | ER ---
Nurse's Notes [facility] Name: Ehsan Ayala Age: 83 yrs Sex: Male : 1940 Arrival Date: 10/27/2023 Time: 20:29 Bed 14 Private MD: Diagnosis: Over coagulation, symptomatic anemia, acute coagulopathy secondary to warfarin Presentation: 10/26 20:39 Chief complaint: EMS states: brought from [facility] after routine labs came back me1 abnormal. Hgb 7.3, INR >10. c/o being lethargic. Patient takes Coumadin. Coronavirus screen: Vaccine status: Patient reports receiving the 2nd dose of the covid vaccine. Ebola Screen: No symptoms or risks identified at this time. Initial Sepsis Screen: Does the patient meet any 2 criteria? No. Patient's initial sepsis screen is negative. Does the patient have a suspected source of infection? No. Patient's initial sepsis screen is negative. Risk Assessment: Do you want to hurt yourself or someone else? Patient reports no desire to harm self or others. Onset of symptoms was October 27, 2023. 20:39 Method Of Arrival: EMS: [facility] ct1 20:39 Acuity: CARLOS 3 me1 Triage Assessment: 20:40 General: Appears comfortable, slender, well groomed, well developed, Behavior is calm, me1 cooperative, appropriate for age. Pain: Denies pain. 20:42 EENT: No signs and/or symptoms were reported regarding the EENT system. Neuro: Level of me1 Consciousness is awake, alert, obeys commands, Oriented to person, place, time, situation, Appropriate for age. Cardiovascular: Patient's skin is warm and dry. Respiratory: Airway is patent Respiratory effort is even, unlabored, Respiratory pattern is regular, symmetrical, Breath sounds with crackles bilaterally. GI: No signs and/or symptoms were reported involving the gastrointestinal system. : No signs and/or symptoms were reported regarding the genitourinary system. Derm: Skin is intact, is healthy with good turgor, Skin is pink, warm \T\ dry. Musculoskeletal: No signs and/or symptoms reported regarding the musculoskeletal system. Historical: - Allergies: 20:40 No Known Allergies; me1 - PMHx: 20:40 Acute Kidney Failure; fracture of sacrum; Hypercholesterolemia; Hypertensive disorder; me1 UTI; - PSHx: 20:40 Heart-valve replacement; Pacemaker placement; me1 - Immunization history:: Adult Immunizations up to date. - Infectious Disease History:: Denies. - Social history:: Smoking status: Patient/guardian denies using tobacco, but has a distant history of tobacco abuse. - Family history:: not pertinent. Screenin:43 [facility] ED Fall Risk Assessment (Adult) History of falling in the last 3 months, me1 including since admission No falls in past 3 months (0 pts) Confusion or Disorientation No (0 pts) Intoxicated or Sedated No (0 pts) Impaired Gait Yes (1 pt) Mobility Assist Device Used Yes (1 pt) Altered Elimination No (0 pt) Score/Fall Risk Level 0 - 2 = Low Risk Maintained a safe environment, Provided non-skid footwear, Hourly rounding (assess needs \T\ fall precautionary measures) done. Abuse screen: Denies threats or abuse. Nutritional screening: No deficits noted. Tuberculosis screening: No symptoms or risk factors identified. Assessment: 20:43 General: See triage assessment. . me1 22:00 Reassessment: Patient appears in no apparent distress at this time. No changes from al5 previously documented assessment. Patient and/or family updated on plan of care and expected duration. Pain level reassessed. Patient is alert, oriented x 3, equal unlabored respirations, skin warm/dry/pink. 23:00 Reassessment: Patient appears in no apparent distress at this time. No changes from al5 previously documented assessment. Patient and/or family updated on plan of care and expected duration. Pain level reassessed. Patient is alert, oriented x 3, equal unlabored respirations, skin warm/dry/pink. 10/27 00:00 Reassessment: Patient appears in no apparent distress at this time. No changes from al5 previously documented assessment. Patient and/or family updated on plan of care and expected duration. Pain level reassessed. Patient is alert, oriented x 3, equal unlabored respirations, skin warm/dry/pink. 01:00 Reassessment: Patient appears in no apparent distress at this time. No changes from al5 previously documented assessment. Patient and/or family updated on plan of care and expected duration. Pain level reassessed. Patient is alert, oriented x 3, equal unlabored respirations, skin warm/dry/pink. 03:00 Reassessment: Patient appears in no apparent distress at this time. No changes from al5 previously documented assessment. Patient and/or family updated on plan of care and expected duration. Pain level reassessed. Patient is alert, oriented x 3, equal unlabored respirations, skin warm/dry/pink. 05:00 Reassessment: Patient appears in no apparent distress at this time. No changes from al5 previously documented assessment. Patient and/or family updated on plan of care and expected duration. Pain level reassessed. Patient is alert, oriented x 3, equal unlabored respirations, skin warm/dry/pink. 07:18 Reassessment: Patient appears in no apparent distress at this time. No changes from kc6 previously documented assessment. Patient and/or family updated on plan of care and expected duration. Pain level reassessed. Patient is alert, oriented x 3, equal unlabored respirations, skin warm/dry/pink. Vital Signs: 10/26 20:39 Weight 63.5 kg; Height 6 ft. 0 in. ; Pain 0/10; me1 20:41 BP 112 / 84; Pulse 60; Resp 14; Temp 98.3; Pulse Ox 99% on 4 lpm NC; me1 21:00 BP 138 / 59; Pulse 64; Resp 16; Pulse Ox 99% on 4 lpm NC; me1 22:00 BP 106 / 59; Pulse 60; Resp 16; Pulse Ox 100% on 4 lpm NC; me1 10/27 06:59 al5 07:18 BP 107 / 65; Pulse 61; Resp 16 S; Pulse Ox 100% on 4 lpm NC; kc6 10/26 20:39 Body Mass Index 18.99 (63.50 kg, 182.88 cm) me1 10/26 20:39 Pain Scale: Adult me1 06:59 see transfusion flow sheets for vitals al5 [place] Coma Score: 23:49 Eye Response: spontaneous(4). Motor Response: obeys commands(6). Verbal Response: sp4 oriented(5). Total: 15. ED Course: 10/26 20:31 Patient arrived in ED. me1 20:35 Bernard Dawson MD is Attending Physician. sp4 20:39 Emilia Lomax RN is Primary Nurse. me1 20:40 Triage completed. me1 20:42 Arm band placed on Patient placed in an exam room. me1 20:43 Patient has correct armband on for positive identification. Bed in low position. Call ct1 light in reach. Side rails up X2. Provided Education on: POC. Verbalized understanding. . Client placed on continuous cardiac and pulse oximetry monitoring. NIBP monitoring applied. Pulse ox on. NIBP on. 20:43 No provider procedures requiring assistance completed. me1 20:52 Basic Metabolic Panel Sent. me1 20:52 CBC with Diff Sent. me1 20:52 LFT's Sent. me1 20:52 Magnesium Sent. me1 20:52 NT PRO-BNP Sent. me1 20:52 PT-INR Sent. me1 20:52 Troponin HS Sent. me1 20:52 Type And Screen Sent. me1 20:52 Initial lab(s) drawn, by ED staff, sent to lab. Inserted saline lock: 22 gauge in left ct1 antecubital area, using aseptic technique. 21:00 XRAY Chest (1 view) In Process Unspecified. EDMS 21:21 Type And Screen Sent. me1 10/27 01:53 Marisol Nowak MD is Hospitalizing Provider. sp4 07:00 Report received from FINA Queen. kc6 07:00 Door closed. Noise minimized. Lights dimmed. Warm blanket given. Pillow given. kc6 07:30 Repositioned patient. Cleaned of incontinence. Linen changed. kc6 07:38 Patient admitted, IV remains in place. kc6 Administered Medications: 10/26 21:49 Drug: Phytonadione Sub-Q 10 mg Sub-Q once Route: Sub-Q; Site: abdomen; me1 21:59 Follow up: Response: No adverse reaction me1 21:58 Drug: diphenhydrAMINE PO 25 mg PO once Route: PO; me1 21:59 Follow up: Response: No adverse reaction me1 21:58 Drug: Acetaminophen PO 1000 mg PO once Route: PO; me1 21:59 Follow up: Response: No adverse reaction me1 Medication: 20:43 VIS not applicable for this client. me1 Outcome: 10/27 01:54 Decision to Hospitalize by Provider. sp4 07:38 Admitted to Med/surg accompanied by tech, via stretcher, room 417, with oxygen, with kc6 chart, 07:38 Condition: stable 07:38 Instructed on the need for admit, 07:38 Patient left the ED. kc6 Signatures: Dispatcher [employer] Siena Mcclain RN RN kc6 Bernard Dawson MD MD sp4 Emilia Lomax RN RN me1 Bernice Cabrera RN RN al5
--- NOTE | 2023-10-28 02:29 | P.HP ---
Certification for Inpatient Patient admitted to: Inpatient With expected LOS: <2 Midnights <Angélica Barry - Last Filed: 10/28/23 06:22> Patient History Date of Service: 10/28/23 Reason for admission: Supratherapeutic INR History of Present Illness: 83 yrs old Male with a past medical history Heart-valve replacement; on Coumadin pacemaker placement; Acute Kidney Failure; fracture of sacrum; Hypercholesterolemia; Hypertensive disorder, UTI presents to the emergency room with abnormal labs. He reports being on Levaquin, and Coumadin, had of adverse drug reaction, with elevated INR. He was treated with fresh frozen plasma, vitamin K 10 mg, Benadryl 25 for supratherapeutic INR., No reported chest pain, alert and oriented 3, no focal deficits, no reported nausea vomiting diarrhea. Plan to admit to [facility] for supratherapeutic INR, symptomatic anemia, acute coagulopathy secondary to warfarin ER evaluation INR was 16.63, repeat coagulation labs in the a.m. Fall precautions., Chest x-ray IMPRESSION: 9 millimeter left lower lobe nodule equivocally mildly enlarged prior recommended further evaluation - Past Medical/Surgical History -: Acute renal failure -: Hyperlipidemia -: Hypertension -: Heart valve replaced on chronic anticoagulation -: Permanent pacemaker -: Fracture of the sacrum -: Heart valve replaced - Social History Alcohol use: No CD- Drugs: No Caffeine use: Yes <Angélica Barry - Last Filed: 10/28/23 06:22> Date of Service: 10/28/23 <Jitendra March - Last Filed: 10/28/23 17:28> Allergies No Known Allergies Allergy (Verified 11/26/22 16:28) Home Medications: Acetaminophen 650 mg PO Q6HP PRN 11/26/22 Finasteride 5 mg PO DAILY 11/26/22 Folic Acid 1 mg PO DAILY 11/26/22 Gabapentin 100 mg PO Q8HR 11/26/22 Melatonin 3 mg PO Q24H PRN 11/26/22 Metoprolol Tartrate 25 mg PO Q12H 11/26/22 Polyethylene Glycol 3350 [Miralax] 17 gm PO DAILY 11/26/22 Sennosides 17.2 mg PO Q12HP PRN 11/26/22 Tamsulosin HCl 0.4 mg PO BEDTIME 11/26/22 Thiamine HCl 100 mg PO DAILY 11/26/22 Warfarin Sodium 3 mg PO DAILY 30 Days #30 tab 11/27/22 Review of Systems 10-point ROS is otherwise unremarkable <Angélica Barry - Last Filed: 10/28/23 06:22> Physical Examination - Physical Exam General: Alert, In no apparent distress, Oriented x3, Other (Pale) HEENT: Atraumatic, Normocephalic, Other (Cavities, broken teeth,) Neck: 2+ carotid pulse no bruit, JVD not distended, Other (O2 2 L) Respiratory: Normal air movement, Diminished Cardiovascular: Normal pulses, Regular rate/rhythm Capillary refill: <2 Seconds Gastrointestinal: Normal bowel sounds, Soft and benign Musculoskeletal: No swelling, No contractures, Other (Moderate generalized weakness) Integumentary: No breakdown, No significant lesion Neurological: Normal speech, Normal strength at 5/5 x4 extr, Cranial nerves 3-12 intact - Studies Laboratory Data (last 24 hrs) 10/27/23 10/27/23 10/27/23 20:42 20:42 20:42 WBC 10.20 Hgb 7.3 L Hct 23.2 L Plt Count 377 PT 171.6 H INR 16.63 H* Sodium 138 Potassium 4.2 BUN 34 H Creatinine 1.26 Glucose 93 Magnesium 2.5 H Total Bilirubin 0.2 AST 17 ALT 24 Alkaline Phosphatase 65 <Angélica Barry - Last Filed: 10/28/23 06:22> - Studies Laboratory Data (last 24 hrs) 10/27/23 10/27/23 10/27/23 20:42 20:42 20:42 WBC 10.20 Hgb 7.3 L Hct 23.2 L Plt Count 377 PT 171.6 H INR 16.63 H* Sodium 138 Potassium 4.2 BUN 34 H Creatinine 1.26 Glucose 93 Magnesium 2.5 H Total Bilirubin 0.2 AST 17 ALT 24 Alkaline Phosphatase 65 <Jitendra March - Last Filed: 10/28/23 17:28> Assessment and Plan - Plan Assessment plan Acute supratherapeutic INR Acute symptomatic anemia Acute over coagulation, symptomatic anemia, acute coagulopathy secondary to warfarin Chronic heart-valve replacement on chronic anticoagulation Coumadin Chronic pacemaker placement ER evaluation INR was 16.63, repeat coagulation labs in the a.m. Fall precautions., He was treated with fresh frozen plasma, vitamin K 10 mg, Benadryl 25 for supratherapeutic INR., Type and cross 2 units, fall precaution presents to the emergency room with abnormal labs. He reports being on Levaquin, and Coumadin, had of adverse drug reaction, with elevated INR. No reported chest pain, no intracranial hemorrhage on CT, no reported nausea vomiting diarrhea. Plan to admit to [facility] for Over coagulation, symptomatic anemia, acute coagulopathy secondary to warfarin ER evaluation INR was 16.63, repeat coagulation labs in the a.m. Fall precautions., Hemoglobin 7.323.2 Left shift, no leukocytosis Acute Kidney Failure Trend kidney function IV fluids fracture of sacrum Hypercholesterolemia Hypertensive disorder UTI Resume appropriate home meds Full code DVT SCDs Diet cardiac Disposition pending hospital course, Discharge Plan: Detention - Advance Directives Does patient have a Living Will: No Does patient have a Durable POA for Healthcare: No - Code Status/Comfort Care Code Status: Full Code Critical Care: No Time Spent Managing Pts Care (In Minutes): 55 <Angélica Barry - Last Filed: 10/28/23 06:22> - Plan Patient seen and examined on rounds this morning denies any bleeding reports needs blood transfusion every ~4 months denies any nausea/vomiting, no pain, no fever/chills. on 4L NC, states he doesn't typically need O2 supplementation wean O2 confirm home meds 2u PRBC ordered, now s/p 1unit at time of my exam in ~7am repeat INR pending suspect levaquin/prednisone alltered metabolism of coumadin patient unable to elaborate why these were recently prescribed. <Jitendra March - Last Filed: 10/28/23 17:28>
[2023-10-28] MEDS ORDERED: ONDANSETRON 4 MG/2 ML VIAL IV PRN (07:53)
[2023-10-28 08:30] LABS: Absolute Eosinophils 0.2 K/uL (0-0.5); Absolute Lymphocytes (CBC) 0.7 K/uL (0.7-4.9); Absolute Monocytes 0.8 K/uL (0.1-1.3); Absolute Neutrophil 6.2 K/uL (1.8-8.0); Basophils % 0.3 % (0-1.3); Hematocrit 23.7 % (39.6-49.0); Hemoglobin 7.6 g/dL (13.6-17.9); Lymphocytes % 8.4 % (15.3-44.8); MCH 25.6 pg (27.0-35.0); MCHC 32.2 g/dL (32.0-36.0); MCV 79.5 fL (80-100); MPV 7.6 fL (7.6-11.3); Monocytes % 10.1 % (3.3-12.3); Neutrophils % 79.2 % (41.7-73.7); Platelets 323 thou/uL (152-406); RBC Red Blood Cell Count 2.99 M/uL (4.33-5.43); Red Cell Distribution Width 19.1 % (12.1-15.2)
[2023-10-28 08:44] LABS: Albumin 2.4 g/dL (3.4-5.0); Albumin/Globulin Ratio 0.8 (1.1-1.8); Anion Gap 5.8 mEq/L (5.0-15.0); Bilirubin Total 0.4 mg/dL (0.2-1.0); Magnesium 2.3 mg/dL (1.6-2.4); Potassium 3.8 mEq/L (3.5-5.1); Protein, Total 5.4 g/dL (6.4-8.2)
[2023-10-28 08:55] LABS: Blood Morphology Comment NOTED (NOT SEEN); Differential Total Cells Count 100; Eosinophils 2 % (0-3); Hypochromasia 1+; Lymphocytes 4 % (15-42); Monocytes 5 % (0-10); Platelet Estimate ADEQ; Polychromasia 1+; Segmented Neutrophils 89 % (40-80); Toxic Granulation 1+
[2023-10-28 09:38] LABS: PT Prothrombin Time 51.5 SECONDS (9.4-12.5); Protime INR 4.81
[2023-10-28] MEDS: NA CHLORIDE 0.9% 500 ML ONE (13:03)
[2023-10-28] MEDS ORDERED: NA CHLORIDE 0.9% 500 ML IV SCH (14:00)
--- NOTE | 2023-10-28 16:24 | EKG ---
Test Date: 2023-10-27 Test Time: 22:51:04 Hygiene Assistant: MEASUREMENT RESULTS: Intervals: Rate: 68 HI: 138 QRSD: 128 QT: 480 QTc: 510 Olds: P: 57 HI: 138 QRS: -81 T: 86 INTERPRETIVE STATEMENTS: AV sequential or dual chamber electronic pacemaker Compared to ECG 06/25/2023 10:27:38 Ventricular-paced complex(es) or rhythm no longer present Atrial-sensed ventricular-paced complex(es) or rhythm no longer present Electronically Signed On 10-28-23 16:23:37 CDT by Mal Rivera
[2023-10-28 20:38] LABS: Hemoglobin 8.9 g/dL (13.6-17.9)
[2023-10-29] MEDS ORDERED: ACETAMINOPHEN 325 MG TABLET PO PRN (06:55)
[2023-10-29] MEDS ORDERED: IPRATROPIUM BROM 0.5MG/2.5ML IH PRN (07:12)
[2023-10-29] MEDS ORDERED: ALBUTEROL 2.5 MG/3 ML NEB SOL NEB PRN (07:14)
[2023-10-29 07:59] LABS: Specific Gravity 1.021 (1.005-1.030); Sqamous Epithelial <5 /HPF (None Seen); Urine Bacteria <20 /HPF (<20); Urine Bilirubin NEGATIVE (Negative); Urine Blood Negative (Negative); Urine Clarity Clear (Clear); Urine Color Light-Yellow (Yellow); Urine Culture Reflex Order NOT NEEDED; Urine Glucose NEGATIVE (Negative); Urine Ketones NEGATIVE (Negative); Urine Microscopic Reflex YN ORDER UMIC; Urine Nitrite NEGATIVE (Negative); Urine Protein NEGATIVE (Negative); Urine RBC None Seen /HPF (None Seen); Urine Urobilinogen Normal (Normal); Urine WBC <5 /HPF (<5); Urine pH 7.5 (5.0-7.0)
[2023-10-29 08:40] LABS: Absolute Eosinophils 0.2 K/uL (0-0.5); Absolute Lymphocytes (CBC) 0.6 K/uL (0.7-4.9); Absolute Neutrophil 7.9 K/uL (1.8-8.0); Basophils % 0.5 % (0-1.3); Eosinophils % 2.1 % (0-4.4); Hemoglobin 8.7 g/dL (13.6-17.9); Lymphocytes % 6.3 % (15.3-44.8); MCH 26.9 pg (27.0-35.0); MCHC 33.6 g/dL (32.0-36.0); MPV 7.3 fL (7.6-11.3); Monocytes % 9.9 % (3.3-12.3); Neutrophils % 81.2 % (41.7-73.7); Platelets 358 thou/uL (152-406); RBC Red Blood Cell Count 3.25 M/uL (4.33-5.43); Red Cell Distribution Width 17.8 % (12.1-15.2)
[2023-10-29 08:43] LABS: PT Prothrombin Time 42.2 SECONDS (9.4-12.5); PTT, Activated Partial Thromb 49.2 SECONDS (24.3-36.9); Protime INR 3.92
[2023-10-29 08:59] LABS: Albumin 2.4 g/dL (3.4-5.0); Albumin/Globulin Ratio 0.8 (1.1-1.8); Anion Gap 7.6 mEq/L (5.0-15.0); Bilirubin Total 0.5 mg/dL (0.2-1.0); Globulin 3.1 g/dL (2.3-3.5); Potassium 3.6 mEq/L (3.5-5.1); Protein, Total 5.5 g/dL (6.4-8.2)
[2023-10-29] MEDS: FAMOTIDINE 20 MG TAB PO SCH (09:50)
[2023-10-29] MEDS: FINASTERIDE 5 MG TAB PO SCH (09:50)
--- NOTE | 2023-10-29 10:02 | P.PN ---
Date of Service: 10/29/23 Subjective: Feeling better today Thinks breathing is a little easier today denies any bleeding ROS: 10 point ROS as noted above, otherwise negative Physical Exam: GEN: Alert, oriented, NAD HEENT: Normal conjunctiva, sclera anicteric, CV: Regular rate and rhythm, no edema Pulm: Nonlabored respirations on 2L NC ABD: soft, nontender, nondistended Neuro: Normal speech, normal affect Problem List: supratherapeutic INR / symptomatic anemia, secondary to warfarin h/o heart-valve replacement on chronic anticoagulation hypoxia Hypertension supratherapeutic INR / symptomatic anemia, secondary to over coagulation with warfarin Chronic heart-valve replacement on chronic anticoagulation Chronic pacemaker placement on admission INR 16.63, hgb 7.3 secondary to over coagulation with warfarin s/p 1uPRBC, frozen plasma x1, vitamin K 10 mg, Benadryl 25 (10/26) INR improving; down to 3.92 (10/28) INR goal ~2.5-3 restart warfarin 10/28 at lower dose hgb stable in 8s since transfusion fall precautions daily labs hypoxia unclear etiology. CXR (10/28): COPD. Emphysematous lungs, grossly clear. unsure if some degree of copd or from anemia. no history of copd on chart review wean oxygen as tolerated PRN nebs Hypercholesterolemia Hypertension confirm home meds, restart as appropriate VTE: restart warfarin Code: Full Dispo: Home Pending INR stable, off oxygen Time Spent Managing Pts Care (In Minutes): 39
--- NOTE | 2023-10-29 10:49 | RAD REPORT ---
EXAM DESCRIPTION: RAD - Chest Single View - 10/29/2023 10:36 am CLINICAL HISTORY: hypoxia Chest pain. COMPARISON: Chest Single View dated 10/27/2023; Chest Single View dated 06/25/2023; Chest Single View dated 11/26/2022 FINDINGS: Portable technique limits examination quality. The lungs are emphysematous but grossly clear. The heart is normal in size. No displaced fractures.Mu lti lead pacer/defibrillator device. IMPRESSION: COPD.
[2023-10-29] MEDS: WARFARIN SODIUM 2 MG TAB PO SCH (18:17)
[2023-10-29] MEDS: TAMSULOSIN 0.4 MG SR CAP PO SCH (19:51)
[2023-10-29] MEDS: ACETAMINOPHEN 500 MG TAB PO PRN (19:53)
[2023-10-30] MEDS: METOPROLOL TAR 25 MG TAB PO SCH (07:00)
--- NOTE | 2023-10-30 07:53 | P.PN ---
Date of Service: 10/30/23 Subjective: nursing staff reports 1 BM overnight, noted some slight blood tinged when wiping breathing feels a little easier today - better than days ago reports he was a longtime smoker for 15+ years, recently quit a few years ago afebrile ROS: 10 point ROS as noted above, otherwise negative Physical Exam: GEN: Alert, oriented, NAD HEENT: Normal conjunctiva, sclera anicteric, CV: Regular rate and rhythm, no edema Pulm: Nonlabored respirations on 2L NC, mild cough, diminished at bases, mild wheeze ABD: soft, nontender, nondistended Problem List: supratherapeutic INR / symptomatic anemia, secondary to warfarin h/o heart-valve replacement on chronic anticoagulation acute copd exacerbation with hypoxia former tobacco use Hypertension supratherapeutic INR / symptomatic anemia, secondary to warfarin h/o heart-valve replacement on chronic anticoagulation on admission INR 16.63, hgb 7.3 likely due to prednisone and Levaquin prescribed last week and there is just this is something earlier s/p 2uPRBC, frozen plasma x1, vitamin K 10 mg, Benadryl 25 INR improving; 3.04 (10/29) anticipate will continue to downtrend due to vit K given warfarin restarted 10/28 at lower dose, 2mg hgb stable in 8s since transfusion one episode of slightly blood tinged wiping after BM 10/29, monitor closely fall precautions daily labs acute copd exacerbation with hypoxia former tobacco use CXR (10/28): COPD. Emphysematous lungs, grossly clear. denies prior history/diagnosis of COPD, does report several decade history of smoking he was recently given prescriptions for levaquin prednisone (10/19-10/27), PRN albuterol inhaler at [facility] for upper respiratory infection wean oxygen as tolerated Start low dose prednisone 10/29 PRN nebs / inhaler Hypercholesterolemia Hypertension confirm home meds, restart as appropriate VTE: warfarin restarted 10/28 Code: Full Dispo: back to [place], ~1-2 days Pending INR stable, off oxygen, bloody BM resolves Time Spent Managing Pts Care (In Minutes): 39
[2023-10-30] MEDS ORDERED: ALBUTEROL INHALER 200 PUFF/6.7 GM IH PRN (08:00)
[2023-10-30 09:39] LABS: Protime INR 3.04
[2023-10-30 09:41] LABS: Absolute Eosinophils 0.3 K/uL (0-0.5); Absolute Lymphocytes (CBC) 0.6 K/uL (0.7-4.9); Absolute Monocytes 1.1 K/uL (0.1-1.3); Absolute Neutrophil 9.5 K/uL (1.8-8.0); Basophils % 0.4 % (0-1.3); Eosinophils % 2.2 % (0-4.4); Hematocrit 27.1 % (39.6-49.0); Hemoglobin 8.8 g/dL (13.6-17.9); MCH 25.9 pg (27.0-35.0); MCHC 32.6 g/dL (32.0-36.0); MCV 79.4 fL (80-100); MPV 7.6 fL (7.6-11.3); Monocytes % 9.5 % (3.3-12.3); Neutrophils % 82.9 % (41.7-73.7); Nucleated Red Blood Cells % 0.1 % (0-0); Platelets 361 thou/uL (152-406); RBC Red Blood Cell Count 3.41 M/uL (4.33-5.43); Red Cell Distribution Width 18.1 % (12.1-15.2)
[2023-10-30 10:05] LABS: Albumin 2.4 g/dL (3.4-5.0); Albumin/Globulin Ratio 0.8 (1.1-1.8); Anion Gap 5.8 mEq/L (5.0-15.0); Bilirubin Total 0.3 mg/dL (0.2-1.0); Globulin 3.2 g/dL (2.3-3.5); Potassium 3.8 mEq/L (3.5-5.1); Protein, Total 5.6 g/dL (6.4-8.2)
[2023-10-30] MEDS: FERROUS SULFATE 325 MG TAB PO SCH (10:12)
[2023-10-30] MEDS: predniSONE 20 MG TAB PO SCH (10:12)
[2023-10-30] MEDS ORDERED: WARFARIN SODIUM 2 MG TAB PO SCH (17:00)
[2023-10-31 07:29] LABS: Absolute Eosinophils 0.1 K/uL (0-0.5); Absolute Lymphocytes (CBC) 0.7 K/uL (0.7-4.9); Basophils % 0.4 % (0-1.3); Eosinophils % 1.1 % (0-4.4); Hemoglobin 8.3 g/dL (13.6-17.9); Lymphocytes % 6.4 % (15.3-44.8); MCH 26.8 pg (27.0-35.0); MCHC 33.3 g/dL (32.0-36.0); MCV 80.3 fL (80-100); MPV 7.7 fL (7.6-11.3); Monocytes % 9.6 % (3.3-12.3); Neutrophils % 82.5 % (41.7-73.7); Nucleated Red Blood Cells % 0.1 % (0-0); Platelets 371 thou/uL (152-406); RBC Red Blood Cell Count 3.12 M/uL (4.33-5.43); Red Cell Distribution Width 18.3 % (12.1-15.2)
[2023-10-31 07:48] LABS: PT Prothrombin Time 32.1 SECONDS (9.4-12.5); Protime INR 2.96
[2023-10-31 07:49] LABS: Albumin 2.4 g/dL (3.4-5.0); Albumin/Globulin Ratio 0.8 (1.1-1.8); Anion Gap 5.9 mEq/L (5.0-15.0); Bilirubin Total 0.3 mg/dL (0.2-1.0); Globulin 3.1 g/dL (2.3-3.5); Magnesium 2.3 mg/dL (1.6-2.4); Potassium 3.9 mEq/L (3.5-5.1); Protein, Total 5.5 g/dL (6.4-8.2)
--- NOTE | 2023-10-31 09:49 | P.PN ---
Date of Service: 10/31/23 Subjective: no issues overnight off oxygen since last night no BM yet since blood-tinged states he's feeling much better, asking about going back to snf ROS: 10 point ROS as noted above, otherwise negative Physical Exam: GEN: Alert, oriented, NAD HEENT: Normal conjunctiva, sclera anicteric, CV: Regular rate and rhythm, no edema Pulm: Nonlabored respirations on RA, mild cough ABD: soft, nontender, nondistended Problem List: supratherapeutic INR / symptomatic anemia, secondary to warfarin h/o heart-valve replacement on chronic anticoagulation acute on chronic anemia (iron deficiency), with acute blood loss acute COPD exacerbation with hypoxia former tobacco use Hypertension supratherapeutic INR / symptomatic anemia, secondary to warfarin h/o heart-valve replacement on chronic anticoagulation acute on chronic anemia (iron deficiency), with acute blood loss on admission INR 16.63, hgb 7.3 likely due to prednisone and Levaquin prescribed last week and there is just this is something earlier s/p 2uPRBC, frozen plasma x1, vitamin K 10 mg, Benadryl 25 INR improving; 2.96 (10/30) anticipate will continue to downtrend due to vit K given warfarin restarted 10/28 at lower dose, 2mg one episode of slightly blood tinged wiping after BM 10/29 no BM since hgb stable in 8s since transfusion fall precautions daily labs acute COPD exacerbation with hypoxia former tobacco use CXR (10/28): COPD. Emphysematous lungs, grossly clear. denies prior history/diagnosis of COPD, does report several decade history of smoking he was recently given prescriptions for levaquin, prednisone (10/19-10/27), PRN albuterol inhaler at sn[facility] for upper respiratory infection continue low dose prednisone 10/29 PRN nebs / inhaler unsure if patient uses oxygen at home. off oxygen since last night Hypercholesterolemia Hypertension confirm home meds, restart as appropriate VTE: warfarin restarted 10/28 Code: Full Dispo: back to [place], ~1 day Pending INR stable, bloody BM resolves Time Spent Managing Pts Care (In Minutes): 39
[2023-10-31] MEDS: VITAMIN K (ADULT) 10 MG/ML IVP ONE (14:47)
[2023-10-31 18:01] LABS: Hematocrit 27.2 % (39.6-49.0); Hemoglobin 8.8 g/dL (13.6-17.9)
[2023-11-01 06:30] LABS: Absolute Eosinophils 0.1 K/uL (0-0.5); Absolute Lymphocytes (CBC) 0.7 K/uL (0.7-4.9); Absolute Monocytes 0.8 K/uL (0.1-1.3); Absolute Neutrophil 7.7 K/uL (1.8-8.0); Basophils % 0.3 % (0-1.3); Eosinophils % 0.9 % (0-4.4); Hemoglobin 8.1 g/dL (13.6-17.9); Lymphocytes % 7.3 % (15.3-44.8); MCH 26.2 pg (27.0-35.0); MCHC 32.4 g/dL (32.0-36.0); MCV 80.9 fL (80-100); MPV 7.8 fL (7.6-11.3); Monocytes % 8.2 % (3.3-12.3); Neutrophils % 83.3 % (41.7-73.7); Platelets 325 thou/uL (152-406); Red Cell Distribution Width 18.3 % (12.1-15.2)
[2023-11-01 06:45] LABS: Magnesium 2.3 mg/dL (1.6-2.4)
[2023-11-01 06:47] LABS: PT Prothrombin Time 13.2 SECONDS (9.4-12.5); Protime INR 1.18
--- NOTE | 2023-11-01 09:53 | P.PN ---
Date of Service: 11/01/23 Subjective: had a bloody bowel movement yesterday afternoon/evening. nurse reported more than the small amount he had last time, described as red-maroonish, not black asymptomatic. Denies abdominal pain. No dizziness/lightheadedness. breathing okay on room air ROS: 10 point ROS as noted above, otherwise negative Physical Exam: GEN: Alert, oriented, NAD HEENT: Normal conjunctiva, sclera anicteric, CV: Regular rate and rhythm, no edema Pulm: Nonlabored respirations on RA, mild cough ABD: soft, nontender, nondistended Problem List: supratherapeutic INR / symptomatic anemia on chronic warfarin h/o mitral valve replacement on chronic anticoagulation Acute GI bleed Iron deficiency anemia acute COPD exacerbation with hypoxia former tobacco use Hypertension supratherapeutic INR / symptomatic anemia on chronic warfarin h/o mitral valve replacement on chronic anticoagulation Acute GI bleed Iron deficiency anemia typical INR goal 2.5-3.5 on admission INR 16.63, hgb 7.3 likely due to prednisone and Levaquin prescribed last week and there is just this is something earlier s/p 2uPRBC, frozen plasma x1, vitamin K 10 mg, Benadryl 25 initially doing well, no evidence of bleed, and coumadin restarted 10/28, and received 10/29 (2mg each) then had a few drops of blood when wiping, and noted more red-maroonish blood with stool on 10/30, so coumadin stopped and he did not receive 10/30 dose given 5mg IV vit K for reversal INR down to 1.18 (10/31) start heparin drip for bridging / anticoagulation while awaiting possible scope Asymptomatic. Denies abdominal pain. No dizziness/lightheadedness. no SOB. hgb 8.8 -> 8.1 (10/31) monitor H&H closely. Dr. Cadena, GI consulted to eval initially placed NPO this morning for possible intervention discussed with Dr. Cadena, unable to perform scopes/eval early, ok for clear liquids now fall precautions daily labs acute COPD exacerbation with hypoxia former tobacco use CXR (10/28): COPD. Emphysematous lungs, grossly clear. denies prior history/diagnosis of COPD, does report several decade history of smoking he was recently given prescriptions for levaquin, prednisone (10/19-10/27), PRN albuterol inhaler at care home for upper respiratory infection prednisone dc'd 10/30 PRN nebs / inhaler unsure if patient uses oxygen at care home. breathing okay on room air. there is an order for O2 on MAY from care home, unsure if chronic, or was recently placed on O2 Hypercholesterolemia Hypertension confirm home meds, restart as appropriate VTE: warfarin held since 8 pm given bloody BM; start heparin drip Code: Full Dispo: back to [place], ~3-4 days Pending INR stable, bloody BM resolves, GI recs Time Spent Managing Pts Care (In Minutes): 39
[2023-11-01] MEDS ORDERED: HEPARIN 5000 UNIT/ML 1 ML VIAL IV PRN (10:56)
[2023-11-01] MEDS: HEPARIN/D5W 25,000 UNIT/500 ML BAG IV PRN (12:32)
[2023-11-01] MEDS: HEPARIN 5000 UNIT/ML 1 ML VIAL IV SCH (12:32)
[2023-11-01 18:55] LABS: Hematocrit 27.9 % (39.6-49.0); Hemoglobin 8.9 g/dL (13.6-17.9)
[2023-11-02 06:56] LABS: PT Prothrombin Time 12.5 SECONDS (9.4-12.5); Protime INR 1.12
[2023-11-02 06:58] LABS: Hematocrit 26.9 % (39.6-49.0); Hemoglobin 8.8 g/dL (13.6-17.9); MCH 26.1 pg (27.0-35.0); MCHC 32.6 g/dL (32.0-36.0); MCV 79.9 fL (80-100); MPV 7.8 fL (7.6-11.3); Platelets 335 thou/uL (152-406); RBC Red Blood Cell Count 3.36 M/uL (4.33-5.43)
[2023-11-02 07:00] LABS: Magnesium 2.2 mg/dL (1.6-2.4)
--- NOTE | 2023-11-02 16:29 | P.PN ---
Subjective Date of Service: 11/02/23 Chief Complaint: Supratherapeutic INR Patient has no new complaint. No melena or bright red blood per rectum since yesterday. Physical Examination - Vital Signs Temperature: 97.5 F Blood Pressure: 120/74 Pulse: 91 Respirations: 16 Pulse Ox (%): 91 Assessment And Plan - Plan Physical examination General: Alert and oriented x3, NAD, HEENT: Conjunctiva not pale, anicteric sclera Neck: Supple, no elevated JVD Heart: Heart sounds 1 and 2 normal, regular rhythm, normal rate, no pedal edema Lungs: Clear to auscultation bilaterally, adequate breath sounds bilaterally, no rhonchi or crackles. Abdomen: Soft, nondistended, nontender, normal bowel sounds. Extremities: No tenderness, no deformity Skin: Normal skin turgor, no rash, no nodules or ulcers. Neuro: No focal motor deficit. Normal speech. Psychiatry: Normal mood, no agitation. Diagnosis: supratherapeutic INR / symptomatic anemia on chronic warfarin h/o mitral valve replacement on chronic anticoagulation Acute GI bleed Iron deficiency anemia acute COPD exacerbation with hypoxia former tobacco use Hypertension supratherapeutic INR / symptomatic anemia on chronic warfarin h/o mitral valve replacement on chronic anticoagulation Acute GI bleed Iron deficiency anemia INR 16.63 on admission, hgb 7.3 s/p 2uPRBC, frozen plasma x1, vitamin K 10 mg, Benadryl 25 coumadin restarted 10/28, and received 10/29 (2mg each) when INR was 3. Patient did not develop bright red blood per rectum and maroon-colored stool so Coumadin was stopped. INR is currently subtherapeutic. Patient started on heparin after patient given a repeat 5mg IV vit K for reversal No more bleeding. Hemoglobin has been stable around 8 Dr. Cadena, GI consulted and he is planning endoscopy today. fall precautions daily labs Acute COPD exacerbation with hypoxia former tobacco use CXR (10/28): COPD. Emphysematous lungs, grossly clear. Recently treated with Levaquin and prednisone PRN nebs / inhaler Oxygen supplementation as needed. Hypertension Continue home dose metoprolol. BPH Continue Flomax and finasteride. VTE: warfarin held since 10/29 pm given bloody BM; start heparin drip Code: Full Dispo: back to [place].
[2023-11-02] MEDS: NA CHLORIDE 0.9% 500 ML ONE (20:35)
[2023-11-02] MEDS ORDERED: propofoL 200 MG/20 ML VIAL IV ONE (21:02)
[2023-11-02] MEDS ORDERED: GOLYTELY 4000 ML PO SCH (21:36)
[2023-11-02] MEDS: MAGNESIUM CITRATE 300 ML BOT PO ONE (21:36)
[2023-11-02] MEDS: METOCLOPRAMIDE 10 MG/2mL INJ IV SCH (22:31)
[2023-11-02] MEDS: BISACODYL E.C. 5 MG TAB PO ONE (22:31)
[2023-11-02] MEDS ORDERED: MORPHINE 2 MG/ML SYR IV PRN (23:51)
[2023-11-03] MEDS: HEPARIN/D5W 25,000 UNIT/500 ML BAG IV SCH (00:30)
[2023-11-03 07:40] LABS: Hemoglobin 10.5 g/dL (13.6-17.9); MCH 26.4 pg (27.0-35.0); MCHC 32.7 g/dL (32.0-36.0); MCV 80.8 fL (80-100); MPV 7.5 fL (7.6-11.3); Platelets 385 thou/uL (152-406); RBC Red Blood Cell Count 3.96 M/uL (4.33-5.43); Red Cell Distribution Width 19.1 % (12.1-15.2)
[2023-11-03 07:50] LABS: Anion Gap 6.3 mEq/L (5.0-15.0); Magnesium 2.7 mg/dL (1.6-2.4); Potassium 4.3 mEq/L (3.5-5.1)
[2023-11-03 07:55] LABS: PT Prothrombin Time 11.2 SECONDS (9.4-12.5); PTT, Activated Partial Thromb 30.7 SECONDS (24.3-36.9)
[2023-11-03] MEDS: Ringers Lactate 1,000 ML IV ONE (11:55)
--- NOTE | 2023-11-03 12:17 | CON ---
Date of Consultation: 11/02/2023 Reason For Consultation: GI bleed with maroon stools, hematochezia with anemia. Hemoglobin down to 7.3 with MCV of 77, microcytic anemia. History Of Present Illness: The patient is an 83-year-old white male with multiple medical problems including hypertension, hyperlipidemia, coronary artery disease, I believe aortic valve replacement, and pacemaker. The patient came to the hospital due to supratherapeutic INR, found to have maroon st ools and hematochezia as well. Hemoglobin as stated down to 7.3. Past Medical History: Significant for hypertension, hyperlipidemia, coronary artery disease, aortic valve replacement, pacemaker, acute renal failure, and sacral fracture. Social History: He is a with 2 children, boy and girl. Quit tobacco in 2019. No alcohol, becca t at 46 years of age. Family History: Father of old age, mother of old age according to the patient. Medications: Include Tylenol, finasteride, folic acid, gabapentin, melatonin, metoprolol, MiraLAX, _ , tamsulosin, thiamine, and warfarin. Allergies: NKDA. Physical Examination: Vital Signs: The patient is 6 foot, 139 pounds, BMI of 19 kg/sq m. He has temperature of 97.5, puls e 91, respirations 16, blood pressure 120/74, O2 saturation 91% to 92%. General: He is an elderly thin male, lying in bed, in no acute distress. HEENT: Normocephalic, atraumatic. Anicteric. Pupils equal, round, and reactive to light. Extraocu lar movements are intact. Oropharynx clear. Neck: Supple. No masses. Respirations: Clear to auscultation bilaterally. Cardiac: Regular rate and rhythm. No gallops or rubs. Abdomen: Positive bowel sounds. Soft, nontender, nondistended. No masses. No hepatosplenomegaly. Extremities: No clubbing, cyanosis, or edema. 2+ pulses. Neuro: Alert and oriented x3. Grossly nonfocal. 5/5 motor strength. Sensation intact to light joselyn ch. Laboratory Data: The patient has white count of 8.6, hemoglobin 8.8, hematocrit 27, MCV of 80 on adm ission and MCV was 77 prior to blood transfusion, platelet count 335, polys 83%, lymphocytes 7%, mono cytes 8%. PT 11.2, INR of 1.0, PTT of 30.7. On admission, the patient had PT of 51.5 and INR was 16 .63, it is now down to 1.18. Imaging Data: Chest x-ray reveals COPD, otherwise negative. Impression: 1.GI bleed, maroon stools, and hematochezia. 2.Anemia, hemoglobin 7.3, now back up to 8.8 with blood transfusion, MCV of 77 on admission, indicat nadia of microcytic anemia, iron deficiency. I checked the iron numbers. 3.Acute renal failure, improved. 4.Urinary tract infection, improved on IV antibiotics. 5.Coagulopathy with INR of 16.63, now down to 1.83 with correction. Recommendations: 1.Continue serial H and H and transfuse p.r.n. 2.PPI therapy. 3.IV fluids. 4.Keep the patient n.p.o. 5.EGD. 6.Consider colonoscopy. 7.Correct coagulopathy which has been done. 8.IV heparin for aortic valve replacement and we will put on hold for procedures. WAN/STU Voice ID: [id number] Report ID: [id number]
[2023-11-03] MEDS ORDERED: propofoL 200 MG/20 ML VIAL IV ONE (13:02)
[2023-11-03] MEDS ORDERED: NS 0.9% VIAL 10 ML ONE (13:16)
[2023-11-03] MEDS ORDERED: Phenylephrine HCl 10 MG/ML 1 ML VIAL ONE (13:16)
--- NOTE | 2023-11-03 15:14 | CON ---
Date of Consultation: 11/02/2023 Reason For Consultation: GI bleed, numerous stools, and hematochezia. DICTATION ENDS HERE. WAN/STU Voice ID: [id number] Report ID: [id number]
--- NOTE | 2023-11-03 15:59 | P.PN ---
Subjective Date of Service: 11/03/23 Chief Complaint: Supratherapeutic INR Patient has no new complaint. Nursing staff reports maroon-colored stool during colonoscopy with an enema. Patient denies any abdominal pain. Physical Examination - Vital Signs Temperature: 97.0 F Blood Pressure: 128/49 Pulse: 60 Respirations: 16 Pulse Ox (%): 92 Assessment And Plan - Plan Physical examination General: Alert and oriented x3, NAD, HEENT: Anicteric sclera Neck: Supple, no elevated JVD Heart: Heart sounds 1 and 2 normal, regular rhythm, normal rate, no pedal edema Lungs: Clear to auscultation bilaterally, adequate breath sounds bilaterally, no rhonchi or crackles. Abdomen: Soft, nondistended, nontender, normal bowel sounds. Extremities: No tenderness, no deformity Skin: Normal skin turgor, no rash. Neuro: No focal motor deficit. Normal speech. Psychiatry: Normal mood, no agitation. Diagnosis: supratherapeutic INR / symptomatic anemia on chronic warfarin h/o mitral valve replacement on chronic anticoagulation Acute GI bleed Iron deficiency anemia acute COPD exacerbation with hypoxia former tobacco use Hypertension supratherapeutic INR / symptomatic anemia on chronic warfarin h/o mitral valve replacement on chronic anticoagulation Acute GI bleed Iron deficiency anemia INR 16.63 on admission, hgb 7.3 s/p 2uPRBC, frozen plasma x1, vitamin K 10 mg, Benadryl 25 coumadin restarted 10/28, and received 10/29 (2mg each) when INR was 3. Patient did not develop bright red blood per rectum and maroon-colored stool so Coumadin was stopped. INR is currently subtherapeutic. Patient started on heparin after he was given a repeat 5mg IV vit K for reversal Patient had maroon BM with colonoscopy prep this morning. Hemoglobin has been stable around 8 Dr. Cadena, GI performed EGD which was unremarkable. Colonoscopy reports diverticulosis, internal and external hemorrhoid. Small bowel series requested by GI Dr. Cadena. Continue heparin drip fall precautions daily labs Acute COPD exacerbation with hypoxia former tobacco use CXR (10/28): COPD. Emphysematous lungs, grossly clear. Recently treated with Levaquin and prednisone Stable PRN nebs / inhaler Oxygen supplementation as needed. Hypertension Continue home dose metoprolol. BPH Continue Flomax and finasteride. VTE: warfarin held since 10/29 pm given bloody BM; On heparin drip Code: Full Dispo: back to [facility].
[2023-11-03] MEDS ORDERED: IPRATROPIUM BROM 0.5MG/2.5ML IH PRN (16:35)
[2023-11-03] MEDS ORDERED: ALBUTEROL 2.5 MG/3 ML NEB SOL NEB PRN (16:36)
[2023-11-04 07:10] LABS: Hematocrit 27.6 % (39.6-49.0); Hemoglobin 8.9 g/dL (13.6-17.9); MCH 25.9 pg (27.0-35.0); MCHC 32.2 g/dL (32.0-36.0); MCV 80.4 fL (80-100); MPV 7.8 fL (7.6-11.3); Platelets 265 thou/uL (152-406); RBC Red Blood Cell Count 3.43 M/uL (4.33-5.43); Red Cell Distribution Width 18.9 % (12.1-15.2)
[2023-11-04 07:20] LABS: Magnesium 2.3 mg/dL (1.6-2.4)
--- NOTE | 2023-11-04 09:53 | RAD REPORT ---
EXAM DESCRIPTION: RAD - Small Bowel Series - 11/04/2023 9:24 am CLINICAL HISTORY: Abdominal pain/ GI bleed COMPARISON: None. FINDINGS: Contrast enters the colon by approximately 1 hour The mucosal folds of the small bowel appear normal. No permanent filling defects, obstructing or constricting lesions are seen. The small bowel caliber is normal. IMPRESSION: Unremarkable small bowel series.
[2023-11-04 12:10] LABS: PT Prothrombin Time 11.2 SECONDS (9.4-12.5)
--- NOTE | 2023-11-04 14:11 | P.PN ---
Subjective Date of Service: 11/04/23 Chief Complaint: Supratherapeutic INR Patient has no new complaint. No more maroon-colored or bright red blood per rectum since colonoscopy yesterday. Physical Examination - Vital Signs Temperature: 97.5 F Blood Pressure: 108/55 Pulse: 75 Respirations: 16 Pulse Ox (%): 94 Assessment And Plan - Plan Physical examination General: Alert and oriented x3, NAD, Heart: Heart sounds 1 and 2 normal, regular rhythm, normal rate, no pedal edema Lungs: Clear to auscultation bilaterally, adequate breath sounds bilaterally, no rhonchi or crackles. Abdomen: Soft, nondistended, nontender, normal bowel sounds. Skin: Normal skin turgor, no rash. Neuro: No focal motor deficit. Normal speech. Psychiatry: Normal mood, no agitation. Diagnosis: supratherapeutic INR / symptomatic anemia on chronic warfarin h/o mitral valve replacement on chronic anticoagulation Acute GI bleed Iron deficiency anemia acute COPD exacerbation with hypoxia former tobacco use Hypertension supratherapeutic INR / symptomatic anemia on chronic warfarin h/o mitral valve replacement on chronic anticoagulation Acute GI bleed Iron deficiency anemia INR 16.63 on admission, hgb 7.3 s/p 2uPRBC, frozen plasma x1, vitamin K 10 mg, Benadryl 25 coumadin restarted 10/28, and received 10/29 (2mg each) when INR was 3. Patient did not develop bright red blood per rectum and maroon-colored stool so Coumadin was stopped. INR is currently 1.0 Patient started on heparin after he was given a repeat 5mg IV vit K for reversal Patient had maroon BM with colonoscopy prep this morning. Hemoglobin has been stable around 8 Dr. Cadena, GI performed EGD which was unremarkable. Colonoscopy reports diverticulosis, internal and external hemorrhoid. Small bowel series requested by GI Dr. Cadena was also unremarkable Continue heparin drip. Resume Coumadin and watch for bleeding. fall precautions Monitor PT and INR Acute COPD exacerbation with hypoxia former tobacco use CXR (10/28): COPD. Emphysematous lungs, grossly clear. Recently treated with Levaquin and prednisone Stable PRN nebs / inhaler Oxygen supplementation as needed. Hypertension Continue home dose metoprolol. BPH Continue Flomax and finasteride. VTE: On heparin drip, warfarin resumed. Code: Full Dispo: back to [place].
[2023-11-04] MEDS: HEPARIN/D5W 25,000 UNIT/500 ML BAG IV SCH (14:28)
[2023-11-04] MEDS: WARFARIN SODIUM 2 MG TAB PO SCH (16:28)
[2023-11-04] MEDS: ENSURE ENLIVE 237 ML CAN PO SCH (20:24)
[2023-11-05 00:57] LABS: Absolute Basophils 0.1 K/uL (0-0.5); Absolute Eosinophils 0.2 K/uL (0-0.5); Absolute Lymphocytes (CBC) 0.6 K/uL (0.7-4.9); Absolute Monocytes 0.4 K/uL (0.1-1.3); Absolute Neutrophil 4.3 K/uL (1.8-8.0); Basophils % 1.1 % (0-1.3); Eosinophils % 3.7 % (0-4.4); Hematocrit 21.6 % (39.6-49.0); Hemoglobin 6.9 g/dL (13.6-17.9); Lymphocytes % 10.8 % (15.3-44.8); MCHC 32.1 g/dL (32.0-36.0); MCV 80.9 fL (80-100); MPV 7.7 fL (7.6-11.3); Monocytes % 7.7 % (3.3-12.3); Neutrophils % 76.7 % (41.7-73.7); Platelets 224 thou/uL (152-406); RBC Red Blood Cell Count 2.67 M/uL (4.33-5.43); Red Cell Distribution Width 18.7 % (12.1-15.2)
[2023-11-05 05:35] LABS: Absolute Eosinophils 0.2 K/uL (0-0.5); Absolute Lymphocytes (CBC) 0.7 K/uL (0.7-4.9); Absolute Monocytes 0.5 K/uL (0.1-1.3); Absolute Neutrophil 5.4 K/uL (1.8-8.0); Basophils % 0.6 % (0-1.3); Eosinophils % 3.2 % (0-4.4); Hematocrit 26.5 % (39.6-49.0); Hemoglobin 8.6 g/dL (13.6-17.9); Lymphocytes % 9.9 % (15.3-44.8); MCHC 32.4 g/dL (32.0-36.0); MCV 80.3 fL (80-100); MPV 8.2 fL (7.6-11.3); Monocytes % 7.9 % (3.3-12.3); Neutrophils % 78.4 % (41.7-73.7); Platelets 235 thou/uL (152-406); Red Cell Distribution Width 19.1 % (12.1-15.2)
[2023-11-05 07:00] LABS: PT Prothrombin Time 11.6 SECONDS (9.4-12.5); PTT, Activated Partial Thromb 53.7 SECONDS (24.3-36.9); Protime INR 1.04
--- NOTE | 2023-11-05 10:27 | P.PN ---
Subjective Date of Service: 11/05/23 Chief Complaint: Supratherapeutic INR Patient has no new complaint. No rectal bleed or melena over the past couple of days. He denies any abdominal pain. He is tolerating his diet well. Physical Examination - Vital Signs Temperature: 98.4 F Blood Pressure: 108/58 Pulse: 62 Respirations: 19 Pulse Ox (%): 93 Assessment And Plan - Plan Physical examination General: Alert and oriented x3, NAD, Heart: Heart sounds 1 and 2 normal, regular rhythm, normal rate, no pedal edema Lungs: Clear to auscultation bilaterally, adequate breath sounds bilaterally, no rhonchi or crackles. Abdomen: Soft, nondistended, nontender, normal bowel sounds. Skin: Normal skin turgor, no rash. Neuro: No focal motor deficit. Psychiatry: Normal mood. Diagnosis: supratherapeutic INR / symptomatic anemia on chronic warfarin h/o mitral valve replacement on chronic anticoagulation Acute GI bleed Iron deficiency anemia acute COPD exacerbation with hypoxia former tobacco use Hypertension supratherapeutic INR / symptomatic anemia on chronic warfarin h/o mitral valve replacement on chronic anticoagulation Acute GI bleed Iron deficiency anemia INR 16.63 on admission, hgb 7.3 s/p 2uPRBC, frozen plasma x1, vitamin K 10 mg, Benadryl 25 coumadin restarted 10/28, and received 10/29 (2mg each) when INR was 3. Patient did not develop bright red blood per rectum and maroon-colored stool so Coumadin was stopped. INR is currently 1.0 Patient started on heparin after he was given a repeat 5mg IV vit K for reversal Patient had maroon BM with colonoscopy prep on 11/02 Hemoglobin has been stable around 8 Dr. Cadena, GI performed EGD which was unremarkable. Colonoscopy reported diverticulosis, internal and external hemorrhoid. Small bowel series requested by GI Dr. Cadena was also unremarkable Colonoscopy result discussed with surgery Dr. Rodrigues, patient has a small nonbleeding internal hemorrhoid-surgery not indicated. Continue heparin drip. Continue Coumadin and watch for bleeding. fall precautions Monitor PT and INR Waiting for INR to be therapeutic. Acute COPD exacerbation with hypoxia former tobacco use CXR (10/28): COPD. Emphysematous lungs, grossly clear. Recently treated with Levaquin and prednisone Stable PRN nebs / inhaler Oxygen supplementation as needed. Hypertension Continue home dose metoprolol. BPH Continue Flomax and finasteride. VTE: On heparin drip and warfarin. Code: Full Dispo: back to [place].
--- NOTE | 2023-11-05 17:19 | P.PN ---
Subjective Date of Service: 11/05/23 Chief Complaint: GI bleed, melena, anemia, supratherapeutic INR Subjective: Improving (No further GI bleeding noted. Hgb down to 6.9, now up to 8.6. Small bowel series unremarkable.) Review of Systems 10-point ROS is otherwise unremarkable General: Weakness (Improved.) Physical Examination - Vital Signs Temperature: 97.9 F Blood Pressure: 100/58 Pulse: 71 Respirations: 18 Pulse Ox (%): 91 - Physical Exam General: Alert, In no apparent distress, Oriented x3, Cooperative HEENT: Atraumatic, Normocephalic, PERRLA, EOMI Neck: Supple Respiratory: Normal air movement Cardiovascular: Normal pulses Gastrointestinal: Soft and benign, No tenderness, No rebound, No guarding Neurological: Normal speech Assessment And Plan - Current Problems (Diagnosis) (1) GI bleed Current Visit: Yes Status: Acute (2) Melena Current Visit: Yes Status: Acute (3) Severe anemia Current Visit: No Status: Acute - Plan REC: 1) outpatient pillcam 2) monitor H&Hs and transfuse prn
[2023-11-06 06:41] LABS: PT Prothrombin Time 11.7 SECONDS (9.4-12.5); PTT, Activated Partial Thromb 48.8 SECONDS (24.3-36.9); Protime INR 1.05
[2023-11-07 07:10] LABS: Absolute Basophils 0.1 K/uL (0-0.5); Absolute Eosinophils 0.4 K/uL (0-0.5); Absolute Lymphocytes (CBC) 0.7 K/uL (0.7-4.9); Absolute Monocytes 0.6 K/uL (0.1-1.3); Absolute Neutrophil 5.3 K/uL (1.8-8.0); Eosinophils % 5.4 % (0-4.4); Hematocrit 26.8 % (39.6-49.0); Hemoglobin 8.7 g/dL (13.6-17.9); Lymphocytes % 9.5 % (15.3-44.8); MCH 25.7 pg (27.0-35.0); MCHC 32.3 g/dL (32.0-36.0); MCV 79.5 fL (80-100); MPV 8.9 fL (7.6-11.3); Monocytes % 9.1 % (3.3-12.3); Nucleated RBC Absolute Count 0.1 (0-0); Nucleated Red Blood Cells % 0.8 % (0-0); PT Prothrombin Time 11.6 SECONDS (9.4-12.5); PTT, Activated Partial Thromb 24.2 SECONDS (24.3-36.9); Platelets 172 thou/uL (152-406); Protime INR 1.04; RBC Red Blood Cell Count 3.37 M/uL (4.33-5.43); Red Cell Distribution Width 18.7 % (12.1-15.2)
[2023-11-07 07:57] LABS: Anisocytosis 1+; Blood Morphology Comment NOTED (NOT SEEN); Hypochromasia 2+; Platelet Estimate ADEQ; Platelets Clumped FEW; Poikilocytosis 2+; White Blood Cell Scan OK (OK)
--- NOTE | 2023-11-07 16:52 | P.PN ---
Subjective Date of Service: 11/06/23 Chief Complaint: GI bleed, melena, anemia, supratherapeutic INR Patient denies any complaint. No reports of melena or maroon stools. He is tolerating his diet well. Physical Examination - Vital Signs Temperature: 98.0 F Blood Pressure: 122/62 Pulse: 76 Respirations: 18 Pulse Ox (%): 95 Assessment And Plan - Plan Physical examination General: Alert and oriented x3, NAD, Heart: Heart sounds 1 and 2 normal, regular rhythm, normal rate, no pedal edema Lungs: Clear to auscultation bilaterally, adequate breath sounds bilaterally, no rhonchi or crackles. Abdomen: Soft, nondistended, nontender, normal bowel sounds. Skin: Normal skin turgor, no rash. Neuro: No focal motor deficit. Psychiatry: Normal mood. Diagnosis: supratherapeutic INR / symptomatic anemia on chronic warfarin h/o mitral valve replacement on chronic anticoagulation Acute GI bleed Iron deficiency anemia acute COPD exacerbation with hypoxia former tobacco use Hypertension supratherapeutic INR / symptomatic anemia on chronic warfarin h/o mitral valve replacement on chronic anticoagulation Acute GI bleed Iron deficiency anemia INR 16.63 on admission, hgb 7.3 s/p 2uPRBC, frozen plasma x1, vitamin K 10 mg, Benadryl 25 coumadin restarted 10/28, and received 10/29 (2mg each) when INR was 3. Patient did not develop bright red blood per rectum and maroon-colored stool so Coumadin was stopped. INR is currently 1.0 Patient started on heparin after he was given a repeat 5mg IV vit K for reversal Patient had maroon BM with colonoscopy prep on 11/02 Hemoglobin has been stable around 8 Dr. Cadena, GI performed EGD which was unremarkable. Colonoscopy reported diverticulosis, internal and external hemorrhoid. Small bowel series requested by GI Dr. Cadena was also unremarkable Colonoscopy result discussed with surgery Dr. Rodrigues, patient has a small nonbleeding internal hemorrhoid-surgery not indicated. Continue heparin drip. Continue Coumadin and watch for bleeding. Monitor PT and INR Acute COPD exacerbation with hypoxia former tobacco use CXR (10/28): COPD. Emphysematous lungs, grossly clear. Recently treated with Levaquin and prednisone Stable PRN nebs / inhaler Oxygen supplementation as needed. Hypertension Continue home dose metoprolol. BPH Continue Flomax and finasteride. VTE: On heparin drip and warfarin. Code: Full
--- NOTE | 2023-11-07 16:56 | P.PN ---
Subjective Date of Service: 11/07/23 Chief Complaint: GI bleed, melena, anemia, supratherapeutic INR Patient denies any complaint. He is eating well. No issues overnight. No reports of melena or maroon stools. Patient denies shortness of breath Physical Examination - Vital Signs Temperature: 98.0 F Blood Pressure: 122/62 Pulse: 76 Respirations: 18 Pulse Ox (%): 95 Assessment And Plan - Plan Physical examination General: Alert and oriented x3, NAD, Heart: Heart sounds 1 and 2 normal, regular rhythm, normal rate, no pedal edema Lungs: Clear to auscultation bilaterally, adequate breath sounds bilaterally, no rhonchi or crackles. Abdomen: Soft, nondistended, nontender, normal bowel sounds. Skin: Normal skin turgor, no rash. Neuro: No focal motor deficit. Psychiatry: Normal mood. Diagnosis: supratherapeutic INR / symptomatic anemia on chronic warfarin h/o mitral valve replacement on chronic anticoagulation Acute GI bleed Iron deficiency anemia acute COPD exacerbation with hypoxia former tobacco use Hypertension supratherapeutic INR / symptomatic anemia on chronic warfarin h/o mitral valve replacement on chronic anticoagulation Acute GI bleed Iron deficiency anemia INR 16.63 on admission, hgb 7.3 s/p 2uPRBC, frozen plasma x1, vitamin K 10 mg, Benadryl 25 coumadin restarted 10/28, and received 10/29 (2mg each) when INR was 3. Patient did not develop bright red blood per rectum and maroon-colored stool so Coumadin was stopped. INR is currently 1.0 Patient started on heparin after he was given a repeat 5mg IV vit K for reversal Patient had maroon BM with colonoscopy prep on 11/02 Hemoglobin has been stable around 8 Dr. Cadena, GI performed EGD which was unremarkable. Colonoscopy reported diverticulosis, internal and external hemorrhoid. Small bowel series requested by GI Dr. Cadena was also unremarkable Colonoscopy result discussed with surgery Dr. Rodrigues, patient has a small nonbleeding internal hemorrhoid-surgery not indicated. Continue heparin drip. Titrate Coumadin. Monitor PT and INR Acute COPD exacerbation with hypoxia former tobacco use CXR (10/28): COPD. Emphysematous lungs, grossly clear. Recently treated with Levaquin and prednisone Stable Continue home bronchodilators, nebs as needed. Oxygen supplementation as needed. Hypertension Continue home dose metoprolol. BPH Continue Flomax and finasteride. VTE: On heparin drip and warfarin. Code: Full
--- NOTE | 2023-11-07 19:35 | P.PN ---
Subjective Date of Service: 11/10/23 Chief Complaint: GI bleed, melena, anemia, supratherapeutic INR Subjective: Improving (Slowly improving.) Physical Examination - Vital Signs Temperature: 98.0 F Blood Pressure: 103/60 Pulse: 66 Respirations: 18 Pulse Ox (%): 95 Assessment And Plan - Current Problems (Diagnosis) (1) GI bleed Current Visit: Yes Status: Acute (2) Melena Current Visit: Yes Status: Acute (3) Severe anemia Current Visit: No Status: Acute - Plan REC: 1) outpatient pillcam 2) monitor H&Hs and transfuse prn
[2023-11-08 06:13] LABS: PT Prothrombin Time 12.7 SECONDS (9.4-12.5); Protime INR 1.14
[2023-11-08 07:36] VITALS: BMI 18.6
[2023-11-08 09:19] VITALS: O2SAT 91
[2023-11-08] MEDS: WARFARIN SODIUM 5 MG TAB PO SCH (16:20)
[2023-11-08] MEDS ORDERED: WARFARIN SODIUM 3 MG TAB PO SCH (17:00)
--- NOTE | 2023-11-08 17:50 | P.PN ---
Subjective Date of Service: 11/08/23 Chief Complaint: GI bleed, melena, anemia, supratherapeutic INR Patient has no new complaint He denies any GI bleed. Patient denies any shortness of breath Physical Examination - Vital Signs Temperature: 97.6 F Blood Pressure: 103/56 Pulse: 70 Respirations: 12 Pulse Ox (%): 91 Assessment And Plan - Plan Physical examination General: Alert and oriented x3, NAD, Heart: Heart sounds 1 and 2 normal, regular rhythm, normal rate, no pedal edema Lungs: Clear to auscultation bilaterally, adequate breath sounds bilaterally, no rhonchi or crackles. Abdomen: Soft, nondistended, nontender, normal bowel sounds. Skin: Normal skin turgor, no rash. Neuro: No focal motor deficit. Psychiatry: Normal mood. Diagnosis: supratherapeutic INR / symptomatic anemia on chronic warfarin h/o mitral valve replacement on chronic anticoagulation Acute GI bleed Iron deficiency anemia acute COPD exacerbation with hypoxia former tobacco use Hypertension supratherapeutic INR / symptomatic anemia on chronic warfarin h/o mitral valve replacement on chronic anticoagulation Acute GI bleed Iron deficiency anemia INR 16.63 on admission, hgb 7.3 s/p 2uPRBC, frozen plasma x1, vitamin K 10 mg, Benadryl 25 coumadin restarted 10/28, and received 10/29 (2mg each) when INR was 3. Patient did not develop bright red blood per rectum and maroon-colored stool so Coumadin was stopped. INR is currently 1.0 Patient started on heparin after he was given a repeat 5mg IV vit K for reversal Patient had maroon BM with colonoscopy prep on 11/02 Hemoglobin has been stable around 8 Dr. Cadena, GI performed EGD which was unremarkable. Colonoscopy reported diverticulosis, internal and external hemorrhoid. Small bowel series requested by GI Dr. Cadena was also unremarkable Colonoscopy result discussed with surgery Dr. Rodrigues, patient has a small nonbleeding internal hemorrhoid-surgery not indicated. Continue heparin drip. Coumadin restarted. Titrate Coumadin Monitor PT and INR. Planning to discharge once INR is greater than 2. Acute COPD exacerbation with hypoxia former tobacco use CXR (10/28): COPD. Emphysematous lungs, grossly clear. Recently treated with Levaquin and prednisone Stable Continue home bronchodilators, nebs as needed. Oxygen supplementation as needed. Hypertension Continue home dose metoprolol. BPH Continue Flomax and finasteride. VTE: On heparin drip and warfarin. Code: Full
[2023-11-08] MEDS: ENSURE ENLIVE 237 ML CAN PO SCH (21:00)
[2023-11-09 06:08] LABS: PT Prothrombin Time 14.3 SECONDS (9.4-12.5); PTT, Activated Partial Thromb 53.8 SECONDS (24.3-36.9); Protime INR 1.29
[2023-11-09 06:24] LABS: Anion Gap 10.3 mEq/L (5.0-15.0); Potassium 4.3 mEq/L (3.5-5.1)
[2023-11-09 09:44] LABS: Hematocrit 26.9 % (39.6-49.0); Hemoglobin 8.8 g/dL (13.6-17.9); MCHC 32.6 g/dL (32.0-36.0); MCV 79.8 fL (80-100); MPV 8.5 fL (7.6-11.3); Platelets 244 thou/uL (152-406); RBC Red Blood Cell Count 3.37 M/uL (4.33-5.43); Red Cell Distribution Width 18.5 % (12.1-15.2)
--- NOTE | 2023-11-09 11:59 | P.PN ---
Date of Service: 11/09/23 Subjective: Doing okay no issues overnight stable ROS: 10 point ROS as noted above, otherwise negative Physical Exam: GEN: Alert, oriented, NAD HEENT: Normal conjunctiva, sclera anicteric, CV: Regular rate and rhythm, no edema Pulm: Nonlabored respirations on RA, mild cough ABD: soft, nontender, nondistended Problem List: supratherapeutic INR / symptomatic anemia on chronic warfarin h/o mechanical aortic valve replacement on chronic anticoagulation Acute GI bleed Iron deficiency anemia acute COPD exacerbation with hypoxia former tobacco use Hypertension supratherapeutic INR / symptomatic anemia on chronic warfarin h/o mechanical aortic valve replacement on chronic anticoagulation Acute GI bleed Iron deficiency anemia on admission INR 16.63, hgb 7.3 s/p 2uPRBC, frozen plasma x1, vitamin K 10 mg, Benadryl 25 coumadin restarted 10/28 when INR was 3. Stopped 10/29 pm given bloody BM. Patient started on heparin after he was given a repeat 5mg IV vit K for reversal coumadin restarted 11/03 Dr. Cadena, GI consulted s/p EGD/colonoscopy (11/02). EGD noted mild duodenitis. Colonoscopy reported multiple diverticula throughout sigmoid colon, 6mm pedunculated polyp, internal and external hemorrhoid. Small bowel series was unremarkable Hemoglobin has been stable around 8 last 48-72 hours follow up outpatient for further evaluation, pillcam Colonoscopy result discussed with surgery Dr. Rodrigues, patient has a small nonbleeding internal hemorrhoid-surgery not indicated. Continue heparin drip, coumadin Titrate Coumadin Monitor PT and INR. Planning to discharge once INR > 2. acute COPD exacerbation with hypoxia former tobacco use CXR (10/28): COPD. Emphysematous lungs, grossly clear. Recently treated with Levaquin and prednisone at [facility] for upper respiratory infection (10/19-10/27) Continue home bronchodilators, nebs as needed. Oxygen supplementation as needed. Stable Hypercholesterolemia Hypertension confirm home meds, restart as appropriate VTE: On heparin drip and warfarin. Code: Full Dispo: back to [place], ~1-2 days Pending INR > 2 Time Spent Managing Pts Care (In Minutes): 39
[2023-11-09] MEDS: WARFARIN SODIUM 1 MG TAB PO SCH (17:00)
[2023-11-09] MEDS: WARFARIN SODIUM 2.5 MG TAB PO SCH (17:43)
[2023-11-10 06:57] LABS: Hematocrit 26.7 % (39.6-49.0); Hemoglobin 8.8 g/dL (13.6-17.9); MCHC 32.8 g/dL (32.0-36.0); MCV 79.3 fL (80-100); Platelets 252 thou/uL (152-406); RBC Red Blood Cell Count 3.37 M/uL (4.33-5.43); Red Cell Distribution Width 18.5 % (12.1-15.2)
[2023-11-10 07:00] LABS: PT Prothrombin Time 16.2 SECONDS (9.4-12.5); PTT, Activated Partial Thromb 57.9 SECONDS (24.3-36.9); Protime INR 1.46
--- NOTE | 2023-11-10 10:19 | P.PN ---
Date of Service: 11/10/23 Subjective: no acute events overnight Patient reports BM today. No obvious blood noted denies abdominal pain afebrile h/h stable ROS: 10 point ROS as noted above, otherwise negative Physical Exam: GEN: Alert, orientedx2, NAD HEENT: Normal conjunctiva, sclera anicteric, CV: Regular rate and rhythm, no edema Pulm: Nonlabored respirations on RA, mild cough ABD: soft, nontender, nondistended Problem List: supratherapeutic INR / symptomatic anemia on chronic warfarin h/o mechanical aortic valve replacement on chronic anticoagulation Acute GI bleed Iron deficiency anemia acute COPD exacerbation with hypoxia former tobacco use Hypertension supratherapeutic INR / symptomatic anemia on chronic warfarin h/o mechanical aortic valve replacement on chronic anticoagulation Acute GI bleed Iron deficiency anemia on admission INR 16.63, hgb 7.3 s/p 2uPRBC, frozen plasma x1, vitamin K 10 mg, Benadryl 25 coumadin restarted 10/28 when INR was 3. Stopped 10/29 pm given bloody BM. Patient started on heparin after he was given a repeat 5mg IV vit K for reversal coumadin restarted 11/03 Dr. Cadena, GI consulted s/p EGD/colonoscopy (11/02). EGD noted mild duodenitis. Colonoscopy reported multiple diverticula throughout sigmoid colon, 6mm pedunculated polyp, internal and external hemorrhoid. Small bowel series was unremarkable Hemoglobin has been stable around 8 last several days follow up outpatient for further evaluation, pillcam Colonoscopy result discussed with surgery Dr. Rodrigues, patient has a small nonbleeding internal hemorrhoid-surgery not indicated. will discuss with cardiology - regarding lovenox bridge with coumadin Titrate Coumadin Monitor PT and INR. potential dc tomorrow with lovenox bridging acute COPD exacerbation with hypoxia former tobacco use CXR (10/28): COPD. Emphysematous lungs, grossly clear. Recently treated with Levaquin and prednisone at [facility] for upper respiratory infection (10/19-10/27) Continue home bronchodilators, nebs as needed. Oxygen supplementation as needed. Stable Hypercholesterolemia Hypertension confirm home meds, restart as appropriate VTE: On heparin drip and warfarin. Code: Full Dispo: back to [place], ~1-2 days pending cardio recs, potential dc tomorrow with lovenox bridging Time Spent Managing Pts Care (In Minutes): 39
--- NOTE | 2023-11-10 14:40 | P.PN ---
Subjective Date of Service: 11/10/23 Chief Complaint: GI bleed, melena, anemia, supratherapeutic INR Subjective: No new changes (Stable and hgb stable. No GI bleeding reported.) Physical Examination - Vital Signs Temperature: 97.7 F Blood Pressure: 121/55 Pulse: 96 Respirations: 18 Pulse Ox (%): 91 Assessment And Plan - Current Problems (Diagnosis) (1) GI bleed Current Visit: Yes Status: Acute (2) Melena Current Visit: Yes Status: Acute (3) Severe anemia Current Visit: No Status: Acute - Plan REC: 1) outpatient pillcam 2) monitor H&Hs and transfuse prn
--- NOTE | 2023-11-10 18:00 | P.CNS ---
Date of Consult: 11/10/23 Chief Complaint: GI bleed, melena, anemia, supratherapeutic INR History of Present Illness: Patient with PMH of mechanical aortic valve presented with high INR and GI bleed, scopes were done and shown internal hemorrhiods, Hgb has been stable after blood transfusion. denies any complains Allergies No Known Allergies Allergy (Verified 11/26/22 16:28) Home medications list reviewed: Yes Home Medications: Acetaminophen 650 mg PO Q6HP PRN 11/26/22 Finasteride 5 mg PO DAILY 11/26/22 Metoprolol Tartrate 25 mg PO Q12H 11/26/22 Polyethylene Glycol 3350 [Miralax] 17 gm PO DAILY 11/26/22 Tamsulosin HCl 0.4 mg PO BEDTIME 11/26/22 Famotidine [Pepcid*] 20 mg PO DAILY 10/29/23 Ferrous Sulfate [Ferrous Sulfate*] 325 mg PO DAILY 10/29/23 Folic Acid 1 tab PO DAILY 10/29/23 Guaifenesin [Cough Syrup] 10 ml PO Q6HP PRN 10/29/23 Ipratropium/Albuterol Sulfate [Iprat-Albut 0.5-3(2.5) mg/3 ml] 1 inh IH Q6HP PRN 10/29/23 Loratadine [Claritin*] 10 mg PO DAILY 10/29/23 Melatonin [Melatonin*] 3 mg PO BEDTIME PRN PRN 10/29/23 Multivitamin [Multiple Vitamins] 1 tab PO DAILY 10/29/23 Sennosides [Senna] 8.6 mg PO Q12HP PRN 10/29/23 Warfarin Sodium 3.5 mg PO BEDTIME 10/29/23 - Past Medical/Surgical History Diabetic: No -: Acute renal failure -: Hyperlipidemia -: Hypertension -: Heart valve replaced on chronic anticoagulation -: Permanent pacemaker -: Fracture of the sacrum -: Heart valve replaced - Social History Smoking Status: Former smoker Alcohol use: No CD- Drugs: No Caffeine use: Yes Place of Residence: [facility] Review of Systems 10-point ROS is otherwise unremarkable Physical Examination Temp Pulse Resp BP Pulse Ox 98.1 F 73 16 102/52 L 92 11/10/23 16:00 11/10/23 16:00 11/10/23 16:00 11/10/23 16:00 11/10/23 16:00 General: Alert, In no apparent distress HEENT: Atraumatic, PERRLA, Mucous membr. moist/pink, EOMI, Sclerae nonicteric Neck: Supple, 2+ carotid pulse no bruit, No LAD, Without JVD or thyroid abnormality Respiratory: Clear to auscultation bilaterally, Normal air movement Cardiovascular: Regular rate/rhythm, Normal S1 S2 Gastrointestinal: Normal bowel sounds, No tenderness Musculoskeletal: No tenderness Integumentary: No rashes Neurological: Normal gait, Normal speech, Normal tone, Normal affect Lymphatics: No axilla or inguinal lymphadenopathy - Problems (1) H/O mechanical aortic valve replacement Current Visit: Yes Status: Acute Plan: advised patient that he needs to be placed back on Coumadin but he refuses to be on it, not sure about his mental ability to make the call about it as he says someone told him that he do not need Coumadin, i insisted that he got a mec hanical valve and he need to be on it with INR goal of 2-3. ok to bridge with Lovenox until INR is therapeutic. Cardiology will sign off.
[2023-11-11] MEDS: ENOXAPARIN 60 MG/0.6 ML SQ SCH (00:20)
[2023-11-11 04:58] VITALS: TEMP 97.8
[2023-11-11 06:42] LABS: PT Prothrombin Time 18.2 SECONDS (9.4-12.5); Protime INR 1.65
[2023-11-11 06:44] LABS: Hematocrit 27.2 % (39.6-49.0); Hemoglobin 8.7 g/dL (13.6-17.9); MCH 25.7 pg (27.0-35.0); MCHC 32.1 g/dL (32.0-36.0); MPV 9.1 fL (7.6-11.3); Platelets 240 thou/uL (152-406); Red Cell Distribution Width 18.1 % (12.1-15.2)
[2023-11-11 10:04] VITALS: BP 118/52
--- NOTE | 2023-11-12 07:05 | P.DS ---
Admission Date: 10/28/23 Discharge Date: 11/11/23 Disposition: TRANSFER TO [facility] Discharge Condition: GOOD Reason for Admission: GI bleed, melena, anemia, supratherapeutic INR Consultations: Cardiology - Dr. Rivera GI - Dr. Cadena Brief History of Present Illness: 83 yo M, PMH: Heart-valve replacement; on Coumadin pacemaker placement; Acute Kidney Failure; fracture of sacrum; Hypercholesterolemia; Hypertensive disorder, UTI Patient presents to the emergency room with abnormal labs. He reports being on Levaquin, and Coumadin, had of adverse drug reaction, with elevated INR. He was treated with fresh frozen plasma, vitamin K 10 mg, Benadryl 25 for supratherapeutic INR., No reported chest pain, alert and oriented 3, no focal deficits, no reported nausea vomiting diarrhea. Plan to admit to [facility] for supratherapeutic INR, symptomatic anemia, acute coagulopathy secondary to warfarin ER evaluation INR was 16.63, repeat coagulation labs in the a.m. Fall precautions., Chest x-ray IMPRESSION: 9 millimeter left lower lobe nodule equivocally mildly enlarged prior recommended further evaluation Hospital Course: Problem List: supratherapeutic INR / symptomatic anemia on chronic warfarin h/o mechanical aortic valve replacement on chronic anticoagulation Acute GI bleed Iron deficiency anemia acute COPD exacerbation with hypoxia former tobacco use Hypertension Physician discharge instructions: Patient presented with abnormal labs - INR 16.63, hgb 7.3. Suspect warfarin interaction with recent levaquin and oral steroid. Patient received 2 units of blood, frozen plasma x1, vitamin K 10 mg in ED. Warfarin was restarted 10/28 once INR was ~3.0 however had to be stopped the following day d/t new onset bloody bowel movements. Patient was evaluated by Dr. Cadena, GI, and underwent EGD/colonoscopy on 11/02. EGD noted mild duodenitis. Colonoscopy reported multiple diverticula throughout sigmoid colon, 6mm pedunculated polyp, internal and external hemorrhoid. No indications to warrant surgery at this time. Coumadin was restarted 11/03 and INR has been slowly improving daily. Patient with stable vitals / hemoglobin since EGD/c-scope while on coumadin with heparin drip bridge. Discussed with cardiology, ok to continue to bridge with lovenox. Hemoglobin has been stable in the 8s after receiving blood transfusions. Advised patient to follow up with GI in near future for further discussion and consider pillcam to further evaluate. Hgb on discharge: 8.7. INR on discharge: 1.6 Medications: continue lovenox 1mg/kg q12hr until INR is therapeutic titrate coumadin as needed Follow up: PCP 3-5 days GI in ~3-4 weeks Please call to schedule / confirm appointments Physical Exam: GEN: Alert, orientedx3, NAD HEENT: Normal conjunctiva, sclera anicteric, CV: Regular rate and rhythm, no edema Pulm: Nonlabored respirations on room air, clear bilaterally ABD: soft, nontender, nondistended Vital Signs/Physical Exam: Temp Pulse Resp BP Pulse Ox 97.8 F 64 12 118/52 L 93 11/11/23 08:00 11/11/23 08:00 11/11/23 08:00 11/11/23 08:00 11/11/23 08:00 Laboratory Data at Discharge: WBC 6.70 thou/uL (4.3-10.9) 11/11/23 05:24 Hgb 8.7 g/dL (13.6-17.9) L 11/11/23 05:24 Hct 27.2 % (39.6-49.0) L 11/11/23 05:24 Plt Count 240 thou/uL (152-406) 11/11/23 05:24 PT 18.2 SECONDS (9.4-12.5) H 11/11/23 05:24 INR 1.65 11/11/23 05:24 APTT 57.9 SECONDS (24.3-36.9) H 11/10/23 05:30 Sodium 134 mEq/L (136-145) L 11/09/23 05:49 Potassium 4.3 mEq/L (3.5-5.1) 11/09/23 05:49 BUN 36 mg/dL (7-18) H 11/09/23 05:49 Creatinine 1.12 mg/dL (0.70-1.30) 11/09/23 05:49 Glucose 103 mg/dL (74-106) 11/09/23 05:49 Phosphorus 3.2 mg/dL (2.5-4.9) 11/06/23 06:25 Magnesium 2.3 mg/dL (1.6-2.4) 11/04/23 06:57 Total Bilirubin 0.3 mg/dL (0.2-1.0) 10/31/23 06:09 AST 14 U/L (15-37) L 10/31/23 06:09 ALT 16 U/L (16-61) 10/31/23 06:09 Alkaline Phosphatase 61 U/L (45-117) 10/31/23 06:09 Home Medications: Acetaminophen 650 mg PO Q6HP PRN 11/26/22 Finasteride 5 mg PO DAILY 11/26/22 Metoprolol Tartrate 25 mg PO Q12H 11/26/22 Polyethylene Glycol 3350 [Miralax] 17 gm PO DAILY 11/26/22 Tamsulosin HCl 0.4 mg PO BEDTIME 11/26/22 Famotidine [Pepcid*] 20 mg PO DAILY 10/29/23 Ferrous Sulfate [Ferrous Sulfate*] 325 mg PO DAILY 10/29/23 Folic Acid 1 tab PO DAILY 10/29/23 Guaifenesin [Cough Syrup] 10 ml PO Q6HP PRN 10/29/23 Ipratropium/Albuterol Sulfate [Iprat-Albut 0.5-3(2.5) mg/3 ml] 1 inh IH Q6HP PRN 10/29/23 Loratadine [Claritin*] 10 mg PO DAILY 10/29/23 Melatonin [Melatonin*] 3 mg PO BEDTIME PRN PRN 10/29/23 Multivitamin [Multiple Vitamins] 1 tab PO DAILY 10/29/23 Sennosides [Senna] 8.6 mg PO Q12HP PRN 10/29/23 Warfarin Sodium 3.5 mg PO BEDTIME 10/29/23 Enoxaparin Sodium [Lovenox 60 MG INJ] 60 mg SQ BID #12 syr 11/11/23 New Medications: Enoxaparin Sodium [Lovenox 60 MG INJ] 60 mg SQ BID #12 syr Physician Discharge Instructions: Physician discharge instructions: Patient presented with abnormal labs - INR 16.63, hgb 7.3. Suspect warfarin interaction with recent levaquin and oral steroid. Patient received 2 units of blood, frozen plasma x1, vitamin K 10 mg in ED. Warfarin was restarted 10/28 once INR was ~3.0 however had to be stopped the following day d/t new onset bloody bowel movements. Patient was evaluated by Dr. Cadena, GI, and underwent EGD/colonoscopy on 11/02. EGD noted mild duodenitis. Colonoscopy reported multiple diverticula throughout sigmoid colon, 6mm pedunculated polyp, internal and external hemorrhoid. No indications to warrant surgery at this time. Coumadin was restarted 11/03 and INR has been slowly improving daily. Patient with stable vitals / hemoglobin since EGD/c-scope while on coumadin with heparin drip bridge. Discussed with cardiology, ok to continue to bridge with lovenox. Hemoglobin has been stable in the 8s after receiving blood transfusions. Advised patient to follow up with GI in near future for further discussion and consider pillcam to further evaluate. Hgb on discharge: 8.7. INR on discharge: 1.6 Medications: continue lovenox 1mg/kg q12hr until INR is therapeutic titrate coumadin as needed Follow up: PCP 3-5 days GI in ~3-4 weeks Please call to schedule / confirm appointments [employer] resident: [address] [address] P:[phone]/F:[phone] Followup: Lizette Monzon MD [Primary Care Provider] - Time spent managing pt's care (in minutes): 45
== END 2023-11-11 10:27 | DRG 377 ==
LOC: ER 20:29 → ERHOLD 10-28 02:29 → 4TH 10-28 07:47
PROVIDERS: ADMIT Hospitalist; ATTEND Hospitalist
PROC: 30233N1 Transfusion of Nonautologous Red Blood Cells into Peripheral Vein, Percutaneous Approach (ICD-10-PCS; 2023-10-27)
PROC: 30233K1 Transfusion of Nonautologous Frozen Plasma into Peripheral Vein, Percutaneous Approach (ICD-10-PCS; 2023-10-28)
PROC: 0DB88ZX Excision of Small Intestine, Via Natural or Artificial Opening Endoscopic, Diagnostic (ICD-10-PCS; 2023-11-02)
PROC: 0DB78ZX Excision of Stomach, Pylorus, Via Natural or Artificial Opening Endoscopic, Diagnostic (ICD-10-PCS; 2023-11-02)
PROC: 0DJD8ZZ Inspection of Lower Intestinal Tract, Via Natural or Artificial Opening Endoscopic (ICD-10-PCS; 2023-11-02)
PROC: 0DB68ZX Excision of Stomach, Via Natural or Artificial Opening Endoscopic, Diagnostic (ICD-10-PCS; principal; 2023-11-02 18:30)
DX: K29.81 Duodenitis with bleeding (principal); E43 Unspecified severe protein-calorie malnutrition; D62 Acute posthemorrhagic anemia; Z68.1 Body mass index [BMI] 19.9 or less, adult; D68.9 Coagulation defect, unspecified; N17.9 Acute kidney failure, unspecified; N39.0 Urinary tract infection, site not specified; J44.1 Chronic obstructive pulmonary disease with (acute) exacerbation; K57.31 Diverticulosis of large intestine without perforation or abscess with bleeding; R79.1 Abnormal coagulation profile; D50.9 Iron deficiency anemia, unspecified; K63.5 Polyp of colon; N40.0 Benign prostatic hyperplasia without lower urinary tract symptoms; E78.00 Pure hypercholesterolemia, unspecified; K64.8 Other hemorrhoids; K64.4 Residual hemorrhoidal skin tags; I10 Essential (primary) hypertension; Z95.0 Presence of cardiac pacemaker; Z95.2 Presence of prosthetic heart valve; Z79.01 Long term (current) use of anticoagulants; Z87.891 Personal history of nicotine dependence; Z79.899 Other long term (current) drug therapy
CPT/HCPCS: 36415; 71045; 74250; 80048; 80053; 80076; 81001; 83735; 83880; 84100; 84484; 85014; 85018; 85025; 85027; 85049; 85610; 85730; 86850; 86900; 86901; 86920; 88305; 88312; 93005; 96372; 97110; 97112; 97161; 97530; 99285; A4216; J1644; J1650; J2371; J2704; J2765; J3430; J7040; J7120; J7512; P9016; P9059

== ENCOUNTER 2024-12-12 20:22 | Emergency (ER) | payer MEDICAID, OTHER ==
--- OUTSIDE RECORDS SUMMARY | 2024-12-12 20:27 | XMS REPORT | Continuity of Care Document ---
Author Name Unknown Address [address] [facility] [place] [address] Organization [facility] [place] Address [address] [facility] [place] [address] Care Team Providers Care Supervisor Machine Workers Name Role Phone BEL SNEED Attending Clinician Unavailable BRIANA KERN Attending Clinician Unavail [place] Humphrey Admitting Clinician Unavailable Payers Payer Name Policy Type Policy Number Effective Date Expirati on Date Source MEDICARE PART A [id number] 2006 00:00:00 [facility] OON [id number] 2022 00:00:00 Problems Condition Name Condition Details Condition Category Status Onset Date Resolution Date Last Treatment Date Treating Clinician Comments Source PAIN TAILBONE/ FALL PAIN TAILBONE/ FALL Active 03/30/2022 [facility] Diagnosis Active 16 00:00: 00 2022-06-09 13:28:00 Samira Majano Deep venous thrombosis (disorder) Deep venous thrombosis (disorder) Active Problem 05/18/2022 [facility] Problem Active 2022-05-18 09:40:54 Memkam Majano Dissection of aorta (disorder) Dissection of aorta (disorder) Active Problem 05/18/2022 [facility] Problem Active 2022-05-18 09:40:54 Memkam Majano Swelling of upper limb (finding) Swelling of upper limb (finding) Active Problem 05/18/2022 [facility] Problem Active 2022-05-18 09:40:54 Memkam Majano Tachycardi a (finding) Tachycardi a (finding) Active Problem 05/18/2022 [facility] Problem Active 2022-05-18 09:40:54 Samira Majano Urinary tract infectious disease (disorder) Urinary tract infectious disease (disorder) Active Problem 05/18/2022 [facility] Problem Active 2022-05-18 09:40:54 Samira Majano Social History Smoking Status Start Date Stop Date Source Social History [facility] Medications Ordered Medication Name Filled Medication Name Start Date Stop Date Current Medication? Ordering Clinician Indication Dosage Frequency Signature (SIG) Comments Components Source acetaminoph en 325 mg oral tablet. 05-09 19:47: 00 Yes 650 mg = 2 tab, PO, Q8H, PRN Pain Score 1-3, 0 Refill(s) Samira Majano melatonin 3 mg oral tablet 05-09 19:43: 00 Yes 3 mg = 1 tab, PO, Bedtime, PRN Sleep, 0 Refill(s) Samira Majano thiamine 100 mg oral tablet 05-09 19:43: 00 Yes 100 mg = 1 tab, PO, Daily, 0 Refill(s) Samira Majano senna 8.6 mg oral tablet 05-09 19:43: 00 Yes 17.2 mg = 2 tab, PO, BID, PRN as needed for constipati on, 0 Refill(s) Samira Majano aspirin 81 mg tablet, enteric coated 05-09 19:42: 00 Yes 81 mg = 1 tab, PO, Daily, 0 Refill(s) Samira Majano folic acid 1 mg oral tablet 05-09 19:42: 00 Yes 1 mg = 1 tab, PO, Daily, 0 Refill(s) Samira Majano gabapentin 100 mg oral capsule 05-09 19:42: 00 Yes 100 mg = 1 cap, PO, Q8H-06, 0 Refill(s) Samira Majano heparin 5000 units/mL injectable solution 05-09 19:42: 00 Yes 5,000 unit = 1 mL, SUB-Q, Q8H, 0 Refill(s) Samira Majano ferrous gluconate 324 mg oral tablet 05-09 19:30: 00 Yes 324 mg = 1 tab, PO, Every Other Day, 0 Refill(s) Samira Majano metoprolol tartrate 05-09 19:30: 00 Yes 12.5 mg, PO, Q12H, hold for SBP <110 or HR <60, 0 Refill(s) Samira Majano César packet 05-07 13:30: 00 No Notes: (Same as: César Cheyenne) Samira Majano aspirin 05-05 15:00: 00 No Notes: Do not crush or chew. (Same As: Ecotrin) Samira Majano PHOS-NaK 04-30 13:48: 00 No Notes: (Same as: Phos-NaK) Each 1.5 gm pkt has 250mg phosphorou s. Mix w/2.5oz water and stir. Samira Majano Isolyte S PH 7.4 1,000 mL 04-30 01:17: 00 No Notes: (Same as: Isolyte S PH7.4, Normosol-R PH 7.4, Plasma-Lyt e A ) Samira Majano César packet 04-29 22:30: 00 No Notes: (Same as: César Cheyenne) Samira Majano heparin 5000 units/mL injectable solution 04-29 22:00: 00 No Notes: porcine heparin Samira Majano César packet 04-28 22:30: 00 No Notes: (Same as: César Unflavored ) Administer ing CÉSAR orally: Mix into 8-10 fl oz of room temperatur e juice, soda, or water. Also mixes well with warm beverages, like coffee or tea. Can be mixed with applesauce . Thoroughly stir for 30-60 seconds or until completely dissolved Samria sweeney [facility] Dextrose 50% Syringe (D50W) 04-28 19:27: 00 No 12.5 gm, 25 mL, Route: IVP, Drug Form: INJ, Dosing Weight 68.1, kg, PRN, PRN Blood Glucose Results, Start date: 04/28/22 13:27:00 PIN DRAFTER, Duration: 30 day, Stop date: 05/28/22 14:26:00 CDT, 0 Samira Majano glucagon 04-28 19:27: 00 No 1 mg, Route: IM, Drug form: PDR/INJ, PRN, Dosing Weight 68.1, kg, PRN Blood Glucose Results, Start date: 04/28/22 13:27:00 PIN DRAFTER, Duration: 30 day, Stop date: 05/28/22 14:26:00 CDT, 0 Samira Majnao insulin lispro 04-28 19:27: 00 No Notes: (Same as: Humalog) Roll in palms of hands gently; Do not shake vigorously . WASTE: F/P - Black; E - Municipal Trash Bin Stable for 28 days at room temperatur e. Expires in days from ____Date Samira Kingann hydrALAZINE 04-28 18:28: 00 No Notes: (Same as: Apresoline ) Push over 5 minutes Samira Majano potassium chloride 04-28 17:22: 00 No Notes: (Same as: KCL) 10 mEq/100ml product recommende d for peripheral line administra tion. Infuse no faster than 10 mEq/hr if given peripheral ly. Samira Majano sodium phosphate + Sodium Chloride 0.9% IV 250 mL 04-28 17:22: 00 No Notes: Infuse over 4 hour. Do not infuse phosphorou s concurrent ly in the same line as TPN or IVF that contains calcium. For double lumen central lines, phosphorou s may be infused in a separate lumen from TPN. Samira Majano potassium phosphate-s odium phosphate 250 mg-280 mg-160 mg oral powder for reconstitut ion 04-28 17:22: 00 No Notes: (Same as: Phos-NaK) Each 1.5 gm pkt has 250mg phosphorou s. Mix w/2.5oz water and stir. Samira Majano magnesium sulfate 04-28 17:22: 00 No Notes: WASTE: F/P - Sink; E - Municipal Trash Bin Samira Majano calcium gluconate 04-28 17:22: 00 No Notes: Contains: calcium gluconate 20mg/mL NaCl 0.67% 50mL WASTE: F/P - Sink; E - Municipal Trash Bin Samira Majano sugammadex (ANES) 04-28 16:38: 00 No Route: IV, Drug form: SOLN, ONCE, Stop date: 04/28/22 10:38:00 PIN DRAFTER Samira Majano niCARdipine (ANES) 04-28 16:38: 00 No Route: IV, Drug form: INJ, ONCE, Stop date: 04/28/22 10:38:00 PIN DRAFTER Samira Majano Sodium Chloride 0.9% IV 1,000 mL 04-28 16:31: 00 No 1,000 mL, Rate: 125 ml/hr, Infuse over: 8 hr, Route: IV, Dosing Weight 68.1 kg, Total Volume: 1,000, Start date: 04/28/22 10:31:00 PIN DRAFTER, Duration: 30 day, Stop date: 05/28/22 10:30:00 CDT, BSA: 1.83 m2, 0 Samira BRICEÑO hydrALAZINE 04-28 16:31: 00 No Notes: (Same as: Apresoline ) Push over 5 minutes Samira BRICEÑO acetaminoph en 04-28 16:31: 00 No Notes: Max acetaminop hen 4000 mg/day (4 gm/day). (Same as: Tylenol Extra Strength) Samira BRICEÑO fentaNYL 04-28 16:31: 00 No Notes: (Same as: Sublimaze) Preservati ve free. Samira BRICEÑO flumazenil 04-28 16:31: 00 No Notes: (Same as: Romazicon) Samira TUBBSS naloxone 04-28 16:31: 00 No Notes: Same as Narcan Samira BRICEÑO ondansetron 04-28 16:31: 00 No Notes: (Same as: Zofran) MEDICATION WASTE Product Size: 4 mg Product Wasted: ___ mg Samira Majano ondansetron (ANES) 04-28 16:16: 00 No Route: IV, Drug form: INJ, ONCE, Stop date: 04/28/22 10:16:00 PIN DRAFTER Samira Majano lidocaine (ANES) 04-28 15:24: 00 No Route: SUB-Q, Drug form: INJ, ONCE, Stop date: 04/28/22 9:24:00 PIN DRAFTER Samira Majano dexamethaso ne (ANES) 04-28 15:24: 00 No Route: IV, Drug form: INJ, ONCE, Stop date: 04/28/22 9:24:00 PIN DRAFTER Samira Majano propofol (ANES) 04-28 15:19: 00 No Route: IV, Drug form: INJ, ONCE, Stop date: 04/28/22 9:19:00 PIN DRAFTER Samira Majano rocuronium (ANES) 04-28 15:19: 00 No Route: IV, Drug form: INJ, ONCE, Stop date: 04/28/22 9:19:00 PIN DRAFTER Samira Majano phenylephri ne (ANES) 100 microgram 04-28 15:18: 00 No Route: IV, Drug form: INJ, Start date: 04/28/22 9:18:00 PIN DRAFTER, Stop date: 04/28/22 10:18:00 PIN DRAFTER Samira Majano Sodium Chloride 0.9% IV (ANES) 500 mL 04-28 15:18: 00 No Route: IV, Total Volume: 500, Start date: 04/28/22 9:18:00 PIN DRAFTER, Stop date: 04/28/22 10:18:00 PIN DRAFTER Samira Majano fentaNYL (ANES) 04-28 15:14: 00 No Route: IV, Drug form: INJ, ONCE, Stop date: 04/28/22 9:14:00 PIN DRAFTER Samira Majano ceFAZolin (ANES) 04-28 15:14: 00 No Route: IV, Drug form: INJ, ONCE, Stop date: 04/28/22 9:14:00 PIN DRAFTER Samira Kingann phenylephri ne (ANES) 04-28 14:44: 00 No Route: IV, Drug form: INJ, ONCE, Stop date: 04/28/22 8:44:00 PIN DRAFTER Samira Majano levETIRAcet am (ANES) 100 mg 04-28 14:40: 00 No Route: IV, Drug form: INJ, Start date: 04/28/22 8:40:00 PIN DRAFTER, Stop date: 04/28/22 9:40:00 PIN DRAFTER Samira Majano lidocaine-e pi 2%[id number] 2426-0 2-14 14:35: 00 No Notes: (Same as: Xylocaine w/Epinephr ine) Samira Majano vancomycin (ANES) 1000 mg 04-28 14:30: 00 No Route: IV, Drug form: INJ, Start date: 04/28/22 8:30:00 PIN DRAFTER, Stop date: 04/28/22 9:30:00 PIN DRAFTER Samira Majano Isolyte S PH 7.4 (ANES) 1000 mL 04-28 13:52: 00 No Route: IV, Total Volume: 1,000, Start date: 04/28/22 7:52:00 PIN DRAFTER, Stop date: 04/28/22 8:52:00 PIN DRAFTER Samira Majano Vitamin K1 + Sodium Chloride 0.9% IV 50 mL 04-28 10:42: 00 No Notes: (Same as: Aqua-Mephy ton, Vitamin K) MEDICATION WASTE Product Size: 10 mg Product Wasted: ___ mg Samira Majano warfarin 04-26 23:00: 00 No Notes: Nurse to ensure documentat ion of patient education per anticoagul ation policy. Avoid large intake of vitamin-K containing foods diet. (Same As: Coumadin) WASTE: F/P - P Waste Black; E - P Waste Black [facility] 3:Reproduc tive risk Hazardous Drug -- Refer to safe handling procedure PPE Matrix Samira Majano warfarin -11 23:00: 00 No Notes: Nurse to ensure documentat ion of patient education per anticoagul ation policy. Avoid large intake of vitamin-K containing foods diet. (Same As: Coumadin) WASTE: F/P - P Waste Black; E - P Waste Black [facility] 3:Reproduc tive risk Hazardous Drug -- Refer to safe handling procedure PPE Matrix Samira Majano warfarin 04-24 23:00: 00 No Notes: Nurse to ensure documentat ion of patient education per anticoagul ation policy. Avoid large intake of vitamin-K containing foods diet. (Same As: Coumadin) WASTE: F/P - P Waste Black; E - P Waste Black [facility] Group 3:Reproduc tive risk Hazardous Drug -- Refer to safe handling procedure PPE Matrix Samira Majano heparin additive 25,000 unit [14 unit/kg/hr] + Premix Diluent Sodium Chloride 0.45% 500 mL 04-21 13:23: 00 No Notes: Total Concentrat ion = 50 unit/ ml Total volume = 500 ml Send Med Request 2 hours prior to next bag Samira Majano cefdinir 04-16 00:00: 00 No Notes: (Same As: Omnicef) Samira Majano cefdinir 04-15 17:40: 00 No 300 mg, Route: PO, Drug form: CAP, [id number], Dosing Weight 68.1, kg, Priority: NOW, Start date: 04/15/22 11:40:00 PIN DRAFTER, Duration: 4 day, Stop date: 04/18/22 23:40:00 PIN DRAFTER Samira Majano normal saline 0.9% IV 250 mL 04-15 07:01: 00 No 250 mL, Rate: 250 ml/hr, Infuse over: 1 hr, Route: IV, Dosing Weight 68.1 kg, Total Volume: 250, Start date: 04/15/22 1:01:00 PIN DRAFTER, Duration: 30 day, Stop date: 05/15/22 1:00:00 PIN DRAFTER, BSA: 1.83 m2, 0 Samira Majano aspirin 325 mg tablet 04-14 22:51: 00 No Notes: Take with food. Samira Kingann finasteride 04-13 21:30: 00 No Notes: Not commercial ly available Please see specific instructio ns from Pharmacy for [facility] Hazardous Drug Group 3:Reproduc tive risk Hazardous Drug -- Refer to safe handling procedure PPE Matrix Samira Majano cefTRIAXone + sterile water 10 mL 04-12 21:00: 00 No Notes: (Same As: Rocephin). MEDICATION WASTE Product Size: 1000 mg Product Wasted: ___ mg Samira Majano acetaminoph en 04-12 16:44: 00 No Notes: Do not exceed 4 gm/day. (Same as: Tylenol) Saimra Majano Lactated Ringers IV 1,000 mL 04-12 13:18: 00 No 1,000 mL, Rate: 75 ml/hr, Infuse over: 13.3 hr, Route: IV, Dosing Weight 68.1 kg, Total Volume: 1,000, Priority: STAT, Start date: 04/12/22 7:18:00 PIN DRAFTER, Duration: 1 day, Stop date: 04/13/22 7:17:00 PIN DRAFTER, BSA: 1.83 m2, 0 Samira Majano heparin 5000 units/mL injectable solution 04-10 22:00: 00 No Notes: porcine heparin Samira Majano Lactated Ringers IV 1,000 mL 04-10 15:13: 00 No 1,000 mL, Rate: 75 ml/hr, Infuse over: 13.3 hr, Route: IV, Dosing Weight 68.1 kg, Total Volume: 1,000, Priority: STAT, Start date: 04/10/22 9:13:00 PIN DRAFTER, Duration: 30 day, Stop date: 05/10/22 9:12:00 PIN DRAFTER, BSA: 1.83 m2, 0 Samira Majano Lactated Ringers IV 1000 mL 04-07 17:30: 00 No 1,000 mL, Rate: 75 ml/hr, Infuse over: 13.3 hr, Route: IV, Dosing Weight 68.1 kg, Total Volume: 1,000, Priority: STAT, Start date: 04/07/22 11:30:00 PIN DRAFTER, Duration: 1 day, Stop date: 04/08/22 11:29:00 PIN DRAFTER, BSA: 1.83 m2 Samira Majano heparin additive 25,000 unit [14 unit/kg/hr] + Premix Diluent Sodium Chloride 0.45% 500 mL 04-07 03:56: 00 No Notes: Total Concentrat ion = 50 unit/ ml Total volume = 500 ml Send Med Request 2 hours prior to next bag Samira Majano PlasmaLyte A PH-7.4 1,000 mL 04-05 17:40: 00 No Notes: (Same as: Isolyte S PH7.4, Normosol-R PH 7.4, Plasma-Lyt e A ) Samira Maajno tamsulosin 04-04 03:00: 00 No 0.4 mg, Route: PO, Drug form: CAP, Bedtime, Dosing Weight 68.182, kg, Start date: 04/03/22 21:00:00 PIN DRAFTER, Duration: 30 day, Stop date: 05/02/22 21:00:00 PIN DRAFTER Samira Majano melatonin 3 mg oral tablet 04-04 02:43: 00 No Notes: (Same as: Melatonin) Samira Majano senna 8.6 mg oral tablet 04-03 23:00: 00 No Notes: (Same as: Senokot) Samira Majano polyethylen e glycol 3350 04-03 23:00: 00 No Notes: Dissolve in 8 oz of water or juice. (Same as: Miralax) Samira Majano SMOG Enema 04-03 16:18: 00 No 300 ml, Route: SC, Drug Form: CLAUS, Dosing Weight 68.182, kg, ONCE, NOW, Start date: 04/03/22 10:18:00 PIN DRAFTER, Stop date: 04/03/22 10:18:00 PIN DRAFTER, 0 Samira Majano finasteride 04-03 15:00: 00 No Notes: Not commercial ly available Please see specific instructio ns from Pharmacy [facility] Hazardous Drug Group 3:Reproduc tive risk Hazardous Drug -- Refer to safe handling procedure PPE Matrix Samira Majano ferrous gluconate 324 mg oral tablet 04-03 15:00: 00 No Notes: Give with food. iron elemental 38 lq=588 mg as ferrous sulfate Dose=___mg elemental iron Samira Majano thiamine 04-03 15:00: 00 No Notes: (Same As: Vitamin B1) Samira Majano folic acid 04-03 15:00: 00 No Notes: (Same as: Folvite) Samira Kingann Tylenol Extra Strength 500 mg oral tablet 04-02 19:18: 00 No 1,000 mg = 2 tab, PO, Q4H, PRN PRN, 0 Refill(s) Abdielkam Kingann multivitami n 04-02 19:17: 00 No 1 tab, PO, Daily, 0 Refill(s) Abdielkam zahra [place] warfarin 2 mg oral tablet 04-02 19:16: 00 No PO, TAKE 1 TAB ORALLY EVERY WED, WED, , SAT AND SUN., 0 Refill(s) Abdielkam zahra Majano tamsulosin 0.4 mg oral capsule 04-02 19:14: 00 Yes 0.4 mg = 1 cap, PO, Bedtime, 0 Refill(s) Abdielkam zahra Majano warfarin 2 mg oral tablet 04-02 19:14: 00 No PO, TAKE 2 TAB ORALLY EVERY MON AND FRI., 0 Refill(s) Samira Majano polyethylen e glycol 3350 oral powder for reconstitut ion 04-02 19:13: 00 Yes 17 gm, PO, Daily, 0 Refill(s) Abdielkam zahra Majano losartan 100 mg oral tablet 04-02 19:12: 00 No 100 mg = 1 tab, PO, Daily, 0 Refill(s) Abdielkam zahra Majano metoprolol tartrate 100 mg oral tablet 04-02 19:12: 00 No 100 mg = 1 tab, PO, BID, 0 Refill(s) Samira Majano Aquaphor Healing topical ointment 04-02 19:11: 00 No 1 appl, TOP, Daily, 0 Refill(s) Samira Majano finasteride 5 mg oral tablet 04-02 19:10: 00 Yes 5 mg = 1 tab, PO, Daily, 0 Refill(s) Samira Majano ferrous gluconate 324 mg oral tablet 04-02 19:08: 00 No 324 mg = 1 tab, PO, BID, 0 Refill(s) Samira Majano metoprolol tartrate 04-02 15:00: 00 No Notes: (Same as: Lopressor) 12.5 mg=1/2 X 25 mg TAB Samira Kingann acetaminoph en 04-02 04:00: 00 No Notes: Max acetaminop hen 4000 mg/day (4 gm/day). (Same as: Tylenol Extra Strength) Samira zahra Melecio gabapentin 04-01 22:00: 00 No Notes: (Same as: Neurontin) Samira zahra [place] oxyCODONE immediate release 04-01 21:33: 00 No Notes: (Same as: Roxicodone ) Samira Kingann docusate-se nna 50 mg-8.6 mg oral tablet 04-01 15:00: 00 No Notes: (Same as Senokot-S) Equiv. to [place] e. Samira zahra Melecio Keppra 500 mg oral tablet 04-01 15:00: 00 No Notes: (Same as:Keppra) Samira zahra [place] aspirin 04-01 15:00: 00 No Notes: Do not crush or chew. (Same As: Ecotrin) Samira Kingann MiraLax 04-01 14:34: 00 No Notes: Dissolve in 8 oz of water or juice. (Same as: Miralax) Samira zahra Majano Isolyte S PH 7.4 1,000 mL 04-01 14:32: 00 No Notes: (Same as: Isolyte S PH7.4, Normosol-R PH 7.4, Plasma-Lyt e A ) Samira Majano remove patch 03-31 20:00: 00 No Notes: Remove patch 12 hours after applicatio n each day. Samira Majano labetalol 03-31 19:45: 00 No 20 mg, 4 mL, Route: IVP, Drug form: INJ, Q2H, Dosing Weight 68.182, kg, PRN Other -See Comment, Priority: STAT, Start date: 03/31/22 13:45:00 PIN DRAFTER, Duration: 3 doses or times, Stop date: Limited # of times, 0 Samira Majano lidocaine 4% topical film 03-31 08:00: 00 No Notes: Patch is applied to intact skin to cover painful area for up to 12 hours in a 24-hour period (12 hours on and 12 hours off). Please indicate the location of applicatio n site. Site 1: Remove old patch before applicatio n of new patch. (Same as Aspercreme Lidocaine Patch) Abdielkam zahra Majano acetaminoph en 03-31 07:35: 00 No Notes: Max acetaminop hen 4000 mg/day (4 gm/day). (Same as: Tylenol Extra Strength) Memkam Majano gabapentin 03-31 07:35: 00 No Notes: (Same as: Neurontin) Memkam Majano tramadol 03-31 07:35: 00 No Notes: Not to exceed 400mg/day. (Same As: Ultram) Samira Majano esmolol 2500 mg in NS 250 mL (Titrate.) IV 2,500 mg 03-31 03:09: 00 No Notes: (Same as: Brevibloc) 10 mg/ml conc. Memkam Majano esmolol 03-31 03:01: 00 No Notes: (Same as: Brevibloc) Samira Majano Omnipaque 350 mg/mL 03-31 01:42: 00 No 75 mL, Route: IVP, Drug Form: SOLN, Dosing Weight 68.182, kg, ONCALL, STAT, Start date: 03/30/22 19:42:00 PIN DRAFTER, Duration: 1 doses or times, Dose = 2.2ml/kg, Max dose = 100ml -- "To be infused by Radiology Staff ONLY" Samira Majano acetaminoph en 03-30 18:38: 00 No 650 mg, Route: PO, Drug form: TAB, ONCE, Dosing Weight 68.182, kg, Priority: STAT, Start date: 03/30/22 12:38:00 PIN DRAFTER, Stop date: 03/30/22 12:38:00 PIN DRAFTER Samira Majano Vital Signs Vital Name Observation Time Observation Value Comments S ource Temperature Oral (F) 2022-05-12 21:55:18 98.5 F [facility] Respitory Rate 2022-05-12 20:00:00 [facility] Systolic (mm Hg) 2022-05-12 20:00:00 [facility] Diastolic (mm Hg) 2022-05-12 20:00:00 [facility] Respitory Rate 2022-05-12 19:00:00 [facility] [place] Respitory Rate 2022-05-12 18:00:00 [facility] [place] Systolic (mm Hg) 2022-05-12 18:00:00 [facility] Diastolic (mm Hg) 2022-05-12 18:00:00 [facility] Systolic (mm Hg) 2022-05-12 17:00:00 [facility] Diastolic (mm Hg) 2022-05-12 17:00:00 [facility] Temperature Oral (F) 2022-05-12 14:43:40 98.9 F [facility] Temperature Oral (F) 2022-05-12 12:02:40 98.1 F [facility] Respitory Rate 2022-05-04 13:00:00 [facility] [place] Systolic (mm Hg) 2022-05-04 13:00:00 [facility] [place] Diastolic (mm Hg) 2022-05-04 13:00:00 [facility] Respitory Rate 2022-05-04 12:00:00 [facility] [place] Systolic (mm Hg) 2022-05-04 12:00:00 [facility] Diastolic (mm Hg) 2022-05-04 12:00:00 [facility] [place] Respitory Rate 2022-05-04 11:00:00 [facility] Systolic (mm Hg) 2022-05-04 11:00:00 [facility] [place] Diastolic (mm Hg) 2022-05-04 11:00:00 [facility] Systolic (mm Hg) 2022-05-04 06:00:00 [facility] Diastolic (mm Hg) 2022-05-04 06:00:00 [facility] Respitory Rate 2022-05-04 06:00:00 [facility] [place] Systolic (mm Hg) 2022-05-04 05:00:00 [facility] Diastolic (mm Hg) 2022-05-04 05:00:00 [facility] Respitory Rate 2022-05-04 05:00:00 [facility] Systolic (mm Hg) 2022-05-04 04:00:00 [facility] [place] Diastolic (mm Hg) 2022-05-04 04:00:00 [facility] Respitory Rate 2022-05-04 04:00:00 [facility] Heart Rate 2022-05-03 13:24:42 [facility] Temperature Oral (F) 2022-05-03 09:28:44 98.2 F [facility] Temperature Oral (F) 2022-05-03 06:04:07 98 F [facility] [place] Temperature Oral (F) 2022-05-02 01:53:32 98.1 F [facility] [place] Heart Rate 2022-04-28 13:30:00 [facility] [place] Heart Rate 2022-04-28 10:49:26 [facility] [place] Height 2022-04-07 04:14:00 175.26 cm [facility] [place] Weight 2022-04-07 04:14:00 [facility] BMI Calculated 2022-04-07 04:14:00 [facility] [place] Heart Rate 2022-04-06 05:07:45 [facility] Temperature Oral (F) 2022-04-06 05:07:14 98.2 F [facility] [place] Systolic (mm Hg) 2022-04-06 05:07:11 [facility] Diastolic (mm Hg) 2022-04-06 05:07:11 [facility] Heart Rate 2022-04-06 05:07:11 [facility] Systolic (mm Hg) 2022-04-06 03:51:00 [facility] [place] Diastolic (mm Hg) 2022-04-06 03:51:00 [facility] Heart Rate 2022-04-06 03:51:00 [facility] Systolic (mm Hg) 2022-04-06 01:12:02 [facility] [place] Diastolic (mm Hg) 2022-04-06 01:12:02 [facility] Temperature Oral (F) 2022-04-06 01:11:58 98.5 F [facility] Temperature Oral (F) 2022-04-05 13:45:48 98.2 F [facility] Respitory Rate 2022-04-05 10:57:07 [facility] Respitory Rate 2022-04-05 06:17:11 [facility] Respitory Rate 2022-04-05 02:10:13 [facility] [place] Height 2022-03-30 14:31:00 175.26 cm [facility] [place] BMI Calculated 2022-03-30 14:31:00 [facility] Weight 2022-03-30 14:31:00 [facility] Encounters Start Date/Time End Date/Time Encounter Type Admission Type Attending [facility] Care Facility Care Department Encounter ID Source 2022-08-26 11:26:15 Outpatient [facility] [id number] [facility] 2022-08-25 16:10:11 Outpatient [facility] ER [id number] [facility] 2022-08-21 15:15:14 Outpatient [facility] ER [id number] [facility] 2022-07-29 07:36:52 Outpatient [facility] ER [id number] [facility] 2022-07-14 07:20:54 Outpatient [facility] ER [id number] [facility] 2022-07-02 11:00:08 Outpatient [facility] ER [id number] [facility] 2022-06-10 12:42:18 Outpatient [facility] ER [id number] [facility] 2022-06-04 10:41:08 Outpatient [facility] ER [id number] [facility] 2022-05-22 13:20:12 Outpatient [facility] ER [id number] [facility] 2022-04-09 09:11:52 Outpatient [facility] ER [id number] [facility] 2022-04-08 06:19:39 Outpatient [facility] ER [id number] [facility] 2022-04-07 10:59:11 Outpatient [facility] ER [id number] [facility] 2022-03-31 12:56:40 Outpatient [facility] [id number] [facility] 2022-03-30 08:54:52 Emergency [facility] [id number] [facility] 2022-06-11 10:45:00 2022-06-11 10:45:00 Outpatient [facility] [id number] [facility] 2022-03-30 14:30:22 2022-05-13 01:13:00 Inpatient TIFFANIE [facility] [id number] Samira Kingann 2022-03-31 15:02:00 2022-05-12 19:13:00 Inpatient BEL YANEZ [facility] [id number] [facility] 2022-04-28 09:00:00 2022-04-28 09:00:00 Outpatient BRIANA KERN [facility] [id number] [facility] Results Test Description Test Time Test Comments Results Result Co mments Source [facility]2023-02-27 08:02:00* Test Item Value Reference Range Interpretation Comme nts PTH Intact (test code = PTH Intact) 35.1 18.4-80.1 [facility]2023-02-22 07:24:00* Test Item Value Reference Range Interpretation Comme nts Magnesium Lvl (test code = M agnesium Lvl) 2.6 1.8-2.4 [id number] 07:24:00* Test Item Value Reference Range Interpretation Comme nts WBC (test code = WBC) 5.8 3.7-10.4 [facility]2023-02-22 07:24:00* Test Item Value Reference Range Interpretation Comme nts Ca Ion WB (test code = Ca Ion WB) 1.33 1.05-1.25 [facility]2023-02-21 06:22:00* Test Item Value Reference Range Interpretation Comme nts Glucose Lvl (test code = Glucose Lvl) 115 70-99 [facility]IecahyaCQIAPQVONA4184-30-06 06:22:00* Test Item Value Reference Range Interpretation Comme nts PT (test code = PT) 13.4 s 12.0-14.7 [facility]2023-02-20 06:09:00* Test Item Value Reference Range Interpretation Comme nts Phosphorus (test code = Phosphorus) 3.0 2.5-4.5 [facility] HospitalZhzcwusYWRRKERFDH0065-69-18 06:09:00* Test Item Value Reference Range Interpretation Comme nts Segs (test code = Segs) 78.0 45.0-75.0 [facility]2023-02-20 06:09:00* Test Item Value Reference Range Interpretation Comme nts Ca Ion WB (test code = Ca Ion WB) 1.29 1.05-1.25 [facility] [id number] 07:06:00* Test Item Value Reference Range Interpretation Comme nts Magnesium Lvl (test code = M agnesium Lvl) 2.3 1.8-2.4 [facility] HospitalBmueambZIEJGCTKFD9090-79-18 07:06:00* Test Item Value Reference Range Interpretation Comme nts Segs (test code = Segs) 81.1 45.0-75.0 [facility] [id number] 10:43:00* Test Item Value Reference Range Interpretation Comme nts Glucose Lvl (test code = Glucose Lvl) 98 70-99 [facility] HospitalDdqehdpHCDYBQBOWM4776-60-25 10:43:00* Test Item Value Reference Range Interpretation Comme nts Segs (test code = Segs) 76.8 45.0-75.0 [facility] [id number] 09:37:00* Test Item Value Reference Range Interpretation Comme nts Magnesium Lvl (test code = M agnesium Lvl) 2.4 1.8-2.4 [facility]2023-02-17 09:37:00* Test Item Value Reference Range Interpretation Comme nts Ca Ion WB (test code = Ca Ion WB) 1.28 1.05-1.25 [facility] HospitalTvkhriuQHEAPWGGHM9126-03-49 07:00:00* Test Item Value Reference Range Interpretation Comme nts Basophils # (test code = Basophils #) 0.1 See_Comment [Automated messa ge] The system which generated this result transmitted reference range: <=0.2. The reference range was not used to interpret this result as normal/abnormal. [facility] CenterPauacycHXWQPWNMLG6602-01-35 21:33:00* Test Item Value Reference Range Interpretation Comme nts Coronavirus (COVID-19) PRAKASH (test code = Coronavirus (COVID-19) PRAKASH) Not Detected (04/29/22 3:33 PM) [facility]2023-02-15 07:34:00* Test Item Value Reference Range Interpretation Comme nts Ca Ion WB (test code = Ca Ion WB) 1.30 1.05-1.25 [facility] CenterCARDIAC [id number] 07:34:00* Test Item Value Reference Range Interpretation Comme nts HS Troponin I (test code = H S Troponin I) 8 [facility]NgphtkbLGEGIWNBHN1061-51-76 16:38:00* Test Item Value Reference Range Interpretation Comme nts ACT (TEG) Rapid (test code = ACT (TEG) Rapid) 105 s 86-118 [facility] [id number] 15:02:00* Test Item Value Reference Range Interpretation Comme nts RBC product (test code = RBC product) Product available (04/28/22 9:02 AM) [facility] [id number] 09:13:00* Test Item Value Reference Range Interpretation Comme nts ABO/Rh (test code = ABO/Rh) B POS [facility] HospitalPhlrmdoOFKBHFWLZH4142-97-06 03:18:00* Test Item Value Reference Range Interpretation Comme nts ACT (TEG) Rapid (test code = ACT (TEG) Rapid) 97 s 86-118 [facility] AND [id number] 01:30:00* Test Item Value Reference Range Interpretation Comme nts UA Color (test code = UA Color) Yellow *NA*(04/27/22 7:30 PM) [facility] HospitalJbpqurhUKUBKLFHTK4936-10-12 09:37:00* Test Item Value Reference Range Interpretation Comme nts Basophils # (test code = Basophils #) 0.1 See_Comment [Automated Radicoa ge] The system which generated this result transmitted reference range: <=0.2. The reference range was not used to interpret this result as normal/abnormal. [facility] CenterJukedocsCHEM [id number] 12:32:00* Test Item Value Reference Range Interpretation Comme nts Total Protein (test code = T otal Protein) 6.1 6.4-8.4 [facility] HospitalSwqppwhXUHXEFYGDI5741-00-90 20:09:00* Test Item Value Reference Range Interpretation Comme nts ACT (TEG) Rapid (test code = ACT (TEG) Rapid) 89 s 86-118 [facility] AND [id number] 14:26:00* Test Item Value Reference Range Interpretation Comme nts UA Color (test code = UA Color) Yellow *NA*(04/20/22 8:26 AM) [facility] [id number] 09:53:00* Test Item Value Reference Range Interpretation Comme nts Total Protein (test code = T otal Protein) 5.8 6.4-8.4 [facility] CenterLEVOFLOXACIN:SUSC:PT:ISOLATE:ORDQN:[id number] 20:31:00* Test Item Value Reference Range Interpretation Comme nts Culture: Urine (test code = Culture: Urine) >100,000 CFU/mL Escherichia coli [facility] AND [id number] 18:53:00* Test Item Value Reference Range Interpretation Comme nts UA Sq Epi (test code = UA Sq Epi) Occasional /LPF [facility] HospitalCtypkomJQNVRYTFXE6921-91-86 11:22:00* Test Item Value Reference Range Interpretation Comme nts RBC Morph (test code = RBC Morph) Normal (04/12/22 5:22 AM) [facility]2023-01-22 14:43:00* Test Item Value Reference Range Interpretation Comme nts Glucose Lvl (test code = Glucose Lvl) 96 70-99 [facility] HospitalJaajjopCTGRXKJXDD3956-34-45 14:43:00* Test Item Value Reference Range Interpretation Comme nts PT (test code = PT) 13.6 s 12.0-14.7 [facility] HospitalMqwvlgyLCLEBXSGII1120-59-54 07:53:00* Test Item Value Reference Range Interpretation Comme nts PT (test code = PT) 19.5 s 12.0-14.7 [facility] [id number] 09:50:00* Test Item Value Reference Range Interpretation Comme nts Vitamin D, 25-OH, Total (ines t code = Vitamin D, 25-OH, Total) 32 [facility] HospitalByneejoVNRXJXUSIZ9873-91-36 09:50:00* Test Item Value Reference Range Interpretation Comme nts Segs (test code = Segs) 81.9 45.0-75.0 [facility] [id number] 19:55:00* Test Item Value Reference Range Interpretation Comme nts U Creatinine (test code = U Creatinine) 67.60 [facility]2023-01-18 06:51:00* Test Item Value Reference Range Interpretation Comme nts Glucose Lvl (test code = Glucose Lvl) 100 70-99 [facility] HospitalFamrivbNQLJJEUQPD1739-92-54 11:01:00* Test Item Value Reference Range Interpretation Comme nts Segs (test code = Segs) 81.1 45.0-75.0 [facility] [id number] 16:26:00* Test Item Value Reference Range Interpretation Comme nts Antibody Scrn (test code = Antibody Scrn) Negative (03/30/22 10:26 AM) [facility] [id number] 16:24:00* Test Item Value Reference Range Interpretation Comme nts FFP product (test code = FFP product) Product available (03/30/22 10:24 AM) [facility] [id number] 16:23:00* Test Item Value Reference Range Interpretation Comme nts Cryo product (test code = Cryo product) Modification Required (03/30/22 10:23 AM) [facility] ChildrenPbfoacwMPKPDRQKTZ8221-31-32 15:45:00* Test Item Value Reference Range Interpretation Comme nts Coronavirus (COVID-19) PRAKASH (test code = Coronavirus (COVID-19) PRAKASH) Not Detected (03/30/22 9:45 AM) [facility] HospitalDotahteAOZASZGHMA0228-17-46 14:59:00* Test Item Value Reference Range Interpretation Comme nts ACT (TEG) Rapid (test code = ACT (TEG) Rapid) 136 s 86-118 [facility] ChildrenQccyfbkKUXTYRMKBR5557-04-08 14:59:00* Test Item Value Reference Range Interpretation Comme nts Influ A PRAKASH (test code = Influ A PRAKASH) Not Detected (03/30/22 8:59 AM) [facility] Notes Date/Time Note Provider Source 2022-05-04 17:18:00 EXAM: XR PELVIS 3 EWS DATE: 05/04/2022 17:18 INDICATION: Pelvic fracture follow-up COMPARISON: Pelvic radiographs 04/14/2022 TECHNIQUE: AP, inlet, and outlet views of the pelvis FINDINGS: Evaluation of limited due to patient's generalized diminished bone mineral density. No displaced fracture identified. 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 No pubic symphysis or sacroiliac joint diastasis. 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 Mild arterial calcification. Multiple surgical clips overlie the right inguinal region. IMPRESSION: Satisfactory alignment of the pelvic ring. Questionable nondisplaced fracture of S3 seen on prior CT is not radiographically visible. [facility] 2022-05-04 01:48:50 EXAM: CT BRAIN WITHO UT CONTRAST DATE: 05/04/2022 INDICATION: - assess for post op hemorrhage prior to starting heparin. COMPARISON: CT brain without contrast on 04/28/2022, and 05/01/2022. TECHNIQUE: Axial CT images of the brain were obtained. Sagittal and coronal reformats. IV contrast: None DLP: Refer to CT protocol form FINDINGS: Interval removal of extra-axial drainage catheters. No evidence of extra-axial hemorrhage. Again noted mixed density collection is present. Convexities, however overall decrease in size when compared to prior. Again noted chronic remodeling of the frontal lobe contours. Again visualized bilateral fuad hole craniotomies, with associated postoperative changes. IMPRESSION: Status post bilateral craniotomy, no evidence of new or recurrent hemorrhage. [facility] 2022-05-01 05:56:43 EXAMINATION: CT head without contrast DATE: 05/01/2022 INDICATION: Subdural hemorrhage. FINDINGS: Noncontrast CT images of the head are compared to study dated 04/28/2022. Over the interval, extra-axial drainage catheters have been removed.. There is no new extra-axial hemorrhage. Mixed density collections present over both convexities, similar in size to the comparison. There is chronic remodeling of the frontal lobe contours, but the size of the collections is smaller than on the baseline study of 04/28/2022. Postoperative changes of viral lateral of fuad hole craniotomy again noted. IMPRESSION: Interval removal of extra-axial drainage catheters. No new or recurrent hemorrhage. [facility] 2022-04-29 00:59:00 EXAM: XR CHEST 1 VIE W DATE: 04/29/2022 0:59 INDICATION: - Respiratory distress. TECHNIQUE: Chest 1 view FINDINGS: Comparison is made to March 30. Cardiomediastinal silhouette and postoperative changes are stable. A left subclavian ICD remains in place. There is mild subsegmental atelectasis at the left base. The lungs are otherwise clear. No pleural effusions. IMPRESSION: Mild left basilar subsegmental atelectasis. [facility] 2022-04-28 11:58:00 EXAM: CT BRAIN WITHO UT CONTRAST DATE: 04/28/2022 INDICATION: - Post-op, Get on way to 7 ICU. COMPARISON: CTs 04/28/2022, 04/27/2022, 04/23/2022 TECHNIQUE: Axial CT images of the brain were obtained. Sagittal and coronal reformats. IV contrast: None DLP: Refer to CT protocol form FINDINGS: New bilateral frontal fuad holes with subdural drainage catheters. The bilateral frontal subdural hemorrhagic collections are slightly smaller. Mild improvement in mass effect on both frontal lobes. No midline shift or herniation. No new hemorrhage. IMPRESSION: New bilateral frontal subdural drainage catheters and partial evacuation of the heterogeneous subdural hematomas. Improved mass effect. [facility] 2022-04-28 03:43:15 EXAM: CT BRAIN WITHO UT CONTRAST DATE: 04/28/2022 INDICATION: ' - asessement of b/l cSDH possible surgical intervention'. COMPARISON: Head CTs 04/27/2022, 04/23/2022, 04/22/2022 TECHNIQUE: Noncontrast axial CT images were acquired [...] The ventricles are unchanged in caliber and configuration. IMPRESSION: Unchanged thick bilateral frontal subdural hemorrhages with mass effect but no herniation. [facility] 2022-04-27 15:31:07 EXAM: CT BRAIN WITHO UT CONTRAST DATE: 04/27/2022 15:31 INDICATION: Acute cognitive change - altered on heparin infusion COMPARISON: TECHNIQUE: Routine axial images of the brain were obtained without contrast. IV contrast: None. FINDINGS: No significant interval change when compared to the preceding exam. Heterogeneous mixed density subdural collections are seen overlying the bilateral cerebral convexities measuring up to 16 mm in thickness along the bilateral frontal convexities. Persistent mass effect on the cerebral hemispheres. Stable minimal midline shift to the left. Persistent effacement of the ventricular system and cerebral sulci. Stroud-white differentiation is maintained. The cerebellar tonsils remain above the foramen magnum. IMPRESSION: Stable mixed density cerebral convexity subdural hematomas with persistent mass effect on the cerebral hemispheres. [facility] 2022-04-23 04:11:07 EXAM: CT BRAIN WITHO UT CONTRAST DATE: 04/23/2022 INDICATION: - bilateral SDHs. COMPARISON: CT brain 04/22/2022 TECHNIQUE: Axial CT images of the brain were obtained. Sagittal and coronal reformats. IV contrast: None DLP: Refer to CT protocol form FINDINGS: There has been no significant interval change from prior day CT. Heterogenous subdural collections are seen over the bilateral cerebral convexities measuring 11 mm the left, 12 mm on the right. No new areas of hemorrhage. Unchanged minimal leftward midline shift. There is persistent mass effect on the bilateral cerebral convexities, predominantly to the frontal lobes with persistent effacement of the ventricular system and basal cisterns. Stroud-white matter differentiation is maintained. Brain parenchymal volume volume loss is evident in the bilateral cerebellar hemispheres Visualized paranasal sinuses and mastoid air cells are clear. IMPRESSION: No gross significant changes noted as compared to prior study. * Unchanged heterogenous bilateral cerebral convexity subdural hematomas with persistent mass effect in bilateral frontal lobes, as detailed above. [facility] 2022-04-22 03:47:49 EXAMINATION: CT head without contrast DATE: 04/22/2022 INDICATION: subdural hematoma. Stability scan. On heparin. FINDINGS: Noncontrast CT images of the head compared to study dated 04/20/2022 and baseline study dated 03/30/2022. Over the most recent interval, there has been no important change. Mixed density subdural collections are present over both convexities measuring 13 mm on the right and 12 mm on the left. There are no new areas of hemorrhage. There is stable mild right left midline shift, and is bilateral mass effect on the hemispheres the distortion of the contour of the convexities and some partial collapse of the ventricular system. Basilar cisterns remain effaced. The brain parenchyma itself remains unremarkable. There is at least moderate volume loss evident in the cerebellar hemispheres with enlargement of the extra-axial spaces. The nasal sinuses and mastoids are clear. IMPRESSION: Stable mixed density subdural hematomas with persistent mass effect. [facility] 2022-04-20 04:00:15 EXAM: CT BRAIN WITHO UT CONTRAST DATE: 04/20/2022 4:10 AM INDICATION: - CTH for possible starting heparin. COMPARISON: CT brain 04/08/2022 TECHNIQUE: Axial CT images of the brain were obtained. Sagittal and coronal reformats. IV contrast: None DLP: Refer to CT protocol form FINDINGS: Evaluation of acute on chronic bilateral subdural hematomas. Greatest maximal transverse diameter of the right subdural hematoma is 13 mm, greatest transverse diameter of the left subdural hematoma is 11 mm. Unchanged 3 mm leftward midline shift No new acute intracranial hemorrhage or infarct. The ventricles are normal in size and configuration. The skull base, calvarium, and included facial bones are unremarkable. The paranasal sinuses are predominantly clear. IMPRESSION: 1. Evolving bilateral subdural hematomas which appear unchanged in size with associated 3 mm leftward midline shift. 2. No interval adverse change. [facility] 2022-04-14 23:00:00 EXAM: XR PELVIS 3 EWS DATE: 04/14/2022 19:28 INDICATION: - sacral fracture, ap, inlet, outlet COMPARISON: Pelvis CT 03/30/[address] 03/30/2022 TECHNIQUE: AP, inlet and outlet views of the pelvis FINDINGS: Sacral nondisplaced fracture is not visualized on this study. No other acute fractures or malalignment. No pubic symphysis or sacroiliac joint diastasis. No soft tissue abnormality is identified. IMPRESSION: 1. Sacral nondisplaced fracture is not visualized. 2. Normal alignment of the pelvis and sacroiliac joints. [facility] 2022-04-14 03:57:00 Finding of partially occlusive acute deep vein thrombus in left internal jugular vein was discussed with Nafisa Garner NP on April 14, 2022, 10:19 AM EXAM: US LEFT UPPER EXTREMITY VENOUS DOPPLER DATE: 04/13/2022 18:36 INDICATION: Pain, Limb - swelling ADDITIONAL INFORMATION: None. COMPARISON: None. TECHNIQUE: Multiplanar grayscale, color Doppler, and spectral Doppler ultrasound of the left upper extremity veins. FINDINGS: Left Upper Extremity Veins: Internal Jugular: Partially occlusive acute deep vein thrombosis Subclavian: Patent. Axillary: Patent. Brachial: Patent. Basilic: Patent. Cephalic: Patent. Other: None. IMPRESSION: 1. Partially occlusive acute deep vein thrombus in left internal jugular vein. [facility] 2022-04-08 21:38:58 EXAM: CT BRAIN WITHO UT CONTRAST DATE: 04/08/2022 20:00 INDICATION: - reassess new hemorrhages COMPARISON: Multiple CTs of the head since 06 April 2015, the most recent is from today TECHNIQUE: Contiguous CT images of the head were obtained from the [...] the subdural hematoma on the left measures approximately 11 mm. The sulci and the ventricles are normal for the patient's age. The stroud-white matter differentiation is preserved. No brain parenchymal lesions are seen. 3 mm leftward midline shift. The visible paranasal sinuses and skull base are unremarkable. IMPRESSION: 1. Stable acute on chronic subdural hematomas on both sides. 2. 3 mm leftward midline shift. [facility] 2022-04-08 13:34:15 EXAM: CT BRAIN WITHO UT CONTRAST DATE: 04/08/2022 INDICATION: - eval ICH with supratherapeutic on heparin. COMPARISON: Head CT 04/06/2022. TECHNIQUE: Axial CT images of the brain were obtained. Sagittal and coronal reformats. IV contrast: None DLP: Refer to CT protocol form FINDINGS: Bilateral mixed predominantly low attenuation subdural collection extending along the falx and tentorium leaflets are stable in size measuring up to 15 mm retrogrades and 7 mm on the left. Local mass effect on the adjacent brain parenchyma and 3 mm leftward midline shift is stable. No new acute parenchymal hemorrhage or acute territorial infarction. Ventricles are stable in size and configuration. The skull base, calvarium, and included facial bones are unremarkable. The paranasal sinuses are predominantly clear. IMPRESSION: No adverse change. Stable bilateral subdural hematoma and associated 3 mm leftward midline shift. [facility] 2022-04-06 12:25:00 EXAM: CT BRAIN WITHO UT CONTRAST DATE: 04/06/2022 INDICATION: - follow up on prior SDH;. COMPARISON: Comparison was performed with prior CT scan dated March 30, 2022. TECHNIQUE: Axial CT images of the brain were obtained. Sagittal and coronal reformats. IV contrast: None DLP: Refer to CT protocol form FINDINGS: CT scan examination stable bilateral cerebral convexities subdural hematohygromas, partially extending to the falx and tectorial leaflets, resulting in effacement of adjacent sulci. Stable minimal 3 mm leftward midline shifting. Otherwise, negative for intracranial mass effect progression, hydrocephalus or brain herniation Unchanged diffuse cerebellar volume loss. Bilateral intraocular lens prothesis. The paranasal sinuses and mastoid air cells are grossly clear. The skull base, calvarium, and included facial bones are unremarkable. IMPRESSION: No interval adverse change.. * Stable bilateral cerebral convexities subdural hematohygromas, resulting in effacement of adjacent sulci and minimal 3 mm leftward midline shifting. * Negative for intracranial mass effect progression, hydrocephalus or brain herniation [facility] 2022-03-30 19:30:00 EXAM: CTA CHEST WITH CONTRAST EXAM: CTA ABDOMEN AND PELVIS WITH CONTRAST DATE: 03/30/2022 14:39 INDICATION: - eval for dissection ADDITIONAL INFORMATION: None. COMPARISON: None. TECHNIQUE: Volumetric CTA of the chest, abdomen and pelvis is acquired following intravenous administration of contrast. Axial, coronal and sagittal images, including MIPS, are provided. FINDINGS: [employer] Operator: Noncontributory. VASCULAR: Aorta: Postoperative changes aVR with ascending aorta/hemiarch graft repair. Dissection starts just above the graft extending into the innominate artery, visualized right internal carotid artery as well as left subclavian artery. The dissection extends into the proximal left external iliac artery. There is a fenestration at the aortic arch, at the level of the renal arteries and at the distal endpoint. The false lumen is partially thrombosed. The proximal descending aorta measures 4.8 cm (series 9 image 91) and the arch 4.5 cm (series 9 image 88). The descending aorta measures 4.4 x 4.6 cm (series 6 image 137) and the false lumen measures 2.8 cm. The infrarenal aorta is measuring 3.6 x 4.1 cm (series 6 image 350) with the false lumen measuring 2.4 cm. 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 The dissection extends into the visualized right internal carotid artery measuring 1.6 cm (series 6 image 44) with significant compression of the true lumen. There is mild compression at the origin of the left common carotid artery. The left subclavian artery is dilated proximally measuring [...] false lumen. 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 Atherosclerotic changes in the right common iliac artery. External iliac artery: Dissection extends into the proximal left external iliac artery. There are diffuse atherosclerotic changes bilaterally without significant focal stenosis. 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 Common femoral artery: Patent without stenosis bilaterally. Superficial femoral artery: Patent without stenosis bilaterally. NONVASCULAR: Lines, tubes and hardware: None. Lower neck: The visible portions or the lower neck and thyroid are unremarkable. Axilla: Clear. Airway: Patent. Lungs and pleura: Emphysematous changes. Indeterminate 1 cm nodule left lower lobe (series 6 image 220) and 0.4 cm nodule in the right lower lobe (series 6 image 234). Nodular density in the left upper lobe (series 6 image 90) may be related to scarring. Mediastinum, [place] and intrathoracic lymph nodes: Normal. Heart and pericardium: Cardiac device with lead tips in the RA and RV and coronary sinus. Liver: Normal. Biliary tree: No intra- or extrahepatic bile duct dilation. Gallbladder: Normal. Pancreas: Normal. Spleen: Normal. Adrenals: Normal. Kidneys and ureters: Decreased opacification of the left kidney which is probably related to supply from the false lumen with questionable thrombus limited inflow as well. Bilateral perinephric fluid. Cyst in the lower pole of the left kidney. Bladder: Normal. Reproductive organs: Normal. Gastrointestinal tract: Diverticulosis. Hiatal hernia. Multiple gas-filled loops of small bowel probably reflects ileus. Peritoneum, mesentery and retroperitoneum: No free air, ascites or loculated fluid. Lymph nodes: Normal. Bones: Tarlov cyst. Please refer to dedicated musculoskeletal pelvic and spinal CTs performed recently. Patchy demineralization which most likely represents osteopenia. Healed left inferior pubic ramus fracture. Soft tissues: Normal. IMPRESSION: 1. 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 Dissection starts above the graft extending into the right brachiocephalic artery and the right internal carotid artery, as well as the left subclavian artery with dilatation measuring 2.5 cm, 1.6 cm and 1.8 cm respectively. There is significant compression of the right internal carotid artery true lumen with opacification of the false lumen. The descending aorta measures up to 4.8 cm in the proximal segment. The false lumen measures about 2.4 cm and is partially opacified. 2. The dissection extends into the left common iliac artery with dilatation measuring 2.4 cm as well as the proximal left external iliac artery. 3. Asymmetric decreased opacification of the left kidney is probably related to combination of flow from the false lumen with questionable nonocclusive thrombus or mixing artifact at the origin. 4. There is severe atherosclerotic narrowing of the proximal SMA (series 9 image 90) and origin of the MISAEL. Mild narrowing of the origin of the celiac probably related to median arcuate ligament compression. 5. 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 6. There is an indeterminate 1.0 x 0.7 cm nodule in the left lower lobe. Comparison with any prior exam would be helpful. 7. Diffuse patchy demineralization throughout the visualized bones most likely represent osteoporosis. 8. There is an expansile cystic lesion involving the right S1 neural foramina (series 5 image 33), consistent with a Tarlov cyst. 9. Healed fracture of the left inferior pubic ramus. 10. Multiple noninflamed diverticuli. 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 Gordon via telephone at 03/30/2022 20:23 by Breezy Sterling MD [facility] 2022-03-30 19:30:00 EXAM: CT PELVIS WITH OUT CONTRAST EXAM: 3D RECONSTRUCTIONS DATE: 03/30/2022 13:10 INDICATION: - sacral fracture, assessing pelvic ring COMPARISON: Lumbar spine CT March 30, 2022 0931 hours TECHNIQUE: Volumetric CT of the pelvis is acquired without contrast. Axial, coronal and sagittal images are provided. 3D volume-rendered reconstructions are created at the acquisition workstation. IV contrast: None. DLP: Refer to CT protocol form [place] SECTION: ER FINDINGS: [employer] Operator: Noncontributory. Bones: Again noted is the anterior buckling of the sacrum at S3 which could represent a fracture of indeterminate age. Remainder the pelvic ring is intact. No pubic symphysis or sacroiliac joint diastasis. There is patchy demineralization throughout the pelvis most pronounced in both femoral heads. This most likely represents osteoporosis but the possibility of multiple myeloma or hematogenously spread bone metastases might be considered in the proper clinical setting. 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 Healed fracture of the left inferior pubic ramus. Intrapelvic soft tissues: Multiple noninflamed diverticuli. Surrounding soft tissues: Within normal limits. IMPRESSION: 1. Possible buckle fracture of the sacrum at S3, age indeterminate, seen somewhat better on the lumbar spine CT because of greater image detail. 2. Patchy demineralization seen throughout the pelvis and femurs, which may simply indicate osteoporosis but might indicate myeloma versus metastatic disease in the proper clinical setting. 3. 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 Recommend further evaluation with MRI of the sacrum. [facility] 2022-03-30 13:06:33 EXAM: CT BRAIN WITHO UT CONTRAST DATE: 03/30/2022 INDICATION: - stability scan, SDH. COMPARISON: Same day head CT at 0927 hours. TECHNIQUE: Axial CT images of the brain were obtained. Sagittal and coronal reformats. IV contrast: None DLP: Refer to CT protocol form FINDINGS: No significant interval change in the hypodense subdural collections along the bilateral cerebral convexities with trace linear hyperdensities in the collections, greater in the left frontal convexity. The left subdural collection measuring up to 1.3 cm in maximal thickness and the right subdural collection measures about 1.7 cm in maximal thickness with mass effect upon the underlying brain parenchyma. There is unchanged 0.3 cm right to left midline shift. Trace thin hyperattenuating hemorrhage along the posterior falx and tentorium again noted. The skull base, calvarium, and included facial bones are unremarkable. The paranasal sinuses are predominantly clear. IMPRESSION: No significant interval change in the subdural hematomas along the bilateral cerebral convexities, with unchanged mass effect and 0.3 cm right to left midline shift. UT SECTION: Neuro [facility] 2022-03-30 13:06:33 EXAM: CT THORACIC SP INE WITHOUT CONTRAST DATE: 03/30/2022 12:42 INDICATION: - S2 and S3 fracture, ortho requesting entire spine imaging COMPARISON: None TECHNIQUE: Volumetric acquisition of the thoracic spine without contrast. Axial, sagittal and coronal reconstructions. IV contrast: None. DLP: Please see CT dose report FINDINGS: No acute fracture or malalignment. Vertebral body and disc heights are preserved. No significant osseous degenerative changes. The pre and paravertebral soft tissues are within normal limits. Evaluation of the aorta is limited without intravenous contrast. 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 Atherosclerotic calcifications of aorta are present. Diffuse centrilobular emphysema is noted. Bilateral dependent atelectasis and/or scarring is noted. Trace left pleural effusion/pleural thickening. Note made of median sternotomy changes IMPRESSION: 1. No acute fracture or malalignment 2. Evaluation of the aorta is limited without intravenous contrast. Within this limitation, there appears to be type B aortic dissection which is age indeterminate. If there is clinical concern for acute aortic dissection, recommend correlation with dedicated CTA findings. 3. Centrilobular emphysema [facility] 2022-03-30 09:17:49 EXAM: CT BRAIN WITHO UT CONTRAST DATE: 03/30/2022 INDICATION: - head trauma. COMPARISON: None. TECHNIQUE: Axial CT images of the brain were obtained. Sagittal and coronal reformats. IV contrast: None DLP: Refer to CT protocol form FINDINGS: Heterogeneous, predominantly hypodense subdural collections are seen along bilateral cerebral convexities. Associated trace linear hyperdensities are observed in bilateral subdural collections, greater in the left frontal convexity. The subdural collection on the left measures up to 1.3 cm in maximum thickness on the coronal plane. The subdural collection along the right measures 1.8 cm in maximum thickness resulting in local mass effect upon the underlying brain parenchyma and trace midline shift towards the left. Trace thin hyperattenuating hemorrhage along the posterior falx and tentorium. The stroud-white matter differentiation is preserved. preserved. There is no evidence of downward herniations. Ventricular size and configuration are are preserved. The perimesencephalic cisterns are patent. IMPRESSION: Bilateral subdural hemorrhages (1.3 cm thick on the left and 1.8 cm on the right) with focal hyperdense blood products that are likely recent and are larger in the left frontal convexity. Associated mass effect resulting in trace midline shift towards the left. Critical findings were communicated to Dr. Finn from the Emergency Room by neuroradiology fellow over the phone at 10:15 AM. [facility] 2022-03-30 09:17:49 EXAM: CT LUMBAR SPIN E WITHOUT CONTRAST DATE: 03/30/2022 8:51 INDICATION: - concern for spinal fx COMPARISON: None TECHNIQUE: Volumetric acquisition of the lumbar spine without contrast. Axial, [...] is present. 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 Abdominal aorta is incompletely assessed without intravenous contrast and demonstrates chronic dissection versus postsurgical changes an severe aortoiliac atherosclerotic calcifications. Extensive sigmoid diverticulosis is present. Nonspecific bilateral perirenal fat stranding is visualized. No evidence of pre-/paravertebral soft tissue abnormality/hematoma. IMPRESSION: 1. Subtle linear lucency through the posterior elements of S2 and buckling of the anterior cortex of S3, concerning for nondisplaced fractures. Please correlate with focal tenderness 2. Degenerative changes of the lumbar spine with severe L2-3 and L3-4 degenerative disc disease 3. 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 This can be confirmed with nonemergent MRI findings 4. Incompletely assessed abdominal aorta which demonstrates chronic dissection versus postsurgical changes and severe aortoiliac atherosclerotic calcifications 5. Extensive sigmoid diverticulosis [facility] 2022-03-30 09:17:49 EXAM: CT CERVICAL SP INE WITHOUT CONTRAST DATE: 03/30/2022 8:50 INDICATION: - pain after trauma COMPARISON: None TECHNIQUE: Volumetric acquisition of the cervical spine without contrast. Axial, sagittal and coronal reconstructions. IV contrast: None. DLP: Please see CT dose report FINDINGS: The spine is imaged from the skull base to the level of T3. No acute fracture. Moderate to severe multilevel degenerative changes of the spine are visualized with multilevel disc space narrowing most pronounced at C6-7 level, multilevel small osteophytes, facet and uncovertebral hypertrophy. Minimal degenerative anterolisthesis of C7 over T1. The pre and paravertebral soft tissues are within normal limits. No apical pneumothorax. Note made of biapical centrilobular emphysematous changes. Note made of median sternotomy changes. IMPRESSION: 1. No acute fracture or malalignment. 2. Moderate to severe multilevel degenerative changes of the spine. 3. Biapical centrilobular emphysematous changes. [facility] 2022-03-30 09:03:15 EXAM: XR LEFT HIP 1 VIEW AND AP PELVIS DATE: 03/30/2022 8:51 INDICATION: - Pain after trauma COMPARISON: None TECHNIQUE: A frog-leg lateral radiograph of the left hip and a [...] identified. IMPRESSION: No acute fracture or malalignment [facility] 2022-03-30 09:03:15 EXAM: XR CHEST 1 VIE W DATE: 03/30/2022 8:57 INDICATION: - pain after Trauma COMPARISON: None TECHNIQUE: AP chest FINDINGS: Mild cardiomegaly and tortuous aorta with aortic arch calcifications. Prostatic cardiac valve is noted. Note made of median sternotomy changes. Lungs are hyperinflated and clear. No focal consolidation. No pleural effusions or pneumothorax. No acute osseous abnormality. Note made of diffuse osteopenia. Surgical clips project over the right upper chest wall IMPRESSION: No acute radiographic abnormality [facility]
--- NOTE | 2024-12-12 21:33 | RAD REPORT ---
EXAM: CT brain without contrast HISTORY: TRAUMA COMPARISON: None TECHNIQUE: Multiple contiguous axial images were obtained and a CT of the brain without contrast. Sag ittal and coronal reformats were performed. FINDINGS: No evidence of hydrocephalus, intracranial hemorrhage, or extra-axial fluid collection. Right parietal focus of encephalomalacia suggesting sequelae of remote ischemia. Mild brain atrophy with mild periventricular and deep white matter chronic microvascular ischemic changes present. The calvarium is intact. Left forehead small swelling and hematoma. The visualized paranasal sinuses and mastoid air cells are essentially clear. IMPRESSION: No evidence of acute intracranial abnormality. Left forehead small swelling and hematoma. EXAM: CT of the cervical spine without contrast HISTORY: TRAUMA COMPARISON: None TECHNIQUE: Multiple contiguous axial images were obtained in a CT of the cervical spine without contr ast. Sagittal and coronal reformats were performed. FINDINGS: The vertebral bodies demonstrate normal height and alignment. No evidence of acute fracture or subluxation.. Moderate multilevel degenerative changes are present. The degrees of disc height loss most pronounced at C6-7 with partial ankylosis. The moderate bilateral neural foraminal narrowing at C5-6. No prevertebral soft tissue swelling is se en. The posterior facets are well aligned. Normal alignment of the skull base with the cervical spine is seen. The lung apices show moderate centrilobular emphysematous changes. IMPRESSION: No evidence of acute osseous abnormality of the cervical spine. Degenerative changes as above
--- NOTE | 2024-12-12 21:36 | EDPHYS ---
Physician Documentation [facility] Name: Ehsan Ayala Age: 84 yrs Sex: Male : 1940 Arrival Date: 12/12/2024 Time: 20:22 Bed 17 Private MD: ED Physician Cynthia Fernandez HPI: 12/12 21:39 This 84 yrs old Male presents to ER via Ambulatory with complaints of Fall Injury. kb 21:39 Pt is an 84 year old male who presents for head injury due to fall. Pt states he was kb trying to stand up from wheelchair and fell. Denies loc. Reports pain to forehead. . Historical: - Allergies: 20:26 No Known Allergies; jb4 - PMHx: 20:26 Acute Kidney Failure; fracture of sacrum; Hypercholesterolemia; Hypertensive disorder; jb4 UTI; - PSHx: 20:26 Heart-valve replacement; Pacemaker placement; jb4 - Immunization history:: Adult Immunizations up to date. - Infectious Disease History:: Denies. - Social history:: Smoking status: Patient denies any tobacco usage or history of. ROS: 21:37 Constitutional: As per HPI kb Exam: 21:37 Constitutional: This is a well developed, well nourished patient who is awake, alert, kb and in no acute distress. Eyes: Pupils equal round and reactive to light, extra-ocular motions intact. Lids and lashes normal. Conjunctiva and sclera are non-icteric and not injected. Cornea within normal limits. Periorbital areas with no swelling, redness, or edema. ENT: Moist Mucous membranes Cardiovascular: Regular rate Respiratory: Respirations even and unlabored. No increased work of breathing. Talking in full sentences Skin: Warm, dry with normal turgor. Normal color. Neuro: Awake and alert, GCS 15, oriented to person, place, time, and situation. 21:37 Head/face: Noted is no obvious of injury or deformity except hematoma, that is mild, of the forehead, 21:37 Musculoskeletal/extremity: Extremities: grossly normal except: noted in the right knee: abrasion, erythema, ROM: no acute changes, Circulation is intact in all extremities. Sensation intact. Vital Signs: 20:31 BP 133 / 84; Pulse 68; Resp 16; Temp 98; Pulse Ox 97% on R/A; jb4 21:49 BP 118 / 54; Pulse 68; Resp 16; Pulse Ox 94% on R/A; jb4 MDM: 20:28 Medical Screening Exam initiated kb 21:38 Differential diagnosis: abrasion, closed head injury, contusion, fracture. Data kb reviewed: vital signs, nurses notes. Test considered but Not performed: X-ray: xray of knees considered but pt has no bony tenderness. Historians other than the Patient: EMS: [facility]. Counseling: I had a detailed discussion with the patient and/or guardian regarding the historical points, exam findings, and any diagnostic results supporting the discharge/admit diagnosis, radiology results, the need for outpatient follow up, a family practitioner, to return to the emergency department if symptoms worsen or persist or if there are any questions or concerns that arise at home. 12/12 20:28 Order name: CT Head C Spine; Complete Time: 21:35 kb Administered Medications: No medications were administered Disposition Summary: 12/12/24 21:36 Discharge Ordered Notes: Location: Home kb Condition: Stable kb Diagnosis - Fall on same level, unspecified kb - Unspecified injury of head, initial encounter kb Followup: kb - With: Emergency Department - When: As needed - Reason: Worsening of condition Followup: kb - With: Private Physician - When: 2 - 3 days - Reason: Recheck today's complaints, Continuance of care, Re-evaluation by your physician Discharge Instructions: - Discharge Summary Sheet kb - Head Injury, Adult, [id number] kb Forms: - Medication Reconciliation Form kb - Antibiotic Education kb - Prescription Opioid Use kb - Patient Portal Instructions kb - Leadership Thank You Letter kb Signatures: Dispatcher [employer] Alejandra Leo FNP-C FNP-Delbert Whyte, RN RN jb4
--- NOTE | 2024-12-12 21:36 | ER ---
Nurse's Notes [facility] Name: Ehsan Ayala Age: 84 yrs Sex: Male : 1940 Arrival Date: 12/12/2024 Time: 20:22 Bed 17 Private MD: Diagnosis: Fall on same level, unspecified;Unspecified injury of head, initial encounter Presentation: 12/12 20:24 Chief complaint: EMS states: Pt slid out of his wheelchair and hit his head. No LOC, jb4 Band-Aid applied to small laceration left side of the forehead. Coronavirus screen: At this time, the client does not indicate any symptoms associated with coronavirus-19. Ebola Screen: No symptoms or risks identified at this time. Initial Sepsis Screen: Does the patient meet any 2 criteria? No. Patient's initial sepsis screen is negative. Does the patient have a suspected source of infection? No. Patient's initial sepsis screen is negative. Risk Assessment: Do you want to hurt yourself or someone else? Patient reports no desire to harm self or others. Onset of symptoms was December 12, 2024. Transition of care: patient was not received from another setting of care. 20:24 Method Of Arrival: Ambulatory jb4 20:24 Acuity: CARLOS 4 jb4 Historical: - Allergies: 20:26 No Known Allergies; jb4 - PMHx: 20:26 Acute Kidney Failure; fracture of sacrum; Hypercholesterolemia; Hypertensive disorder; jb4 UTI; - PSHx: 20:26 Heart-valve replacement; Pacemaker placement; jb4 - Immunization history:: Adult Immunizations up to date. - Infectious Disease History:: Denies. - Social history:: Smoking status: Patient denies any tobacco usage or history of. Screenin:49 [facility] ED Fall Risk Assessment (Adult) History of falling in the last 3 months, jb4 including since admission Yes- single mechanical fall (1 pt) Confusion or Disorientation No (0 pts) Intoxicated or Sedated No (0 pts) Impaired Gait Yes (1 pt) Mobility Assist Device Used Yes (1 pt) Altered Elimination No (0 pt) Score/Fall Risk Level 3 or more points = High Risk Oriented to surroundings, Maintained a safe environment. Abuse screen: Denies threats or abuse. Nutritional screening: No deficits noted. Tuberculosis screening: No symptoms or risk factors identified. Assessment: 20:15 General: Appears in no apparent distress. comfortable, Behavior is calm, cooperative, jb4 appropriate for age. Pain: Denies pain. Neuro: Level of Consciousness is awake, alert, obeys commands, Oriented to person, place, time, situation. Cardiovascular: Patient's skin is warm and dry. Respiratory: Airway is patent Respiratory effort is even, unlabored, Respiratory pattern is regular, symmetrical. Derm: Skin is intact, Skin is pink, warm \T\ dry. Musculoskeletal: Circulation, motion, and sensation intact. Range of motion: intact in all extremities. 21:49 Reassessment: Patient appears in no apparent distress at this time. Patient and/or jb4 family updated on plan of care and expected duration. Pain level reassessed. Patient is alert, oriented x 3, equal unlabored respirations, skin warm/dry/pink. 21:50 Reassessment: d/c pending EMS transport. jb4 Vital Signs: 20:31 BP 133 / 84; Pulse 68; Resp 16; Temp 98; Pulse Ox 97% on R/A; jb4 21:49 BP 118 / 54; Pulse 68; Resp 16; Pulse Ox 94% on R/A; jb4 ED Course: 20:24 Patient arrived in ED. jb4 20:26 Triage completed. jb4 20:26 Arm band placed on right wrist. jb4 20:28 Alejandra Dumont FNP-C is [facility]. kb 20:28 Cynthia Fernandez MD is Attending Physician. kb 21:08 CT Head C Spine In Process Unspecified. EDMS 21:49 Patient has correct armband on for positive identification. Bed in low position. Call jb4 light in reach. Side rails up X 1. Provided Education on: plan of care. 21:49 No provider procedures requiring assistance completed. Patient did not have IV access jb4 during this emergency room visit. Administered Medications: No medications were administered Medication: 21:49 VIS not applicable for this client. jb4 Outcome: 21:36 Discharge ordered by . kb 21:49 Discharged to home via ambulance, jb4 21:49 Condition: stable 21:49 Discharge instructions given to patient, Instructed on discharge instructions, follow up and referral plans. Demonstrated understanding of instructions, follow-up care, 22:12 Patient left the ED. jb4 Signatures: Dispatcher [employer] EDMS Alejandra Dumont FUNERAL CAR DRIVER-C FUNERAL CAR DRIVER-Ckb Delbert Naqvi, RN RN jb4
[2024-12-12 22:44] VITALS: TEMP 98
[2024-12-12 22:47] VITALS: BP 118/54; O2SAT 94
== END 2024-12-12 22:12 | disposition home or self-care (01) ==
LOC: ER 20:22
DX: S09.90XA Unspecified injury of head, initial encounter (principal); W18.39XA Other fall on same level, initial encounter; Z95.0 Presence of cardiac pacemaker; Z95.2 Presence of prosthetic heart valve
CPT/HCPCS: 70450; 72125; 99282